=== PATIENT | female | born 1960 | race Caucasian/White ===

== ENCOUNTER 2017-05-04 17:57 | Inpatient (IN) ==
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
[2017-05-04] MEDS ORDERED: Acetaminophen 325 MG TABLET PO ONE (19:57)
[2017-05-04] MEDS ORDERED: Ketorolac 30 MG/ML VIAL IM ONE (20:01)
[2017-05-04] MEDS ORDERED: 0.9 % Sodium Chloride 1,000 ML IVC ONE (20:56)
[2017-05-04] MEDS ORDERED: Ondansetron 4 MG/2 ML VIAL IVP ONE (20:58)
[2017-05-04] MEDS ORDERED: *HR* Morphine 2 MG/ML SYRINGE IVP ONE (20:58)
[2017-05-04 21:31] LABS: Hematocrit 35.3 % (35.3-44.9); Hemoglobin 12.3 g/dL (11.5-15.4); Mean Corpuscular HGB Conc 34.8 g/dL (31.6-35.5); Mean Corpuscular Hemoglobin 30.1 pg (28.0-33.3); Mean Corpuscular Volume 86.3 fL (83.0-100.0); Mean Platelet Volume 10.4 fL (9.4-12.4); Platelet Count 238 K/mcL (140-400); Red Blood Count 4.09 M/mcL (3.82-4.97); Red Cell Distribution Width 13.6 % (11.5-14.5)
[2017-05-04 21:43] LABS: BUN/Creatinine Ratio 21 (6-26); Blood Urea Nitrogen 15 mg/dL (7-20); Calcium 9.6 mg/dL (8.6-10.8); Carbon Dioxide 22 mEq/L (19-29); Chloride 97 mEq/L (98-109); Glucose 122 mg/dL (70-99); Osmolality,Calculated 266 (280-300); Potassium 3.7 mEq/L (3.5-4.5); Sodium 127 mEq/L (136-145); eGFR For African Americans > 60 (> 60); eGFR For Non-African Americans > 60 (> 60)
[2017-05-04 22:05] LABS: Lymphocytes # 1.7 K/mcL (0.6-4.6); Monocytes # 0.6 K/mcL (0.0-1.3); Neutrophils # 25.5 K/mcL (1.6-8.9)
[2017-05-04 22:07] LABS: Platelet Estimate Normal (Normal)
[2017-05-04 22:13] LABS: C-Reactive Protein 365 mg/L (Less than 5)
[2017-05-04] MEDS ORDERED: Vancomycin 750 MG in D5% in Water 250 ML IVPB ONE (23:19)
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
[2017-05-05] MEDS ORDERED: Piperacillin/Tazobactam 4.5 GM in D5% in Water (Mini-Bag+) 100 ML IVPB ONE (02:27)
[2017-05-05] MEDS ORDERED: Ondansetron 4 MG/2 ML VIAL IVP ONE (02:53)
[2017-05-05] MEDS ORDERED: Cefepime HCl 2,000 MG in Water for inj. (sterile) 20 ML IVP ONE (03:00)
--- NOTE | 2017-05-05 03:02 | Internal Med History&Physical ---
<Rigoberto Martinez - Last Filed: 05/05/17 04:29> Date of Encounter: 05/05/17 Time of Encounter: 02:58 Assessment and Plan (1) Neoplastic disease Current visit: Yes Status: Acute Femur XR: - Mottle appearance of the proximal right femur with destructive lesions CT Femur: - Aggressive multifocal lytic lesions of the proximal right femur involving the femoral neck, intertrochanteric femur, and proximal diaphysis compatible with neoplastic disease such as metastasis or myeloma. Suspected acute nondisplaced pathologic fracture of the intertrochanteric femur. Soft tissue component extending deep to and possibly partially within the proximal vastus intermedius muscle. Additionally, there are small lucent lesions seen in the medial and lateral right distal femoral condyles and medial tibial plateau may also represent neoplastic disease. CTA: - Ruled out PE or other acute processes. No lesions seen in the chest. Considering primary lymphoma vs myeloma vs metastatic disease. Ca normal 9.6. Kidney function normal Cr 0.70. - Ordered protein electrophoresis and immunoelectrophoresis. LFTs in the am. Will await imaging/biopsy recommendations with Hem/Onc consult pending. (2) Abscess, gluteal, left Current visit: Yes Status: Acute Surgery managing. No fluctuance noted on exam. NPO IVF @ 125 NS Zosyn (3) Pathologic fracture of femur Current visit: Yes Status: Acute NPO Bed Rest Pain control Ortho and Hem/Onc consult pending Qualifiers: Pathology associated with fracture: neoplastic disease Encounter type: initial encounter Laterality: right Qualified Code(s): M84.551A - Pathological fracture in neoplastic disease, right femur, initial encounter for fracture (4) Leukocytosis Current visit: Yes Status: Acute WBC 28.3 on arrival. Will continue to trend. Blood cultures drawn Zosyn and Vancomycin Qualifiers: Leukocytosis type: unspecified Qualified Code(s): D72.829 - Elevated white blood cell count, unspecified (5) Tobacco abuse Current visit: Yes Status: Chronic Smokes 1PPD for 30 years. Nicotine patch. Internal Medicine - H&P: HPI Chief complaint: right leg pain Admitted From: Home Plans for Post Hospital Care: Home History of present illness: Ms. Zacarias is a very pleasant 56 year old female with a benign past medical history who presents to the [facility] Emergency Department with a chief complaint of right leg pain. 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 Patient landed on her side but the employee fell onto her leg. She felt some achy pain located about her right hip initially but continued to walk on her leg. The non-radiating pain progressively increased over the next two days and her OTC Aleve was not providing relief. Today her pain was 8/10 and she decided to come into the ER for treatment. No history of this complaint previously. On arrival, patient was tachycardic 141 but otherwise stable. EKG showing sinus tachycardia. WBC 28.3, Hgb 12.3, na 127, Cr 0.7 and CRP 365. Blood cultures drawn. Femur XR demonstrated mottle appearance of the proximal right femur with destructive lesions that prompted a CT showing aggressive multifocal lytic lesions of the proximal right femur involving the femoral neck, intertrochanteric femur, and proximal diaphysis compatible with neoplastic disease such as metastasis or myeloma. Suspected acute nondisplaced pathologic fracture of the intertrochanteric femur. Soft tissue component extending deep to and possibly partially within the proximal vastus intermedius muscle. Additionally, there are small lucent lesions seen in the medial and lateral right distal femoral condyles and medial tibial plateau may also represent neoplastic disease. CTA of chest ruled out PE or other acute processes. No lesions seen in the chest. Abd/Pelvis CT revealing fat stranding with multiple bubbles of soft tissue gas in the left perirectal region, left perineum and medial left buttocks. There is no drainable fluid collection/abscess. She was subsequently given Vancomycin , Zosyn and Cefepime. On evaluation, she states that she smokes 1 PPD for 30 years. No EtOH use. Grandfather of colon cancer with no immediate family medical history. She does not follow a PCP at the moment. Gen Surg, Hem/Onc and Ortho consulted. Ms. Zacarias will be admitted to [facility] for further workup and management. Past Med Surg Social Fam HX - Past Medical History Medical history: other Psychiatric history: anxiety - Social History Smoking Status: Current every day smoker Packs per day: 1 Smokeless Tobacco Status: No Alcohol use: none Drug use: marijuana Internal Medicine - H&P: Meds No Known Home Drugs 05/05/17 [History] 3 Allergy/AdvReac Type Severity Reaction Status Date / Time No Known Allergies Allergy Verified 05/04/17 18:30 All Systems PM: A 10-system review of systems was performed and is negative for pertinent findings except as documented above in the HPI. - Constitutional Constitutional: no fatigue, no weight loss - EENT Eyes: no change in vision - Cardiovascular Cardiovascular ROS IM: no chest pain, no diaphoresis, no lightheadedness - Respiratory Respiratory: no cough - Gastrointestinal Gastrointestinal: nausea, no constipation, no diarrhea, no hematemesis, no hematochezia - Genitourinary Genitourinary: no dysuria, no flank pain - Musculoskeletal Musculoskeletal ROS IM: as per HPI - Neurological Neurological ROS: no frequent falls, no headache(s) - Psychiatric Psychiatric: no anxiety, no depression - Constitutional Vitals: Temp Pulse Resp BP Pulse Ox 98.5 F 86 17 93/59 96 05/05/17 01:20 05/05/17 01:20 05/05/17 01:20 05/05/17 01:20 05/05/17 01:20 General appearance: Present: A&O X 3, no acute distress - Head Head exam: Present: atraumatic, normocephalic - Eye Eye exam: Present: EOMI, conjuntiva pink, sclera anicteric - Neck Neck exam general surgery: Present: supple, trachea midline - Respiratory Respiratory exam: Present: CTAB. Absent: accessory muscle use - Cardiovascular Cardiovascular exam: Present: RRR, +S1, +S2 - GI/Abdominal GI/Abdominal exam: Present: normal bowel sounds, soft. Absent: distended, guarding, tenderness - Rectal Rectal exam: Present: deferred - Extremities Exam Extremities exam: Present: normal capillary refill. Absent: calf tenderness, cyanotic - Neurological Exam Neurological exam: Present: oriented X3, no focal deficits - Psychiatric Psychiatric exam: Present: normal affect, normal mood - Skin Skin exam: Present: normal color. Absent: cyanosis, diaphoretic, erythema Internal Med - H&P Results - Labs CBC & Chem 7: 05/04/17 21:13 05/04/17 21:13 <Raphael Kenyon T - Last Filed: 05/05/17 05:10> Date of Encounter: 05/05/17 Assessment and Plan (1) Sepsis Current visit: Yes Status: Acute Qualifiers: Sepsis type: sepsis due to unspecified organism Qualified Code(s): A41.9 - Sepsis, unspecified organism Internal Medicine - H&P: HPI History of present illness: Ms. Zacarias is a 56 year old female All Systems PM: A 10-system review of systems was performed and is negative for pertinent findings except as documented above in the HPI. - Constitutional Vitals: Temp Pulse Resp BP Pulse Ox 99.1 F 94 17 105/65 95 05/05/17 04:33 05/05/17 04:33 05/05/17 04:33 05/05/17 04:33 05/05/17 04:33 Internal Med - H&P Results - Labs CBC & Chem 7: 05/04/17 21:13 05/04/17 21:13 - Attending Attestation I have independently seen and examined this patient on 05/05/17 , and discussed plan of care with the resident whose documentation reflects our plan of care with the exceptions set forth below #Patient has sepsis with tachycardia, elevated WBC and a Right gluteal abscess suspicious for gas producing organcism, of note her R gluteal region is not erythematous. -Continue vanc and Zosyn till cultures are resulted, follow blood cultures, HR and blood pressure improving,continue IVF hydration #Patient also has lytic bony lesions suspicious for lymphoma, less likely multiple myeloma-Send UPEP/SPES. heme/Onc eval. MM in 2013 was normal, has never had a colonoscopy, does not see a PCP #pathologic fracture-Patient had a fall 4 days prior to presentation and continues to ambulate on that limb. Bed rest till ortho eval #Nicotine abuse: She is counselled about cessation, requests NRT Rest of details as in resident physician's documentation
[2017-05-05] MEDS: Piperacillin/Tazobactam 3.375 GM in D5% in Water 50 ML IVPB SCH ×3 (03:32→18:26)
[2017-05-05] MEDS ORDERED: Naloxone 0.4 MG/ML INJ IVP PRN ×2 (04:03→22:44)
[2017-05-05] MEDS ORDERED: Ondansetron 4 MG/2 ML VIAL IVP PRN ×2 (04:03→22:44)
[2017-05-05] MEDS ORDERED: *HR* Morphine 2 MG/ML SYRINGE IVP PRN (04:06)
[2017-05-05] MEDS ORDERED: Ketorolac 30 MG/ML VIAL IVP PRN (04:06)
[2017-05-05] MEDS ORDERED: Vancomycin 750 MG in D5% in Water 250 ML IVPB SCH ×2 (05:00→12:00)
[2017-05-05] MEDS: 0.9 % Sodium Chloride 1,000 ML IVC SCH ×2 (05:21→12:12)
--- NOTE | 2017-05-05 06:46 | Orthopedic Consult Note ---
Date of Encounter: 05/05/17 Time of Encounter: 06:44 History of Present Illness HPI: Ms. Zacarias is a 56 year old female With history of right hip buttock pain for a few months. Patient presented to the ER with increased pain. Patient being evaluated by general surgery for rectal abscess with possible multiple etiologies. Physical exam alert and oriented 3 No acute distress Loose right hip without pain Neurovascular intact X-rays show fracture of the proximal femur was mottled appearance of the proximal femur etiology unknown Presently would keep the patient nonweightbearing right lower extremity follow treatment for abscess hold any definitive surgery for the right femur until better understanding of etiology is known infection has resolved. Risk of seeding the hip is of concern for postoperative infection. We will work closely with the general surgery team and the oncology team to get a better understanding. Past Med Surg Social Fam HX - Past Medical History Medical history: other Psychiatric history: anxiety - Social History Smoking Status: Current every day smoker Packs per day: 1 Smokeless Tobacco Status: No Alcohol use: none Drug use: marijuana Medications and Allergies No Known Home Drugs 05/05/17 [History] 3 Allergy/AdvReac Type Severity Reaction Status Date / Time No Known Allergies Allergy Verified 05/04/17 18:30 All Systems Reviewed: A 10-system review of systems was performed and is negative for pertinent findings except as documented above in the HPI. Physical Exam - Constitutional Vitals: Temp Pulse Resp BP Pulse Ox 99.1 F 94 17 105/65 95 05/05/17 04:33 05/05/17 04:33 05/05/17 04:33 05/05/17 04:33 05/05/17 04:33 Results - Labs Result Diagrams: 05/04/17 21:13 05/04/17 21:13 Labs: Abnormal lab results WBC 28.3 K/mcL (4.3-11.1) H 05/04/17 21:13 Band Neutrophils % 14.0 % (0-4) H 05/04/17 21:13 Metamyelocytes % 2.0 % (0) H 05/04/17 21:13 Neutrophils # 25.5 K/mcL (1.6-8.9) H 05/04/17 21:13 ESR 118 mm/hr (0-15) H 05/04/17 21:13 Sodium 127 mEq/L (136-145) L 05/04/17 21:13 Chloride 97 mEq/L (98-109) L 05/04/17 21:13 Glucose 122 mg/dL (70-99) H 05/04/17 21:13 Calculated Osmolality 266 (280-300) L 05/04/17 21:13 C-Reactive Protein 365 mg/L (Less than 5) H 05/04/17 21:13 All other labs normal. Consult Discharge Plan - Plan Referrals: NONE,PCP [Primary Care Provider] -
[2017-05-05] MEDS ORDERED: Aminoglycoside Consult 1 EACH MC ONE (07:02)
[2017-05-05] MEDS ORDERED: Nicotine 21 MG PATCH.TD24 TD SCH (09:00)
[2017-05-05 09:17] LABS: Basophils % 0.2 %; Lymphocytes % 1.6 %; Red Cell Distribution Width 13.8 % (11.5-14.5)
[2017-05-05 09:19] LABS: Basophils # 0.1 K/mcL (0.0-0.2); Hematocrit 32.4 % (35.3-44.9); Hemoglobin 10.9 g/dL (11.5-15.4); Immature Granulocytes % 1.9 % (0-4); Lymphocytes # 0.4 K/mcL (0.6-4.6); Mean Corpuscular HGB Conc 33.6 g/dL (31.6-35.5); Mean Corpuscular Hemoglobin 29.5 pg (28.0-33.3); Mean Corpuscular Volume 87.8 fL (83.0-100.0); Mean Platelet Volume 10.8 fL (9.4-12.4); Monocytes # 1.2 K/mcL (0.0-1.3); Monocytes % 4.5 %; Neutrophils # 24.5 K/mcL (1.6-8.9); Platelet Count 218 K/mcL (140-400); Red Blood Count 3.69 M/mcL (3.82-4.97); Segmented Neutrophils % 91.8 %
[2017-05-05 09:54] LABS: Burr Cells 1+ (Not Present); Platelet Estimate Normal (Normal)
[2017-05-05] MEDS ORDERED: *HR* Promethazine 25 MG/ML VIAL IVP PRN ×2 (14:14→20:50)
--- NOTE | 2017-05-05 14:22 | Electrocardiograph Report ---
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
--- NOTE | 2017-05-05 17:38 | Internal Med Progress Note ---
Date of Encounter: 05/05/17 Time of Encounter: 17:36 - Assessment and plan (1) Fracture of femur Current Visit: Yes Status: Acute Qualifiers: Encounter type: initial encounter Femur location: intertrochanteric Fracture type: closed Fracture alignment: nondisplaced Laterality: right Qualified Code(s): S72.144A - Nondisplaced intertrochanteric fracture of right femur, initial encounter for closed fracture (2) Abscess, gluteal, left Current Visit: Yes Status: Acute - Subjective Interval history: Admitted for right hip pathological fracture perhaps related to metastatic process and orthopedic and oncology has seen the patient. Also has left gluteal abscess and Gen. surgery has seen the patient. She is on antibiotics. Her workup is in process. - Constitutional Vitals: Temp Pulse Resp BP Pulse Ox 98.2 F 80 15 114/70 95 05/05/17 12:23 05/05/17 12:23 05/05/17 12:23 05/05/17 12:23 05/05/17 12:23 General appearance: Present: A&O X 3, no acute distress - Head Head exam: Present: atraumatic, normocephalic - Eye Eye exam: Present: PERRL, conjuntiva pink, sclera anicteric Pupils: Present: PERRL - Neck Neck exam general surgery: Present: supple, trachea midline. Absent: lymphadenopathy - Respiratory Respiratory exam: Present: CTAB. Absent: accessory muscle use, rales, rhonchi, wheezes - Cardiovascular Cardiovascular exam: Present: RRR, +S1, +S2. Absent: diastolic murmur, gallop, rubs, systolic murmur - GI/Abdominal GI/Abdominal exam: Present: normal bowel sounds, soft, no peritoneal signs. Absent: distended, tenderness - Extremities Exam Extremities exam: Present: warm, radial pulses palpable and symmetrical. Absent : calf tenderness, cyanotic, pedal edema Additional comments: Bilateral hip pain and tenderness neurovascular status is stable - Neurological Exam Neurological exam: Present: CN II-XII intact, oriented X3, no focal deficits. Absent: pronater drift, facial droop, speech deficit - Skin Skin exam: Present: dry, intact Internal Medicine: Result - Labs CBC & Chem 7: 05/05/17 08:57 05/04/17 21:13 Labs: Short CBC 11/21/17 Range/Units 08:57 WBC 26.7 H (4.3-11.1) K/mcL Hgb 10.9 L (11.5-15.4) g/dL Hct 32.4 L (35.3-44.9) % Plt Count 218 (140-400) K/mcL Neutrophils # 24.5 H (1.6-8.9) K/mcL Consult Discharge Plan - Plan Referrals: NONE,PCP [Primary Care Provider] -
--- NOTE | 2017-05-05 18:46 | Oncology Inp Consult Note ---
<Edilma Terry L - Last Filed: 05/05/17 18:34> Date of Encounter: 05/05/17 Time of Encounter: 16:30 Assessment and Plan (1) Fracture of femur Status: Acute Assessment and plan: At this time continued workup is needed to rule out infectious process versus malignancy. Lytic bony lesions may be suspicious for multiple myeloma. Leukocytosis most likely secondary to abscess or infectious process within right femur. Currently there is no other evidence or sign of malignancy within scans obtained thus far. Serum protein electrophoresis and immunoelectrophoresis have already been collected. We will follow with order for serum free light chains and 24-hour urine for Bence Momin protein. Pending these results, if negative, may consider further consult with orthopedics for role for surgical repair along with biopsy of lesion and NM bone scan/MRI if needed at that juncture. Patient would also benefit from annual mammogram screening as it has been 4 years since last mammogram. Recommendation was also given to establish with PCP. No other signs of advanced multiple myeloma with serum calcium within normal limits, no signs of advanced anemia (hgb 10.8), renal function within normal limits. Currently we will focus on pending workup for multiple myeloma, rule out infectious process with blood cultures pending, along with surgical consult for left gluteal abscess. Per patient she is being prepped for surgery this evening with Dr. Wang. The patient's workup for multiple myeloma was explained in detail by myself and Dr. Garza, attending oncologist, who also explained to the patient the need to rule out further infectious process. Oncology will continue to follow this patient's case along with oncologic laboratory results. Please refer to Dr. Garza's attestation for further details regarding patient's plan of care. Qualifiers: Encounter type: initial encounter Femur location: intertrochanteric Fracture type: closed Fracture alignment: nondisplaced Laterality: right Qualified Code(s): S72.144A - Nondisplaced intertrochanteric fracture of right femur, initial encounter for closed fracture - Data of Consult Patient: new to practice Requesting Physician: Heriberto Amezquita MD Primary Care Provider: PCP NONE Family Provider: PCP NONE - Consult Narrative History of present illness: Ms. Zacarias is a 56 year old female who presented to [facility] ER department with a chief complaint of right lower extremity pain. Femur x-ray demonstrated a mottled appearance of the proximal right femur with destructive lesions are prompted a CT. CT shows progressive multifocal lytic lesions of the proximal right femur involving the femoral neck intertrochanteric femur and proximal diaphysis compatible with neoplastic disease such as metastasis from melanoma. Suspected acute nondisplaced pathologic fracture of the intertrochanteric femur. Additionally there are small lucent lesion lesions seen in the medial and lateral right distal femoral condyles and medial tibial plateau which may represent neoplastic disease. CTA of the chest negative. Incidentally abdominal pelvis CT revealed a fat stranding area with multiple bubbles of soft tissue gas in the left perirectal region, left perineum and medial left buttocks. She denies prior GI symptoms such as rectal or abdominal pain, diarrhea, constipation or hematochezia. A left lower extremity pain has been progressive since December. She has been seeing a chiropractor and treating this as sciatica. Following a fall 4 days prior to her presentation to the ER the pain became unbearable. She has been walking with a cane for some time and reports a decrease in muscle mass to her right lower extremity due to the fact she has not been bearing weight on this right side. She presented to [facility] about one month ago and reportedly states doppler was negative for DVT. She reports she has been relatively healthy. She does not have a primary care physician. Medical history significant for anxiety/panic attacks, she took Xanax for some time and has been off this medication for about 4 years. Mammogram was last completed about 4 years ago along with DEXA scan. These results were reportedly negative per patient. She smoked one pack per day for 30 years, smoking cessation encouraged, she is not interested in quitting at this time. Family history significant for malignancy includes maternal grandmother with a history of leukemia or lymphoma patient could not remember exactly at this time , and a sister who has non-Hodgkin's lymphoma. Past Med Surg Social Fam HX - Past Medical History Medical history: other Psychiatric history: anxiety - Social History Smoking Status: Current every day smoker Packs per day: 1 Smokeless Tobacco Status: No Alcohol use: none Drug use: marijuana Medications and Allergies No Known Home Drugs 05/05/17 [History] 3 Allergy/AdvReac Type Severity Reaction Status Date / Time No Known Allergies Allergy Verified 05/04/17 18:30 Constitutional: Present: anorexia, chills, daytime sleepiness, headache(s), malaise Additional comments: Progressive worsening fatigue over past month Eyes: Absent: change in vision Breasts: Absent: mass, pain, nipple discharge, skin changes Cardiovascular: Absent: chest pain, edema, irregular heart rhythm Respiratory: Absent: cough, dyspnea Gastrointestinal: Present: bloating, nausea. Absent: abdominal pain, change in bowel habits, hematochezia, vomiting Genitourinary: Absent: abnormal vaginal bleeding Musculoskeletal: Present: abnormal gait, limited range of motion, radiating pain into limb Additional comments: RLE pain Additional comments: left gluteal abscess Neurological: Absent: focal weakness Psychiatric: Present: anxiety Endocrine: Absent: palpitations Hematologic/Lymphatic: Absent: easy bleeding, lymphadenopathy Oncology - Exam - Constitutional Vitals: Temp Pulse Resp BP Pulse Ox 98.2 F 80 15 114/70 95 05/05/17 12:23 05/05/17 12:23 05/05/17 12:23 05/05/17 12:23 05/05/17 12:23 General appearance: cooperative, no acute distress - Head Head exam: Present: normal inspection - Eye Eye exam: Present: EOMI - ENT ENT exam: Present: mucous membranes moist - Neck Neck exam: Present: full ROM. Absent: lymphadenopathy - Respiratory Respiratory exam: Present: CTAB - Cardiovascular Cardiovascular exam: Present: RRR. Absent: diastolic murmur, systolic murmur - GI/Abdominal GI/Abdominal exam: Present: normal bowel sounds, soft, tenderness. Absent: guarding, rebound - Rectal Additional comments: Left gluteal abscess with erythema tracking from rectum to left buttock - Extremities Exam Extremities exam: Absent: calf tenderness, pedal edema Additional comments: Pain and decrease range of motion to right lower extremity. Pedal pulses present bilaterally +2 - Neurological Exam Neurological exam: Present: alert, oriented X3 - Psychiatric Psychiatric exam: Present: normal affect Oncology - Results Labs: Short CBC 05/05/17 Range/Units 08:57 WBC 26.7 H (4.3-11.1) K/mcL Hgb 10.9 L (11.5-15.4) g/dL Hct 32.4 L (35.3-44.9) % Plt Count 218 (140-400) K/mcL Neutrophils # 24.5 H (1.6-8.9) K/mcL Consult Discharge Plan - Plan Referrals: NONE,PCP [Primary Care Provider] - <Moe Garza Last Filed: 05/06/17 08:37> Date of Encounter: 05/06/17 Time of Encounter: 18:30 - Data of Consult Requesting Physician: Heriberto Amezquita MD Primary Care Provider: PCP NONE Family Provider: PCP NONE - Consult Narrative History of present illness: Ms. Zacarias is a 56 year old female Oncology - Exam - Constitutional Vitals: Temp Pulse Resp BP Pulse Ox 97.9 F 76 24 95/73 97 05/06/17 07:36 05/06/17 06:00 05/06/17 06:00 05/06/17 06:00 05/06/17 06:00 Oncology - Results Labs: Short CBC 05/05/17 05/05/17 05/06/17 Range/Units 08:57 23:11 05:57 WBC 26.7 H 26.5 H 22.2 H (4.3-11.1) K/mcL Hgb 10.9 L 10.6 L 9.4 L (11.5-15.4) g/dL Hct 32.4 L 31.6 L 28.0 L (35.3-44.9) % Plt Count 218 226 219 (140-400) K/mcL Neutrophils # 24.5 H 24.8 H 20.6 H (1.6-8.9) K/mcL BMP 05/05/17 05/06/17 23:11 05:57 Sodium 132 L 134 L Potassium 3.9 4.2 Chloride 103 105 Carbon Dioxide 22 23 BUN 16 14 Creatinine 0.69 0.65 Glucose 119 H 203 H Calcium 8.6 8.4 L Liver Function 05/05/17 05/06/17 Range/Units 23:11 05:57 Total Bilirubin 0.4 0.4 (0.2-1.2) mg/dL AST 15 9 (5-34) Units/L ALT 28 21 (0-55) Units/L Alkaline Phosphatase 145 H 121 (38-126) Units/L Albumin 2.0 L 1.8 L (3.5-5.0) g/dL - Attending Attestation I examined this patient and my medical decision-making was reviewed with the Advanced Practice Nurse. I agree with the documented findings, disposition and treatment plan as described except to the extent set forth below. Ms. Zacarias is a very pleasant 56-year-old woman with multiple acute issues. Regard to her leukocytosis with left shift, this is related to her underlying infection involving her perirectal tissues. This patient does not have an acute leukemia. Dr. Wang is planning for debridement of this lesion later this evening. I expect her white blood cell count to decrease accordingly following treatment with antibiotics and surgery. Regarding her right hip findings, I agree this is suspicious for an underlying malignancy. Multiple myeloma is high on this list. Certainly a metastatic process from a solid tumor is also a possibility, however her CT imaging is unremarkable for a primary site of cancer and breast exam today is also negative. We have sent a serum protein electropheresis, immunofixation and serum free light chain as well as 24 urine collection for Bence-Momin proteinuria to evaluate for underlying paraproteinemia. If this is negative, tissue confirmation will likely require a biopsy of the affected area by Dr. Morris at time of surgery. Other considerations included infection such as osteomyelitis as well as Paget's disease.
[2017-05-05] MEDS ORDERED: *HR* Propofol 200 MG/20 ML VIAL IVP ONE ×3 (19:39→21:58)
[2017-05-05] MEDS ORDERED: *HR* Succinylcholine 200 MG/10 ML VIAL IVP ONE (19:39)
[2017-05-05] MEDS ORDERED: *HR* FentaNYL (PF) 100 MCG/2 ML VIAL ONE ×2 (19:39→21:45)
[2017-05-05] MEDS ORDERED: *HR* Midazolam HCl 2 MG/2 ML VIAL ONE ×3 (19:39→21:57)
[2017-05-05] MEDS ORDERED: Lidocaine -MPF 2% 2 ML VIAL ONE (19:39)
--- NOTE | 2017-05-05 19:50 | Anesthesia Evaluation PreOp ---
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 History: Other (anxiety) Other Medical History: Other (pathological femur fracture, electrolyte abnormalities including hyponatremia (Na = 127), gluteal abscess) Anesthesia History: No Prior Anesthetic Complications (except slow to wake up), Past Anesthesia (tubal) Alcohol Use: none Drug use: marijuana Medications and Allergies No Known Home Drugs 05/05/17 [History] 3 Allergy/AdvReac Type Severity Reaction Status Date / Time No Known Allergies Allergy Verified 05/04/17 18:30 - Meds/Allergy Pre-op Review Medications Reviewed: Yes Allergies Reviewed: Yes Beta Blockers on Current Med List: No Anesthesia Results - Labs 05/05/17 08:57 05/04/17 21:13 - Imaging EKG: report reviewed, image reviewed (ST (HR 132)) Anesthesia Exam Last Vital Signs Temp 98.2 F 05/05/17 12:23 Pulse 80 05/05/17 12:23 Resp 15 05/05/17 12:23 BP 114/70 05/05/17 12:23 Pulse Ox 95 05/05/17 12:23 Weight: 58 kg NPO (# of Hours): > 8 hrs - HEENT Pupil (Motor): Pupils equal, EOMI Mallampati: II Teeth: Edentulous Oral Opening: Greater than 3 - DENTIST ATTENDANT LOC: Oriented - Cardiac Rhythm: Regular Murmur: None - Pulmonary Breath Sounds: bilateral Clear Respiratory Effort: Symmetrical Anesthesia Assess/Plan ASA Score: 3 Modified Viviane Scale for Level of Consciousness: Cooperative, oriented, and tranquil Anesthetic Plan: General Monitoring Plan: Standard Monitors Recovery Plan: PACU
[2017-05-05] MEDS ORDERED: *HR* HYDROmorphone 2 MG/ML SYRINGE ONE (20:36)
[2017-05-05] MEDS ORDERED: Ondansetron 4 MG/2 ML VIAL ONE (20:40)
[2017-05-05] MEDS ORDERED: Dexamethasone 4 MG/ML VIAL ONE (20:40)
[2017-05-05] MEDS ORDERED: *HR* Phenylephrine 10 MG/ML VIAL ONE (20:46)
[2017-05-05] MEDS ORDERED: *HR* HYDROmorphone (PF) 1 MG/ML SYRINGE IVP PRN (20:50)
--- NOTE | 2017-05-05 22:26 | Anesthesia Evaluation Post Op ---
Date of Encounter: 05/05/17 Time of Encounter: 22:24 - Vital Signs Vital Signs: Last Vital Signs Temp 98.2 F 05/05/17 12:23 Pulse 80 05/05/17 12:23 Resp 15 05/05/17 12:23 BP 114/70 05/05/17 12:23 Pulse Ox 95 05/05/17 12:23 - Lungs Lungs: Clear Ascult./Percussion - Airway Airway: Intubated (Patient with significant tongue, lip, and carmen-orbital edema. Decision made to keep patient intubated, in spite of cuff leak with ETT , in case swelling were to worsen or airway became obstruction after extubation. In addition, patient is returning to surgery tomorrow for a second look (with necrotic bowel tissue). Conservatively, patient remained intubated. All vital signs remained stable otherwise.) - Cardiovascular Regular Rate - Mental Status Mental Status: Sedated (Patient sedated with versed and fentanyl post op, as she remains intubated.) - Pain Pain Scale used: Unable to assess - Nausea Vomiting Nausea Vomiting: Unable to assess - Hydration Hydration: NPO - Discharge PostOp Status: Transfer Patient to floor (Patient was sent to ICU, as her facial edema procluded safe extubation. Possible etiologies of the swelling include fluid overload (with just 1L LR given during the case), allergic reaction to medication given, angio-edema, etc. Etiology is still unclear at this time.)
[2017-05-05] MEDS ORDERED: FentaNYL (PF) 1,000 MCG in 0.9 % Sodium Chloride 80 ML IVC SCH ×2 (22:30→22:44)
[2017-05-05] MEDS ORDERED: Lacri-Lube 3.5 GM TUBE BOTH EYES PRN (22:44)
--- NOTE | 2017-05-05 22:49 | Operative Note ---
Date of procedure: 05/05/17 Pre-op diagnosis: perirectal abscess Post-op diagnosis: other (necrotizing soft tissue infection) Procedure: incision and drainage of perirectal abscess, sharp excisional debridement of necrotic perirectal tissue Implants: kerlix guaze x 2 Complications: none Anesthesia: GURWINDERA Surgeon: Álvaro Wang Estimated blood loss (cc): 25 Specimen: perirectal abscess, necrotized perirectal tissue Condition: stable Disposition: PACU (going to ICU) Procedure in Detail: The patient was brought into the operating room suite. Mechanical DVT prophylaxis was placed. She underwent smooth induction of anesthesia. She was placed in the prone position. Prepped and draped in the usual fashion. Preoperative antibiotics were given. A time out was held identifying correct patient, pathology, procedure, and physician. I created a 5cm incision along the lines of langerhan along her left glute and electrocautery was used to dissect deeper into the subcutnaeous tissue. Immediately there was a malodorous drainage. Culture swabs were used to obtain a sample of the fluid. I then used the Edilma instrument to enter into the abscess cavity. Using my finger I was able to bluntly dissect toward the anal canal. I used a bulb syringe with saline to evaluate whether or not there was a connection to the rectum. No saline was seen escaping into the anal canal. At this point I felt confident that there was no fistula. I was able to dissect approximately 8cm deep. I extended the incision, but making a second incision perpendicular to the original. It was at this point that I was able to see necrotizing, non viable tissue. The tissue was easy to bluntly dissect. I used electrocautery to remove any non viable, malodorous tissue. I excised until i encountered bleeding tissue, a marker for healthy, viable tissue. I sent a sample of the tissue for pathology. I continued to look for more necrotic tissue. I was able to find a path that led to the R glute. It arched over the anal canal in a semicircle or horseshoe pattern. It was at this time that I elected to stop because I was concerned about excising to much and 1.) invading into her sphinter muscles ( I am confident that I did not), and 2.) creating a larger defect/wound than was necessary at first operation. I packed the wound with soaking kerlix, covered with an ABD pad and paper tape with plans for a 2nd look procedure tomorrow. The patient tolerated the procedure, but there was concern that she would not extubate safely. I elected to keep the patient intubated.
[2017-05-05 23:18] LABS: Basophils % 0.2 %; Hematocrit 31.6 % (35.3-44.9); Hemoglobin 10.6 g/dL (11.5-15.4); Immature Granulocytes % 0.9 % (0-4); Lymphocytes # 0.4 K/mcL (0.6-4.6); Lymphocytes % 1.5 %; Mean Corpuscular HGB Conc 33.5 g/dL (31.6-35.5); Mean Corpuscular Hemoglobin 29.8 pg (28.0-33.3); Mean Corpuscular Volume 88.8 fL (83.0-100.0); Mean Platelet Volume 10.7 fL (9.4-12.4); Monocytes % 3.9 %; Neutrophils # 24.8 K/mcL (1.6-8.9); Platelet Count 226 K/mcL (140-400); Red Blood Count 3.56 M/mcL (3.82-4.97); Segmented Neutrophils % 93.5 %
[2017-05-05 23:19] LABS: Basophils # 0.1 K/mcL (0.0-0.2)
[2017-05-05] MEDS ORDERED: Cefepime HCl 2,000 MG in D5% in Water (Mini-Bag+) 100 ML IVPB ONE (23:22)
[2017-05-05] MEDS: Pantoprazole 40 MG VIAL IVP SCH (23:27)
[2017-05-05] MEDS: Lacri-Lube 3.5 GM TUBE BOTH EYES SCH (23:31)
[2017-05-05 23:32] LABS: Alanine Aminotransferase 28 Units/L (0-55); Albumin/Globulin Ratio 0.6 (1.1-2.2); Alkaline Phosphatase 145 Units/L (38-126); Aspartate Amino Transferase 15 Units/L (5-34); BUN/Creatinine Ratio 23 (6-26); Bilirubin,Total 0.4 mg/dL (0.2-1.2); Blood Urea Nitrogen 16 mg/dL (7-20); Calcium 8.6 mg/dL (8.6-10.8); Carbon Dioxide 22 mEq/L (19-29); Chloride 103 mEq/L (98-109); Globulin 3.4 g/dL (2.4-3.5); Glucose 119 mg/dL (70-99); Magnesium 1.6 mg/dL (1.6-2.6); Osmolality,Calculated 276 (280-300); Phosphorous 2.8 mg/dL (2.3-4.7); Potassium 3.9 mEq/L (3.5-4.5); Sodium 132 mEq/L (136-145); Total Protein 5.4 g/dL (6.0-8.3); eGFR For African Americans > 60 (> 60); eGFR For Non-African Americans > 60 (> 60)
[2017-05-05 23:35] LABS: Toxic Granulation Present (Not Present)
[2017-05-05] MEDS: D5% in Lactated Ringers 1,000 ML IVC SCH (23:58)
[2017-05-06] MEDS: Piperacillin/Tazobactam 3.375 GM in D5% in Water 50 ML IVPB SCH ×3 (02:15→18:36)
[2017-05-06] MEDS: Lacri-Lube 3.5 GM TUBE BOTH EYES SCH ×4 (04:07→20:35)
[2017-05-06 05:09] LABS: ABG Base Excess -1 mEq/L (-2 to 3); ABG HCO3 24 mEq/L (21-27); ABG Oxygen Saturation 96 % (95-98); ABG PCO2 38 mmHg (35-45); ABG PH 7.41 pH Units (7.32-7.45); ABG PO2 82 mmHg (85-104); ABG TCO2 25 mEq/L (20-26); Blood Gas Modality VC; Blood Gas PEEP 5 cm H2O; Blood Gas Respiration Rate 12; Blood Gas VT 500 cc
[2017-05-06] MEDS: Pantoprazole 40 MG VIAL IVP SCH (05:39)
[2017-05-06] MEDS ORDERED: *HR* Enoxaparin 40 MG/0.4 ML SYRINGE SQ SCH (06:00)
[2017-05-06 06:05] LABS: Basophils % 0.1 %; Hemoglobin 9.4 g/dL (11.5-15.4); Immature Granulocytes % 0.7 % (0-4); Lymphocytes # 0.6 K/mcL (0.6-4.6); Lymphocytes % 2.6 %; Mean Corpuscular HGB Conc 33.6 g/dL (31.6-35.5); Mean Corpuscular Hemoglobin 29.5 pg (28.0-33.3); Mean Corpuscular Volume 87.8 fL (83.0-100.0); Mean Platelet Volume 10.8 fL (9.4-12.4); Monocytes # 0.8 K/mcL (0.0-1.3); Monocytes % 3.8 %; Neutrophils # 20.6 K/mcL (1.6-8.9); Platelet Count 219 K/mcL (140-400); Red Blood Count 3.19 M/mcL (3.82-4.97); Red Cell Distribution Width 14.1 % (11.5-14.5); Segmented Neutrophils % 92.8 %
[2017-05-06] MEDS ORDERED: FentaNYL (PF) 3,000 MCG in 0.9 % Sodium Chloride 240 ML IVC SCH (06:15)
[2017-05-06 06:26] LABS: Alanine Aminotransferase 21 Units/L (0-55); Albumin/Globulin Ratio 0.6 (1.1-2.2); Alkaline Phosphatase 121 Units/L (38-126); Aspartate Amino Transferase 9 Units/L (5-34); BUN/Creatinine Ratio 22 (6-26); Bilirubin,Total 0.4 mg/dL (0.2-1.2); Blood Urea Nitrogen 14 mg/dL (7-20); Calcium 8.4 mg/dL (8.6-10.8); Carbon Dioxide 23 mEq/L (19-29); Chloride 105 mEq/L (98-109); Globulin 3.1 g/dL (2.4-3.5); Glucose 203 mg/dL (70-99); Magnesium 1.8 mg/dL (1.6-2.6); Osmolality,Calculated 284 (280-300); Potassium 4.2 mEq/L (3.5-4.5); Sodium 134 mEq/L (136-145); Total Protein 4.9 g/dL (6.0-8.3); eGFR For African Americans > 60 (> 60); eGFR For Non-African Americans > 60 (> 60)
[2017-05-06 06:28] LABS: Albumin 1.8 g/dL (3.5-5.0)
[2017-05-06] MEDS: D5% in Lactated Ringers 1,000 ML IVC SCH ×3 (07:56→20:31)
[2017-05-06] MEDS ORDERED: Dexmedetomidine HCl 400 MCG/100 ML MLS IVC SCH (08:15)
--- NOTE | 2017-05-06 08:52 | Anesthesia Progress Note ---
Date of Encounter: 05/06/17 Time of Encounter: 08:50 Anesthesia Note - Note Note: 05/06/17 08:50 Patient returning to the OR today. Had surgery <24 hours ago. Remains intubated and ventilated. No change in medical condition. Will proceed to surgery.
--- NOTE | 2017-05-06 08:55 | Pulmonology Consult Note ---
<Chloe Gill - Last Filed: 05/06/17 09:20> Date of Encounter: 05/06/17 Time of Encounter: 08:43 Assessment and Plan (1) Endotracheally intubated Current Visit: Yes Status: Acute (2) Fracture of femur Current Visit: Yes Status: Acute CT of the femur shows suspected acute nondisplaced pathologic fracture of the intertrochanteric femur. -Management per primary team, orthopedics, surgery, and heme/onc. Qualifiers: Encounter type: initial encounter Femur location: intertrochanteric Fracture type: closed Fracture alignment: nondisplaced Laterality: right Qualified Code(s): S72.144A - Nondisplaced intertrochanteric fracture of right femur, initial encounter for closed fracture (3) Leukocytosis Current Visit: Yes Status: Acute Qualifiers: Leukocytosis type: unspecified Qualified Code(s): D72.829 - Elevated white blood cell count, unspecified (4) Neoplastic disease Current Visit: Yes Status: Acute (5) Abscess, gluteal, left Current Visit: Yes Status: Acute (6) Tobacco abuse Current Visit: Yes Status: Chronic (7) Mechanical deep vein thrombosis (DVT) prophylaxis in place Current Visit: Yes Status: Acute EPCDs History of Present Illness Consult date: 05/06/17 Requesting physician: Rosas Mei Reason for consult: other (Vent management) Chief complaint: Right LE pain, left gluteal pain History of present illness: Ms. Zacarias is a 56-year-old woman with a benign past medical history who presented to [facility] emergency department with the chief complaint of right leg pain. 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 She stated she subsequently developed some right-sided hip pain which progressively worsened over the next 2 days. She stated Aleve did not provide sufficient pain relief. On arrival to the ER, patient was tachycardic, but otherwise hemodynamically stable. EKG showed sinus tachycardia. She had marked leukocytosis with a white blood cell count of 28.3. She also had elevated CRP of 365. Blood cultures were drawn. Subsequent imaging including a femur x-ray CT of the right femur, pelvic CT, and CTA of the chest revealed progressive multifocal lytic lesions of the proximal right femur involving the femoral neck , intertrochanteric femur, and proximal diaphysis compatible with neoplastic diseases. There was also a suspected acute nondisplaced pathological fracture of the intertrochanteric femur. 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 Patient was started on broad-spectrum vancomycin, Zosyn, and cefepime. Surgery , heme/onc, and orthopedics were consulted. Patient was taken to the OR for surgical debridement and exploration of her left gluteal infection. Intraoperatively, it was decided that the patient would need a second surgery, and the decision was made to avoid extubation. We were consulted to manage the ventilator while patient awaits her second surgery. The patient is currently being worked up for multiple myeloma, other metastatic conditions, or infectious processes. Patient's remaining workup so far does not seem to indicate malignancy, other than highly concerning imaging. Past Med Surg Social Fam HX - Past Medical History Source: unable to obtain (Patient sedated on the ventilator) Medical history: other Psychiatric history: anxiety - Social History Smoking Status: Current every day smoker Packs per day: 1 Smokeless Tobacco Status: No Alcohol use: none Drug use: marijuana Medications and Allergies No Known Home Drugs 05/05/17 [History] 3 Allergy/AdvReac Type Severity Reaction Status Date / Time No Known Allergies Allergy Verified 05/04/17 18:30 ROS unobtainable: due to endotracheal tube All Systems: A 10-system review of systems was performed and is negative for pertinent findings except as documented above in the HPI. - Constitutional Constitutional: as per HPI, no fever(s), no weight loss - Cardiovascular Cardiovascular: no chest pain, no lightheadedness, no orthopnea - Musculoskeletal Musculoskeletal: muscle weakness (Right thigh muscular weakness and wasting.), radiating pain into limb (Right-sided), no limited range of motion - Neurological Neurological: abnormal gait (Right-sided limp), radicular pain (Sciatica) - Psychiatric Psychiatric: anxiety Physical Examination Vital Signs: Vital Signs, Last 4 Hours Temp Pulse Resp BP Pulse Ox 05/06/17 07:36 97.9 F 05/06/17 06:00 76 24 95/73 97 05/06/17 05:23 14 82/53 96 05/06/17 05:00 66 14 82/53 95 General appearance: other (Sedated on Versed on the ventilator) Eyes: nonicteric ENT: oropharynx moist Effort: other (Sedated on the ventilator) Auscultation: bilateral: clear Cardiovascular: regular rate and rhythm Gastrointestinal: normoactive bowel sounds, non-distended Integumentary: normal, other (Patient with a large open wound on her left gluteus with Curlex in place. No surrounding induration, crepitance, or fluctuance.) Extremities: no cyanosis, no edema, no clubbing, pink and warm, pulses normal Musculoskeletal: no deformities unable to assess due to mental status Ventilator Settings Ventilator Settings: Ventilator Settings, Last 8 Hours Ventilator Mode VC+ Ventilator Mode VC+ Ventilator Mode VC+ Ventilator Mode VC+ Ventilator Mode VC+ Ventilator Mode VC+ Ventilator Mode VC+ Ventilator Mode VC+ Ventilator Mode VC+ Ventilator Mode VC+ Ventilator Tidal Volume 500 Setting Ventilator Tidal Volume 500 Setting Ventilator Tidal Volume 500 Setting Ventilator Tidal Volume 500 Setting Ventilator Tidal Volume 500 Setting Ventilator Tidal Volume 500 Setting Ventilator Tidal Volume 500 Setting Ventilator Tidal Volume 500 Setting Ventilator Tidal Volume 500 Setting Ventilator Tidal Volume 500 Setting Ventilator Respiratory Rate 12 Setting Ventilator Respiratory Rate 12 Setting Ventilator Respiratory Rate 12 Setting Ventilator Respiratory Rate 12 Setting Ventilator Respiratory Rate 12 Setting Ventilator Respiratory Rate 12 Setting Ventilator Respiratory Rate 12 Setting Ventilator Respiratory Rate 12 Setting Ventilator Respiratory Rate 12 Setting Ventilator Respiratory Rate 12 Setting Actual Respiratory Rate 24 Actual Respiratory Rate 14 Actual Respiratory Rate 14 Actual Respiratory Rate 15 Actual Respiratory Rate 13 Actual Respiratory Rate 13 Actual Respiratory Rate 14 Actual Respiratory Rate 12 Actual Respiratory Rate 14 Positive End Expiratory 5 Pressure Positive End Expiratory 5 Pressure Positive End Expiratory 5 Pressure Positive End Expiratory 5 Pressure Positive End Expiratory 5 Pressure Positive End Expiratory 5 Pressure Positive End Expiratory 5 Pressure Positive End Expiratory 5 Pressure Positive End Expiratory 5 Pressure Positive End Expiratory 5 Pressure Peak Inspiratory Airway 15 Pressure Peak Inspiratory Airway 20 Pressure Peak Inspiratory Airway 19 Pressure Peak Inspiratory Airway 18 Pressure Peak Inspiratory Airway 18 Pressure Peak Inspiratory Airway 21 Pressure Peak Inspiratory Airway 14 Pressure Peak Inspiratory Airway 13 Pressure Peak Inspiratory Airway 16 Pressure Results - Laboratory Findings CBC and BMP: 05/06/17 05:57 05/06/17 05:57 ABG ABG pH 7.41 pH Units (7.32-7.45) 05/06/17 05:05 ABG pCO2 38 mmHg (35-45) 05/06/17 05:05 ABG pO2 82 mmHg (85-104) L 05/06/17 05:05 ABG O2 Saturation 96 % (95-98) 05/06/17 05:05 Abnormal lab findings: Abnormal lab results WBC 22.2 K/mcL (4.3-11.1) H 05/06/17 05:57 RBC 3.19 M/mcL (3.82-4.97) L 05/06/17 05:57 Hgb 9.4 g/dL (11.5-15.4) L 05/06/17 05:57 Hct 28.0 % (35.3-44.9) L 05/06/17 05:57 Band Neutrophils % 14.0 % (0-4) H 05/04/17 21:13 Metamyelocytes % 2.0 % (0) H 05/04/17 21:13 Neutrophils # 20.6 K/mcL (1.6-8.9) H 05/06/17 05:57 Toxic Granulation Present (Not Present) A 05/05/17 23:11 Beasley Cells 1+ (Not Present) A 05/05/17 08:57 ESR 118 mm/hr (0-15) H 05/04/17 21:13 ABG pO2 82 mmHg (85-104) L 05/06/17 05:05 Sodium 134 mEq/L (136-145) L 05/06/17 05:57 Glucose 203 mg/dL (70-99) H 05/06/17 05:57 POC Glucose 129 (58-89) H 05/05/17 22:12 Calcium 8.4 mg/dL (8.6-10.8) L 05/06/17 05:57 C-Reactive Protein 365 mg/L (Less than 5) H 05/04/17 21:13 Serum Total Protein 4.9 g/dL (6.0-8.3) L 05/06/17 05:57 Albumin 1.8 g/dL (3.5-5.0) L 05/06/17 05:57 Albumin/Globulin Ratio 0.6 (1.1-2.2) L 05/06/17 05:57 - Microbiology Findings Microbiology Findings: Microbiology, Last 48 Hours 05/05/17 22:58 Surgical Biopsy Culture - Preliminary Buttock - Clinical Findings Intake & Output: Intake & Output 05/05/17 05/06/17 05/06/17 23:59 07:59 15:59 Intake Total 50 / 50 1450 / 1450 Output Total 525 / 525 Balance 925 / 925 Consult Discharge Plan - Plan Referrals: NONE,PCP [Primary Care Provider] - <Maryann Willis M - Last Filed: 05/06/17 11:21> Date of Encounter: 05/06/17 All Systems: A 10-system review of systems was performed and is negative for pertinent findings except as documented above in the HPI. Physical Examination Vital Signs: Vital Signs, Last 4 Hours Temp Pulse Resp BP Pulse Ox 05/06/17 10:00 64 18 78/51 97 05/06/17 09:25 21 95 05/06/17 09:00 63 20 79/52 93 05/06/17 08:30 64 14 78/51 97 05/06/17 07:36 97.9 F 05/06/17 07:30 63 14 80/51 97 05/06/17 07:21 14 97 Ventilator Settings Ventilator Settings: Ventilator Settings, Last 8 Hours Ventilator Mode VC+ Ventilator Mode VC+ Ventilator Mode VC+ Ventilator Mode VC+ Ventilator Mode VC+ Ventilator Mode VC+ Ventilator Mode VC+ Ventilator Mode VC+ Ventilator Mode VC+ Ventilator Mode VC+ Ventilator Mode VC+ Ventilator Mode VC+ Ventilator Tidal Volume 500 Setting Ventilator Tidal Volume 500 Setting Ventilator Tidal Volume 500 Setting Ventilator Tidal Volume 500 Setting Ventilator Tidal Volume 500 Setting Ventilator Tidal Volume 500 Setting Ventilator Tidal Volume 500 Setting Ventilator Tidal Volume 500 Setting Ventilator Tidal Volume 500 Setting Ventilator Tidal Volume 500 Setting Ventilator Tidal Volume 500 Setting Ventilator Tidal Volume 500 Setting Ventilator Respiratory Rate 12 Setting Ventilator Respiratory Rate 12 Setting Ventilator Respiratory Rate 12 Setting Ventilator Respiratory Rate 12 Setting Ventilator Respiratory Rate 12 Setting Ventilator Respiratory Rate 12 Setting Ventilator Respiratory Rate 12 Setting Ventilator Respiratory Rate 12 Setting Ventilator Respiratory Rate 12 Setting Ventilator Respiratory Rate 12 Setting Ventilator Respiratory Rate 12 Setting Ventilator Respiratory Rate 12 Setting Actual Respiratory Rate 18 Actual Respiratory Rate 21 Actual Respiratory Rate 20 Actual Respiratory Rate 14 Actual Respiratory Rate 14 Actual Respiratory Rate 14 Actual Respiratory Rate 24 Actual Respiratory Rate 14 Actual Respiratory Rate 14 Actual Respiratory Rate 15 Actual Respiratory Rate 13 Positive End Expiratory 5 Pressure Positive End Expiratory 5 Pressure Positive End Expiratory 5 Pressure Positive End Expiratory 5 Pressure Positive End Expiratory 5 Pressure Positive End Expiratory 5 Pressure Positive End Expiratory 5 Pressure Positive End Expiratory 5 Pressure Positive End Expiratory 5 Pressure Positive End Expiratory 5 Pressure Positive End Expiratory 5 Pressure Positive End Expiratory 5 Pressure Peak Inspiratory Airway 25 Pressure Peak Inspiratory Airway 25 Pressure Peak Inspiratory Airway 24 Pressure Peak Inspiratory Airway 18 Pressure Peak Inspiratory Airway 18 Pressure Peak Inspiratory Airway 18 Pressure Peak Inspiratory Airway 15 Pressure Peak Inspiratory Airway 20 Pressure Peak Inspiratory Airway 19 Pressure Peak Inspiratory Airway 18 Pressure Peak Inspiratory Airway 18 Pressure Results - Laboratory Findings CBC and BMP: 05/06/17 05:57 05/06/17 05:57 ABG ABG pH 7.41 pH Units (7.32-7.45) 05/06/17 05:05 ABG pCO2 38 mmHg (35-45) 05/06/17 05:05 ABG pO2 82 mmHg (85-104) L 05/06/17 05:05 ABG O2 Saturation 96 % (95-98) 05/06/17 05:05 Abnormal lab findings: Abnormal lab results WBC 22.2 K/mcL (4.3-11.1) H 05/06/17 05:57 RBC 3.19 M/mcL (3.82-4.97) L 05/06/17 05:57 Hgb 9.4 g/dL (11.5-15.4) L 05/06/17 05:57 Hct 28.0 % (35.3-44.9) L 05/06/17 05:57 Band Neutrophils % 14.0 % (0-4) H 05/04/17 21:13 Metamyelocytes % 2.0 % (0) H 05/04/17 21:13 Neutrophils # 20.6 K/mcL (1.6-8.9) H 05/06/17 05:57 Toxic Granulation Present (Not Present) A 05/05/17 23:11 Beasley Cells 1+ (Not Present) A 05/05/17 08:57 ESR 118 mm/hr (0-15) H 05/04/17 21:13 ABG pO2 82 mmHg (85-104) L 05/06/17 05:05 Sodium 134 mEq/L (136-145) L 05/06/17 05:57 Glucose 203 mg/dL (70-99) H 05/06/17 05:57 POC Glucose 129 (58-89) H 05/05/17 22:12 Calcium 8.4 mg/dL (8.6-10.8) L 05/06/17 05:57 C-Reactive Protein 365 mg/L (Less than 5) H 05/04/17 21:13 Serum Total Protein 4.9 g/dL (6.0-8.3) L 05/06/17 05:57 Albumin 1.8 g/dL (3.5-5.0) L 05/06/17 05:57 Albumin/Globulin Ratio 0.6 (1.1-2.2) L 05/06/17 05:57 - Microbiology Findings Microbiology Findings: Microbiology, Last 48 Hours 05/05/17 22:58 Surgical Biopsy Culture - Preliminary Buttock - Clinical Findings Intake & Output: Intake & Output 05/05/17 05/06/17 05/06/17 23:59 07:59 15:59 Intake Total 50 / 50 1450 / 1450 100 / 100 Output Total 525 / 525 Balance 925 / 925 100 / 100 - Attending Attestation I examined this patient and my medical decision-making was reviewed with the Resident Physician. I agree with the documented findings, disposition and treatment plan as described except to the extent set forth below. Patient seen and examined. Labs, radiology, chart personally reviewed. Agree with resident's history and physical, assessment, plan with following comments: LIFE COACH: Patient responded to stimulus and patient is on sedation I would like to change versed to Precedex, Pulmonary: Acceptable oxygenation and ventilation. Patient is going back to surgery and will continue mechanical invasive ventilation. I suspect it will be easy to get her off the ventilator unless she is hemodynamically unstable. Cardiovascular: hypotension and will give fluid. If she does not respond to fluid then will need to start vasopressors. GI: Nutrition per dietary and GI prophylaxis per routine Heme: DVT prophylaxis per routine. Oncology is following ID: Continue antibiotics and plan to de-escalation. Infection is in the differential diagnosis and broad-spectrum antibiotics. Sepsis is the possibility. Renal; urine out put and renal funtion reviewed. Patient with hypotension and this could be multifactorial. Endorcine: blood glucose is monitored Lines: all lines checked and no evidence of infections Skin: skin care to prevent pressure ulcers per nursing routine care Patient will need to come to ICU after surgery because prognosis could be poor and she might need vasopressors. I spent 35 min of Critical Care time with this patient. It involved decision making of high complexity to assess, manipulate, and support vital organ system failure and/or to prevent further life threatening deterioration of the patient' s condition. The time involved in the performance of separately reportable procedures was not counted toward critical care time.
[2017-05-06] MEDS ORDERED: Nicotine 21 MG PATCH.TD24 TD SCH (09:00)
[2017-05-06] MEDS ORDERED: Chlorhexidine Rinse 15 ML MOUTHWASH MM SCH (09:00)
[2017-05-06] MEDS ORDERED: 0.9 % Sodium Chloride 1,000 ML IVC ONE (10:12)
[2017-05-06] MEDS ORDERED: Vancomycin 1,000 MG VIAL ONE (10:38)
--- NOTE | 2017-05-06 10:44 | General Surgery Progress Note ---
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 POD #1 s/p excisional debridement - cont IV abx with zosyn and zyvox - IVF - OR today for 2nd look and further excisional debridement (2) Sepsis Current Visit: Yes Status: Acute 2/2 mari's gangrene; currenlty hypotensive, but UOP ~ 80cc/hr, MAPs ~ high 50s to low 60s - cont abx regimen - follow up cultures - CVC, a line - bolus PRN - MAPs 60 or greater -cont mcgowan catheter to monitor UOP in light of septic state - pressors if unresponsive to fluids; per ICU protocol - cont fent/versed; sedation per ICU - cont dvt prophylaxis Qualifiers: Sepsis type: sepsis due to unspecified organism Qualified Code(s): A41.9 - Sepsis, unspecified organism Subjective Patient reports: other (intubated; good UOP overnight; hypotensive overnight; no fluid boluses) Objective Vital Signs - Last 8 Hours Temp Pulse Resp BP Pulse Ox 05/06/17 10:00 64 18 78/51 97 05/06/17 09:25 21 95 05/06/17 09:00 63 20 79/52 93 05/06/17 08:30 64 14 78/51 97 05/06/17 07:36 97.9 F 05/06/17 07:30 63 14 80/51 97 05/06/17 07:21 14 97 05/06/17 06:00 76 24 95/73 97 05/06/17 05:23 14 82/53 96 05/06/17 05:00 66 14 82/53 95 05/06/17 04:36 98.4 F 05/06/17 04:00 63 15 86/54 95 05/06/17 03:49 14 80/52 95 05/06/17 03:00 63 13 80/50 95 Intake and Output 05/05/17 05/06/17 05/06/17 23:59 07:59 15:59 Intake Total 1450 / 1450 100 / 100 Output Total 525 / 525 Balance 925 / 925 100 / 100 Intake: IV Fluids 50 / 50 1450 / 1450 100 / 100 D5% & Lact. Ringers 1000 Ml Bag 1000 / 1000 1,000 ML @ 125 mls/hr IVC .Q8H [facility] Rx#:[id number] FentaNYL (PF) 1,000 MCG In 0.9 100 / 100 % Sodium Chloride 80 ML @ 25 MCG/HR 2.5 mls/hr IVC CONT [facility] Rx#:[id number] Versed 50 MG In 0.9 % Sodium 100 / 100 Chloride 90 ML @ 2 MG/HR 4 mls/ hr IVC CONT [facility] Rx#:[id number] Zyvox Premix 600mg/300mL 600 mg 300 / 300 In 300 ml @ 150 mls/hr IVPB Q12HR [facility] Rx#:[id number] Zosyn 3.375 GM In Dextrose 5% ( 50 / 50 50 / 50 ADD-[place]) 50 ML @ 12.5 mls/ hr IVPB Q8H [facility] Rx#:[id number] Oral 0 / 0 0 / 0 Output: Estimated Blood Loss 25 / 25 Catheter 525 / 525 Other: Blood Glucose* 129 - General physical appearance well developed, well nourished - Respiratory normal expansion, other - Cardiovascular Cardiovascular exam: Present: RRR, bradycardia (HR @ 59 on exam) - Abdomen Abdomen: Present: soft - Labs 05/06/17 05:57 05/06/17 05:57 Diabetes panel 05/05/17 05/06/17 Range/Units 23:11 05:57 Sodium 132 L 134 L (136-145) mEq/L Potassium 3.9 4.2 (3.5-4.5) mEq/L Chloride 103 105 (98-109) mEq/L Carbon Dioxide 22 23 (19-29) mEq/L BUN 16 14 (7-20) mg/dL Creatinine 0.69 0.65 (0.57-1.11) mg/dL Glucose 119 H 203 H (70-99) mg/dL Calcium 8.6 8.4 L (8.6-10.8) mg/dL AST 15 9 (5-34) Units/L ALT 28 21 (0-55) Units/L Alkaline Phosphatase 145 H 121 (38-126) Units/L Albumin 2.0 L 1.8 L (3.5-5.0) g/dL Calcium panel 05/05/17 05/06/17 Range/Units 23:11 05:57 Calcium 8.6 8.4 L (8.6-10.8) mg/dL Phosphorus 2.8 3.0 (2.3-4.7) mg/dL Albumin 2.0 L 1.8 L (3.5-5.0) g/dL Pituitary panel 05/05/17 05/06/17 Range/Units 23:11 05:57 Sodium 132 L 134 L (136-145) mEq/L Potassium 3.9 4.2 (3.5-4.5) mEq/L Chloride 103 105 (98-109) mEq/L Carbon Dioxide 22 23 (19-29) mEq/L BUN 16 14 (7-20) mg/dL Creatinine 0.69 0.65 (0.57-1.11) mg/dL Glucose 119 H 203 H (70-99) mg/dL Calcium 8.6 8.4 L (8.6-10.8) mg/dL Adrenal panel 05/05/17 05/06/17 Range/Units 23:11 05:57 Sodium 132 L 134 L (136-145) mEq/L Potassium 3.9 4.2 (3.5-4.5) mEq/L Chloride 103 105 (98-109) mEq/L Carbon Dioxide 22 23 (19-29) mEq/L BUN 16 14 (7-20) mg/dL Creatinine 0.69 0.65 (0.57-1.11) mg/dL Glucose 119 H 203 H (70-99) mg/dL Calcium 8.6 8.4 L (8.6-10.8) mg/dL Total Bilirubin 0.4 0.4 (0.2-1.2) mg/dL AST 15 9 (5-34) Units/L ALT 28 21 (0-55) Units/L Alkaline Phosphatase 145 H 121 (38-126) Units/L Albumin 2.0 L 1.8 L (3.5-5.0) g/dL - VTE Documentation of Mechanical Device: Intermittent pneumatic compression device Consult Discharge Plan - Plan Referrals: NONE,PCP [Primary Care Provider] -
[2017-05-06] MEDS ORDERED: *HR* Phenylephrine 10 MG/ML VIAL ONE (11:27)
[2017-05-06] MEDS ORDERED: *HR* Rocuronium Bromide 50 MG/5 ML VIAL ONE (11:27)
[2017-05-06] MEDS ORDERED: *HR* FentaNYL (PF) 100 MCG/2 ML VIAL ONE (11:27)
[2017-05-06] MEDS ORDERED: Heparin 1,000 UNITS/500 mL NS 500 ML ONE (11:27)
--- NOTE | 2017-05-06 11:30 | Anesthesia Procedures ---
Date of Encounter: 05/06/17 Time of Encounter: 10:40 Procedures: Anesthesia - Arterial Line Time out performed: Yes Sedation: Versed (mg): 2 Sedation: Fentanyl (mcg): 100 Size (Gauge): 20 Length (inches): 1 3/4 Technique Used: sterile prep, guide wire technique Post-Procedure: line taped into place Patient tolerated procedure: well, no complications Complications: none Site: Radial L Vitals: on ventilator, induction started
[2017-05-06] MEDS ORDERED: Lidocaine -MPF 2% 2 ML VIAL ONE (11:36)
[2017-05-06] MEDS ORDERED: *HR* HYDROmorphone 2 MG/ML SYRINGE ONE (11:37)
--- NOTE | 2017-05-06 11:47 | Anesthesia Procedures ---
Date of Encounter: 05/06/17 Time of Encounter: 12:00 Procedures: Anesthesia - Central Line Placement Right SC Consent obtained: verbal consent (Patient intubated and on vent with sedation. Dr. Schaffer has requested a central line placed) Time out performed: Yes Patient placed on monitor/pulse ox: Yes MD prep: mask, gown, gloves Central line prep: Chlorhexidine scrub Ultrasound used for placement: No Technique: Seldinger Lumen Inserted: triple Size / Length: 7 Fr / 16 cm Post procedure: sutured in place, good blood return, all ports aspirated, flushed, capped, sterile dressing applied Patient tolerated procedure: well, no complications Complications: none Comments: Dr Schaffer has requested central line. Right subclavian site chosen. Placed easily with one attempt. Aspiration of blood easy and guide wire placed easily. Catheter placed without difficulty and all ports aspirated easily and flushed. Will get CXR in the ICU.
[2017-05-06] MEDS ORDERED: *HR* Midazolam HCl 2 MG/2 ML VIAL ONE (11:52)
--- NOTE | 2017-05-06 12:23 | Operative Note ---
Date of procedure: 05/06/17 Pre-op diagnosis: mari's gangrene Post-op diagnosis: same Procedure: excisional debridement of mari's gangrene Implants: dakin's soaked guaze Complications: none Anesthesia: GURWINDERA Surgeon: Álvaro Wang Estimated blood loss (cc): 100 Condition: stable Disposition: ICU Procedure in Detail: The patient was brought into the operating room suite. Mechanical DVT prophylaxis was placed. She underwent smooth induction of anesthesia. She was placed in the prone position. Prepped and draped in the usual fashion. Preoperative antibiotics were given. A time out was held identifying correct patient, pathology, procedure, and physician. I removed the kerlix that was already packed. I removed the two rolls that were placed. Using the scissors, I excised the skin edges from my original incision until there was bleeding at the edges. I also removed any obvious necrotic tissue. I then used my finger I was able to bluntly dissect more of the soft tissue, more laterally this time. It tracked about 17cm. I extended the incision to ensure I had good visualization. Again, all tissue looked viable, pink and was bleeding. I then focused on the tract to the right glute. I made a counter incision and dissected down to the soft tissue and into the track that was there using electrocautery. All tissue looked viable and had good blood flow. I then took three kerlix rolls soaked in dakin's solution and packed the cavity. I then ended the procedure with plans for another look tomorrow. The patient tolerated the procedure and escorted to ICU in stable condition. The size of the cavity as the end of the case was 17cm x 6cm x 12cm; the track to the right side is ~ 12cm in length
[2017-05-06] MEDS ORDERED: Lacri-Lube 3.5 GM TUBE BOTH EYES PRN (12:37)
[2017-05-06] MEDS ORDERED: Naloxone 0.4 MG/ML INJ IVP PRN (12:37)
[2017-05-06] MEDS ORDERED: Ondansetron 4 MG/2 ML VIAL IVP PRN (12:37)
[2017-05-06] MEDS ORDERED: Vancomycin 750 MG in D5% in Water 250 ML IVPB SCH (14:00)
[2017-05-06] MEDS: Clindamycin 600 MG/50 ML 600 MG/50 ML IV.SOLN IVPB SCH ×2 (15:41→20:30)
[2017-05-06] MEDS ORDERED: D5% in Water 1,000 ML IVC PRN (15:58)
[2017-05-06] MEDS ORDERED: Dextrose Gel 15 GM PO PRN ×2 (15:58)
[2017-05-06] MEDS ORDERED: *HR* Dextrose 50 % in Water (Syg) 50 ML SYRINGE IVP PRN (15:58)
[2017-05-06] MEDS: Vancomycin 750 MG in D5% in Water 250 ML IVPB SCH (16:05)
--- NOTE | 2017-05-06 17:50 | Oncology Inp Progress Note ---
Date of Encounter: 05/06/17 Time of Encounter: 17:40 (1) Fracture of femur Current Visit: Yes Status: Acute Assessment and plan: Imaging, I see no evidence for primary malignancy. Paraproteinemia workup is pending. If this is negative, we will likely have to pursue biopsy in the care of Dr. Morris at time of hip stabilization. Qualifiers: Encounter type: initial encounter Femur location: intertrochanteric Fracture type: closed Fracture alignment: nondisplaced Laterality: right Qualified Code(s): S72.144A - Nondisplaced intertrochanteric fracture of right femur, initial encounter for closed fracture (2) Abscess, gluteal, left Current Visit: Yes Status: Acute Assessment and plan: She is clinically responding to surgical debridement and antibiotics. Her white cell count is decreasing. I understand she will go under further debridement tomorrow in the care of Dr. Wang. Oncology: Subj Interval history: Ms. Zacarias is currently intubated and sedated after undergoing her second surgical debridement today. Per nursing, she targeted procedure well. Review of the record reveals her cultures remained sterile. Her white cell count continues to decrease. - Constitutional Vitals: Vital Signs Temp Pulse Resp BP Pulse Ox 05/06/17 17:06 97.8 F 05/06/17 17:00 60 12 106/56 99 05/06/17 16:18 58 12 105/54 100 05/06/17 16:01 12 94 05/06/17 15:00 60 12 106/56 100 05/06/17 14:00 61 12 113/57 99 05/06/17 13:51 19 98 05/06/17 13:30 63 12 118/60 97 05/06/17 13:00 62 05/06/17 12:30 97.5 F L 67 14 120/60 98 05/06/17 10:00 64 18 78/51 97 05/06/17 09:25 21 95 05/06/17 09:00 63 20 79/52 93 05/06/17 08:30 64 14 78/51 97 05/06/17 07:36 97.9 F 05/06/17 07:30 63 14 80/51 97 05/06/17 07:21 14 97 05/06/17 06:00 76 24 95/73 97 05/06/17 05:23 14 82/53 96 05/06/17 05:00 66 14 82/53 95 05/06/17 04:36 98.4 F 05/06/17 04:00 63 15 86/54 95 05/06/17 03:49 14 80/52 95 05/06/17 03:00 63 13 80/50 95 05/06/17 02:00 74 14 91/64 95 05/06/17 01:10 12 95 05/06/17 01:00 68 14 82/54 95 05/06/17 00:00 65 12 87/53 96 05/05/17 23:41 12 91/61 95 05/05/17 23:30 72 12 91/61 94 05/05/17 23:00 80 17 102/70 99 05/05/17 22:50 75 05/05/17 22:45 75 16 97/69 98 05/05/17 22:39 15 100 05/05/17 22:38 78 12 100/71 100 05/05/17 22:15 97.9 F 79 12 84/55 99 Intake and Output 05/06/17 05/06/17 05/07/17 08:59 16:59 00:59 Intake Total 1450 / 1450 2311 / 2311 250 / 250 Output Total 525 / 525 100 / 100 Balance 925 / 925 2211 / 2211 250 / 250 Intake: IV Fluids 1450 / 1450 2311 / 2311 250 / 250 0.9 % Sodium Chloride 1,000 ML 1000 / 1000 @ 3750 mls/hr IVC .Q16M [facility] Rx# :[id number] D5% & Lact. Ringers 1000 Ml Bag 1000 / 1000 1,000 ML @ 125 mls/hr IVC .Q8H [facility] Rx#:[id number] FentaNYL (PF) 1,000 MCG In 0.9 100 / 100 % Sodium Chloride 80 ML @ 25 MCG/HR 2.5 mls/hr IVC CONT [facility] Rx#:[id number] Versed 50 MG In 0.9 % Sodium 100 / 100 83 / 83 Chloride 90 ML @ 2 MG/HR 4 mls/ hr IVC CONT [facility] Rx#:[id number] Diprivan 1,000 mg In 100 ml @ 5 43 / 43 MCG/KG/MIN 1.734 mls/hr IVC . Q24H [facility] Rx#:[id number] Cleocin Premix 600 MG/50 ML 600 35 / 35 mg In 50 ml @ 50 mls/hr IVPB Q8H [facility] Rx#:[id number] Zyvox Premix 600mg/300mL 600 mg 300 / 300 In 300 ml @ 150 mls/hr IVPB Q12HR [facility] Rx#:[id number] Zosyn 3.375 GM In Dextrose 5% ( 50 / 50 50 / 50 ADD-[place]) 50 ML @ 12.5 mls/ hr IVPB Q8H [facility] Rx#:[id number] Vancocin 750 MG In Dextrose 5% 250 / 250 250 ML @ 250 mls/hr IVPB Q12H [facility] Rx#:[id number] Oral 0 / 0 Output: Estimated Blood Loss 100 / 100 Catheter 525 / 525 Other: Blood Glucose* 120 General appearance: no acute distress - Head Head exam: Present: atraumatic, normal inspection, normocephalic - Eye Eye exam: Present: conjuntiva pink, sclera anicteric - ENT ENT exam: Present: mucous membranes moist, normal exam - Neck Neck exam: Present: full ROM, normal inspection - Respiratory Respiratory exam: Present: rhonchi - Cardiovascular Cardiovascular exam: Present: RRR - GI/Abdominal GI/Abdominal exam: Present: hypoactive bowel sounds, soft - Extremities Exam Extremities exam: Present: normal inspection Oncology: Obj Data - Labs CBC & Chem 7: 05/06/17 05:57 05/06/17 05:57 Labs: Laboratory Results - last 24 hr 05/05/17 05/05/17 05/05/17 22:12 23:11 23:11 WBC 26.5 H RBC 3.56 L Hgb 10.6 L Hct 31.6 L MCV 88.8 MCH 29.8 MCHC 33.5 RDW 14.0 Plt Count 226 MPV 10.7 Immature Gran % 0.9 Seg Neutrophils % 93.5 Lymphocytes % 1.5 Monocytes % 3.9 Eosinophils % 0.0 Basophils % 0.2 Neutrophils # 24.8 H Lymphocytes # 0.4 L Monocytes # 1.0 Eosinophils # 0.0 Basophils # 0.1 Toxic Granulation Present A ABG pH ABG pCO2 ABG pO2 ABG HCO3 ABG Total CO2 ABG O2 Saturation ABG Base Excess Thomas Test Respiration Rate O2 Delivery Device Blood Gas Modality Inspired O2 Tidal Volume PEEP Sodium 132 L Potassium 3.9 Chloride 103 Carbon Dioxide 22 BUN 16 Creatinine 0.69 Est GFR ( Amer) > 60 Est GFR (Non-Af Amer) > 60 BUN/Creatinine Ratio 23 Glucose 119 H POC Glucose 129 H Calculated Osmolality 276 L Lactic Acid Calcium 8.6 Phosphorus 2.8 Magnesium 1.6 Total Bilirubin 0.4 AST 15 ALT 28 Alkaline Phosphatase 145 H Serum Total Protein 5.4 L Albumin 2.0 L Globulin 3.4 Albumin/Globulin Ratio 0.6 L 05/05/17 05/06/17 05/06/17 23:11 05:05 05:57 WBC 22.2 H RBC 3.19 L Hgb 9.4 L Hct 28.0 L MCV 87.8 MCH 29.5 MCHC 33.6 RDW 14.1 Plt Count 219 MPV 10.8 Immature Gran % 0.7 Seg Neutrophils % 92.8 Lymphocytes % 2.6 Monocytes % 3.8 Eosinophils % 0.0 Basophils % 0.1 Neutrophils # 20.6 H Lymphocytes # 0.6 Monocytes # 0.8 Eosinophils # 0.0 Basophils # 0.0 Toxic Granulation ABG pH 7.41 ABG pCO2 38 ABG pO2 82 L ABG HCO3 24 ABG Total CO2 25 ABG O2 Saturation 96 ABG Base Excess -1 Thomas Test N/A Respiration Rate 12 O2 Delivery Device Adult Vent Blood Gas Modality VC Inspired O2 30.0 Tidal Volume 500 PEEP 5 Sodium Potassium Chloride Carbon Dioxide BUN Creatinine Est GFR ( Amer) Est GFR (Non-Af Amer) BUN/Creatinine Ratio Glucose POC Glucose Calculated Osmolality Lactic Acid 0.9 Calcium Phosphorus Magnesium Total Bilirubin AST ALT Alkaline Phosphatase Serum Total Protein Albumin Globulin Albumin/Globulin Ratio 05/06/17 05/06/17 05:57 05:57 WBC RBC Hgb Hct MCV MCH MCHC RDW Plt Count MPV Immature Gran % Seg Neutrophils % Lymphocytes % Monocytes % Eosinophils % Basophils % Neutrophils # Lymphocytes # Monocytes # Eosinophils # Basophils # Toxic Granulation ABG pH ABG pCO2 ABG pO2 ABG HCO3 ABG Total CO2 ABG O2 Saturation ABG Base Excess Thomas Test Respiration Rate O2 Delivery Device Blood Gas Modality Inspired O2 Tidal Volume PEEP Sodium 134 L Potassium 4.2 Chloride 105 Carbon Dioxide 23 BUN 14 Creatinine 0.65 Est GFR ( Amer) > 60 Est GFR (Non-Af Amer) > 60 BUN/Creatinine Ratio 22 Glucose 203 H POC Glucose Calculated Osmolality 284 Lactic Acid 1.0 Calcium 8.4 L Phosphorus 3.0 Magnesium 1.8 Total Bilirubin 0.4 AST 9 ALT 21 Alkaline Phosphatase 121 Serum Total Protein 4.9 L Albumin 1.8 L Globulin 3.1 Albumin/Globulin Ratio 0.6 L - Impressions Impressions Chest X-Ray 05/05/17 22:44 IMPRESSION: The endotracheal and nasogastric tubes are in good position. The lungs are clear. D/ / Nader De La Paz MD / Nader De La Paz MD Interpreting Provider: Nader De La Paz MD X-Ray 05/05/17 22:44 IMPRESSION: 1. The orogastric tube tip is located near the gastric antrum. 2. Hepatomegaly. D/ / Tarik Muñoz MD / Tarik Muñoz MD Interpreting Provider: Tarik Muñoz MD Chest X-Ray 05/06/17 12:45 IMPRESSION: 1. Interval placement of a right subclavian central venous catheter. The tip terminates at the cavoatrial junction. 2. Endotracheal tube and nasogastric tube stable. 3. Mild perihilar vascular congestion without overt failure. D/ / 05/06/2017 13:39:18 Sid[facility] Green MD [facility] Inter[facility]ting Provider: Sidra Green MD - ABG Interpretation ABG results: ABG ABG pH 7.41 pH Units (7.32-7.45) 05/06/17 05:05 ABG pCO2 38 mmHg (35-45) 05/06/17 05:05 ABG pO2 82 mmHg (85-104) L 05/06/17 05:05 ABG O2 Saturation 96 % (95-98) 05/06/17 05:05 Consult Discharge Plan - Plan Referrals: NONE,PCP [Primary Care Provider] -
[2017-05-06] MEDS: Insulin LISPRO 300 UNITS/3 ML VIAL SQ SCH (18:33)
[2017-05-06] MEDS: Dexmedetomidine HCl 400 MCG/100 ML MLS IVC SCH (19:12)
[2017-05-06] MEDS: Chlorhexidine Rinse 15 ML MOUTHWASH MM SCH (20:31)
[2017-05-07] MEDS: Insulin LISPRO 300 UNITS/3 ML VIAL SQ SCH ×4 (00:44→17:50)
[2017-05-07] MEDS: Lacri-Lube 3.5 GM TUBE BOTH EYES SCH ×4 (00:45→13:13)
[2017-05-07] MEDS: Vancomycin 750 MG in D5% in Water 250 ML IVPB SCH (02:52)
[2017-05-07] MEDS: Piperacillin/Tazobactam 3.375 GM in D5% in Water 50 ML IVPB SCH ×2 (02:54→11:54)
[2017-05-07] MEDS ORDERED: 0.9 % Sodium Chloride 1,000 ML IVC ONE (02:58)
[2017-05-07 04:06] LABS: ABG Base Excess 1 mEq/L (-2 to 3); ABG HCO3 25 mEq/L (21-27); ABG Oxygen Saturation 98 % (95-98); ABG PCO2 41 mmHg (35-45); ABG PO2 104 mmHg (85-104); ABG TCO2 27 mEq/L (20-26); Blood Gas Modality PRVC; Blood Gas PEEP 5 cm H2O; Blood Gas Respiration Rate 12; Blood Gas VT 500 cc
[2017-05-07 04:17] LABS: Basophils % 0.1 %; Eosinophils % 0.1 %; Immature Granulocytes % 0.9 % (0-4); Lymphocytes # 1.6 K/mcL (0.6-4.6); Lymphocytes % 9.7 %; Mean Corpuscular HGB Conc 33.3 g/dL (31.6-35.5); Mean Corpuscular Hemoglobin 29.6 pg (28.0-33.3); Mean Corpuscular Volume 88.9 fL (83.0-100.0); Monocytes # 0.9 K/mcL (0.0-1.3); Monocytes % 5.2 %; Neutrophils # 13.9 K/mcL (1.6-8.9); Platelet Count 214 K/mcL (140-400); Red Cell Distribution Width 14.6 % (11.5-14.5)
[2017-05-07 04:23] LABS: INR 1.1; Prothrombin Time 12.3 Seconds (9.4-12.1)
[2017-05-07] MEDS: D5% in Lactated Ringers 1,000 ML IVC SCH ×2 (04:38→13:13)
[2017-05-07 04:40] LABS: BUN/Creatinine Ratio 18 (6-26); Blood Urea Nitrogen 10 mg/dL (7-20); Calcium 8.1 mg/dL (8.6-10.8); Carbon Dioxide 25 mEq/L (19-29); Chloride 108 mEq/L (98-109); Glucose 165 mg/dL (70-99); Magnesium 1.8 mg/dL (1.6-2.6); Osmolality,Calculated 287 (280-300); Potassium 3.5 mEq/L (3.5-4.5); Sodium 137 mEq/L (136-145); eGFR For African Americans > 60 (> 60); eGFR For Non-African Americans > 60 (> 60)
[2017-05-07] MEDS ORDERED: *HR* Enoxaparin 40 MG/0.4 ML SYRINGE SQ SCH (06:00)
[2017-05-07] MEDS: Clindamycin 600 MG/50 ML 600 MG/50 ML IV.SOLN IVPB SCH ×3 (06:13→20:45)
[2017-05-07] MEDS ORDERED: Pantoprazole 40 MG VIAL IVP SCH (06:30)
[2017-05-07] MEDS ORDERED: Potassium Phosphate 44 MEQ in 0.9 % Sodium Chloride 250 ML IVPB PRN ×2 (06:35→13:29)
[2017-05-07] MEDS ORDERED: *HR* Propofol 200 MG/20 ML VIAL IVP ONE (07:16)
[2017-05-07] MEDS ORDERED: *HR* Phenylephrine 10 MG/ML VIAL ONE (07:16)
--- NOTE | 2017-05-07 07:21 | Pulmonology Progress Note ---
<Maryann Willis M - Last Filed: 05/07/17 10:47> Date of Encounter: 05/07/17 Objective PUL Vital signs: Last Vital Signs Temp 97.7 F 05/07/17 09:10 Pulse 73 05/07/17 10:00 Resp 16 05/07/17 10:00 BP 119/57 05/07/17 10:00 Pulse Ox 97 05/07/17 10:00 Ventilator Settings Ventilator Settings: Ventilator Settings, Last 8 Hours Ventilator Mode VC+ Ventilator Mode VC+ Ventilator Mode VC+ Ventilator Mode VC+ Ventilator Mode VC+ Ventilator Mode VC+ Ventilator Mode VC+ Ventilator Mode VC+ Ventilator Mode VC+ Ventilator Mode VC+ Ventilator Tidal Volume 500 Setting Ventilator Tidal Volume 500 Setting Ventilator Tidal Volume 500 Setting Ventilator Tidal Volume 500 Setting Ventilator Tidal Volume 500 Setting Ventilator Tidal Volume 500 Setting Ventilator Tidal Volume 500 Setting Ventilator Tidal Volume 500 Setting Ventilator Tidal Volume 500 Setting Ventilator Tidal Volume 500 Setting Ventilator Respiratory Rate 12 Setting Ventilator Respiratory Rate 12 Setting Ventilator Respiratory Rate 12 Setting Ventilator Respiratory Rate 12 Setting Ventilator Respiratory Rate 12 Setting Ventilator Respiratory Rate 12 Setting Ventilator Respiratory Rate 12 Setting Ventilator Respiratory Rate 12 Setting Ventilator Respiratory Rate 12 Setting Ventilator Respiratory Rate 12 Setting Actual Respiratory Rate 20 Actual Respiratory Rate 14 Actual Respiratory Rate 14 Actual Respiratory Rate 15 Actual Respiratory Rate 13 Actual Respiratory Rate 13 Actual Respiratory Rate 15 Actual Respiratory Rate 16 Positive End Expiratory 5 Pressure Positive End Expiratory 5 Pressure Positive End Expiratory 5 Pressure Positive End Expiratory 5 Pressure Positive End Expiratory 5 Pressure Positive End Expiratory 5 Pressure Positive End Expiratory 5 Pressure Positive End Expiratory 5 Pressure Positive End Expiratory 5 Pressure Positive End Expiratory 5 Pressure Peak Inspiratory Airway 20 Pressure Peak Inspiratory Airway 19 Pressure Peak Inspiratory Airway 20 Pressure Peak Inspiratory Airway 22 Pressure Peak Inspiratory Airway 22 Pressure Peak Inspiratory Airway 22 Pressure Peak Inspiratory Airway 21 Pressure Results - Laboratory Findings CBC and BMP: 05/07/17 04:00 05/07/17 04:00 ABG ABG pH 7.40 pH Units (7.32-7.45) 05/07/17 04:02 ABG pCO2 41 mmHg (35-45) 05/07/17 04:02 ABG pO2 104 mmHg (85-104) 05/07/17 04:02 ABG O2 Saturation 98 % (95-98) 05/07/17 04:02 PT/INR, D-dimer PT 12.3 Seconds (9.4-12.1) H 05/07/17 04:00 Abnormal lab findings: Abnormal lab results WBC 16.5 K/mcL (4.3-11.1) H 05/07/17 04:00 RBC 2.70 M/mcL (3.82-4.97) L 05/07/17 04:00 Hgb 8.0 g/dL (11.5-15.4) L 05/07/17 04:00 Hct 24.0 % (35.3-44.9) L 05/07/17 04:00 RDW 14.6 % (11.5-14.5) H 05/07/17 04:00 Band Neutrophils % 14.0 % (0-4) H 05/04/17 21:13 Metamyelocytes % 2.0 % (0) H 05/04/17 21:13 Neutrophils # 13.9 K/mcL (1.6-8.9) H 05/07/17 04:00 Toxic Granulation Present (Not Present) A 05/05/17 23:11 Emilee Cells 1+ (Not Present) A 05/05/17 08:57 ESR 118 mm/hr (0-15) H 05/04/17 21:13 PT 12.3 Seconds (9.4-12.1) H 05/07/17 04:00 ABG Total CO2 27 mEq/L (20-26) H 05/07/17 04:02 Glucose 165 mg/dL (70-99) H 05/07/17 04:00 POC Glucose 142 (58-89) H 05/06/17 23:46 Calcium 8.1 mg/dL (8.6-10.8) L 05/07/17 04:00 Phosphorus 2.0 mg/dL (2.3-4.7) L 05/07/17 04:00 C-Reactive Protein 365 mg/L (Less than 5) H 05/04/17 21:13 Serum Total Protein 4.9 g/dL (6.0-8.3) L 05/06/17 05:57 Albumin 1.8 g/dL (3.5-5.0) L 05/06/17 05:57 Albumin/Globulin Ratio 0.6 (1.1-2.2) L 05/06/17 05:57 - Microbiology Findings Microbiology Findings: Microbiology, Last 48 Hours 05/05/17 22:58 Wound Culture - Preliminary Buttock No growth. 05/05/17 22:58 Surgical Biopsy Culture - Preliminary Buttock - Clinical Findings Intake & Output: Intake & Output 05/06/17 05/07/17 05/07/17 23:59 07:59 15:59 Intake Total 647 / 647 2460 / 2460 Output Total 550 / 550 1050 / 1050 104 / 104 Balance 97 / 97 1410 / 1410 -104 / -104 Weight 64.1 kg Consult Discharge Plan - Plan Referrals: NONE,PCP [Primary Care Provider] - - Attending Attestation I examined this patient and my medical decision-making was reviewed with the Resident Physician. I agree with the documented findings, disposition and treatment plan as described except to the extent set forth below. Patient seen and examined. Labs, radiology, chart personally reviewed. 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 Patient was successfully extubated. Cardiovascular: stable GI: Nutrition per dietary and GI prophylaxis per routine Heme: DVT prophylaxis per routine. Follow-up on oncology and pathology results. ID: Continue antibiotics and plan to de-escalation. Follow-up on cultures Renal; urine out put and renal funtion reviewed Endorcine: blood glucose is monitored Lines: all lines checked and no evidence of infections Skin: skin care to prevent pressure ulcers per nursing routine care Continue monitoring can ICU. 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 - cont IV abx with zosyn and zyvox - IVF -cont mcgowan catheter to monitor UOP and also will faciliate keeping gluteal cleft area dry (2) Endotracheally intubated Current Visit: Yes Status: Resolved Status: Resolved. Pt sucessfully extubated this AM s/p excisional debridement for Mari's Gangrene. Anasthesia attending at bedside, reviewed vent settings prior to extubation. Pt currently SpO2 99%. Incentive spirometry while pt awake. (3) Fracture of femur Current Visit: Yes Status: Acute 04/2017 CT of femur impression: agressive multifocal lytic lesions of the proximal right femur involving the femoral neck, intertrochanteric femur, and proximal diaphysis compatible with neoplastic disease such as metastasis or myeloma. Heme/Onc and Ortho on consult, with Paraproteinemia workup is pending. Per Heme/Onc, if workup is negative, pt may require biopsy. Ortho recommends plan to hold any definitive surgery for the right femur. Appreciate recs. Qualifiers: Encounter type: initial encounter Femur location: intertrochanteric Fracture type: closed Fracture alignment: nondisplaced Laterality: right Qualified Code(s): S72.144A - Nondisplaced intertrochanteric fracture of right femur, initial encounter for closed fracture (4) Abscess, gluteal, left Current Visit: Yes Status: Acute 05/04/17 CT demonstrated partially visualized soft tissue gas and fat stranding in the inferomedial left gluteal region and ischiorectal fossa. Surgery on consult. (5) Tobacco abuse Current Visit: Yes Status: Chronic Continue nicotine patch (6) Mechanical deep vein thrombosis (DVT) prophylaxis in place Current Visit: Yes Status: Acute Continue lovenox Subjective Principal diagnosis: Mari's gangrene Interval history: Resident seen and examined this pt in AM, prior to and following debridement. Pt was extubated, and talkative and making jokes within 1-2 minutes following extubation. Objective PUL Vital signs: Last Vital Signs Temp 97.6 F 05/07/17 04:32 Pulse 70 05/07/17 06:00 Resp 15 05/07/17 06:00 BP 115/54 05/07/17 06:00 Pulse Ox 100 05/07/17 06:00 General appearance: no acute distress Eyes: nonicteric Effort: other Auscultation: bilateral: clear Cardiovascular: regular rate and rhythm Gastrointestinal: normoactive bowel sounds, soft, non-tender Extremities: no cyanosis pupils equal and round Ventilator Settings Ventilator Settings: Ventilator Settings, Last 8 Hours Ventilator Mode VC+ Ventilator Mode VC+ Ventilator Mode VC+ Ventilator Mode VC+ Ventilator Mode VC+ Ventilator Mode VC+ Ventilator Mode VC+ Ventilator Mode VC+ Ventilator Mode VC+ Ventilator Mode VC+ Ventilator Mode VC+ Ventilator Tidal Volume 500 Setting Ventilator Tidal Volume 500 Setting Ventilator Tidal Volume 500 Setting Ventilator Tidal Volume 500 Setting Ventilator Tidal Volume 500 Setting Ventilator Tidal Volume 500 Setting Ventilator Tidal Volume 500 Setting Ventilator Tidal Volume 500 Setting Ventilator Tidal Volume 500 Setting Ventilator Tidal Volume 500 Setting Ventilator Tidal Volume 500 Setting Ventilator Respiratory Rate 12 Setting Ventilator Respiratory Rate 12 Setting Ventilator Respiratory Rate 12 Setting Ventilator Respiratory Rate 12 Setting Ventilator Respiratory Rate 12 Setting Ventilator Respiratory Rate 12 Setting Ventilator Respiratory Rate 12 Setting Ventilator Respiratory Rate 12 Setting Ventilator Respiratory Rate 12 Setting Ventilator Respiratory Rate 12 Setting Ventilator Respiratory Rate 12 Setting Actual Respiratory Rate 15 Actual Respiratory Rate 13 Actual Respiratory Rate 13 Actual Respiratory Rate 15 Actual Respiratory Rate 16 Actual Respiratory Rate 15 Actual Respiratory Rate 12 Actual Respiratory Rate 12 Actual Respiratory Rate 12 Positive End Expiratory 5 Pressure Positive End Expiratory 5 Pressure Positive End Expiratory 5 Pressure Positive End Expiratory 5 Pressure Positive End Expiratory 5 Pressure Positive End Expiratory 5 Pressure Positive End Expiratory 5 Pressure Positive End Expiratory 5 Pressure Positive End Expiratory 5 Pressure Positive End Expiratory 5 Pressure Positive End Expiratory 5 Pressure Peak Inspiratory Airway 20 Pressure Peak Inspiratory Airway 22 Pressure Peak Inspiratory Airway 22 Pressure Peak Inspiratory Airway 22 Pressure Peak Inspiratory Airway 21 Pressure Peak Inspiratory Airway 22 Pressure Peak Inspiratory Airway 24 Pressure Peak Inspiratory Airway 24 Pressure Peak Inspiratory Airway 27 Pressure Results - Laboratory Findings CBC and BMP: 05/07/17 04:00 05/07/17 04:00 ABG ABG pH 7.40 pH Units (7.32-7.45) 05/07/17 04:02 ABG pCO2 41 mmHg (35-45) 05/07/17 04:02 ABG pO2 104 mmHg (85-104) 05/07/17 04:02 ABG O2 Saturation 98 % (95-98) 05/07/17 04:02 PT/INR, D-dimer PT 12.3 Seconds (9.4-12.1) H 05/07/17 04:00 Abnormal lab findings: Abnormal lab results WBC 16.5 K/mcL (4.3-11.1) H 05/07/17 04:00 RBC 2.70 M/mcL (3.82-4.97) L 05/07/17 04:00 Hgb 8.0 g/dL (11.5-15.4) L 05/07/17 04:00 Hct 24.0 % (35.3-44.9) L 05/07/17 04:00 RDW 14.6 % (11.5-14.5) H 05/07/17 04:00 Band Neutrophils % 14.0 % (0-4) H 05/04/17 21:13 Metamyelocytes % 2.0 % (0) H 05/04/17 21:13 Neutrophils # 13.9 K/mcL (1.6-8.9) H 05/07/17 04:00 Toxic Granulation Present (Not Present) A 05/05/17 23:11 Emilee Cells 1+ (Not Present) A 05/05/17 08:57 ESR 118 mm/hr (0-15) H 05/04/17 21:13 PT 12.3 Seconds (9.4-12.1) H 05/07/17 04:00 ABG Total CO2 27 mEq/L (20-26) H 05/07/17 04:02 Glucose 165 mg/dL (70-99) H 05/07/17 04:00 POC Glucose 142 (58-89) H 05/06/17 23:46 Calcium 8.1 mg/dL (8.6-10.8) L 05/07/17 04:00 Phosphorus 2.0 mg/dL (2.3-4.7) L 05/07/17 04:00 C-Reactive Protein 365 mg/L (Less than 5) H 05/04/17 21:13 Serum Total Protein 4.9 g/dL (6.0-8.3) L 05/06/17 05:57 Albumin 1.8 g/dL (3.5-5.0) L 05/06/17 05:57 Albumin/Globulin Ratio 0.6 (1.1-2.2) L 05/06/17 05:57 - Microbiology Findings Microbiology Findings: Microbiology, Last 48 Hours 05/05/17 22:58 Wound Culture - Preliminary Buttock No growth. 05/05/17 22:58 Surgical Biopsy Culture - Preliminary Buttock - Clinical Findings Intake & Output: Intake & Output 05/06/17 05/06/17 05/07/17 15:59 23:59 07:59 Intake Total 2233 / 2233 647 / 647 2360 / 2360 Output Total 100 / 100 550 / 550 800 / 800 Balance 2133 / 2133 97 / 97 1560 / 1560 Weight 64.1 kg - VTE Documentation of Mechanical Device: Intermittent pneumatic compression device
--- NOTE | 2017-05-07 07:28 | Anesthesia Evaluation PreOp ---
Date of Encounter: 05/07/17 Time of Encounter: 07:26 - Past History Planned Operation: I & D Gluteal Abscess Cardiac History: Arrhythmia (sinus tachycardia) Pulmonary History: Smoker [employer]ST[employer]ER History: Other (anxiety) Other Medical History: Other (pathologic femur fracture) Anesthesia History: No Prior Anesthetic Complications, Past Anesthesia Alcohol Use: none Drug use: marijuana Medications and Allergies No Known Home Drugs 05/05/17 [History] 3 Allergy/AdvReac Type Severity Reaction Status Date / Time No Known Allergies Allergy Verified 05/04/17 18:30 - Meds/Allergy Pre-op Review Medications Reviewed: Yes Allergies Reviewed: Yes Beta Blockers on Current Med List: No Anesthesia Results - Labs 05/07/17 04:00 05/07/17 04:00 - Imaging EKG: report reviewed (05/04/2017 SINUS TACHYCARDIA) Anesthesia Exam Vital Signs/O2 Sat/Glucose, Most Recent Temp Pulse Resp BP Pulse Ox 97.6 F 70 15 115/54 100 05/07/17 04:32 05/07/17 06:00 05/07/17 06:00 05/07/17 06:00 05/07/17 06:00 Blood Glucose* 142 Height: 5'3''/1.6 m Weight: 141 lbs/64.1 kg NPO (# of Hours): 8 - HEENT Mallampati: Intubated - [employer] LOC: Oriented - Cardiac Rhythm: Regular Murmur: None - Pulmonary Breath Sounds: bilateral Clear Respiratory Effort: Symmetrical Anesthesia Assess/Plan ASA Score: 3 Modified Viviane Scale for Level of Consciousness: Cooperative, oriented, and tranquil Anesthetic Plan: General Monitoring Plan: Standard Monitors, A-Line (in situ) Recovery Plan: ICU
[2017-05-07] MEDS ORDERED: *HR* Morphine 10 MG/ML VIAL ONE (08:45)
[2017-05-07 08:51] LABS: Hemoglobin A1C 5.2 %
--- NOTE | 2017-05-07 08:54 | Operative Note ---
Date of procedure: 05/07/17 Pre-op diagnosis: mari's gangrene Post-op diagnosis: same Procedure: excisional debridement, washout Implants: kerlix guaze soaked in dakin's Complications: none Anesthesia: GURWINDERA Surgeon: Álvaro Wang Director Of Collections And Archives: Sandy Hernandez Estimated blood loss (cc): 2 Condition: stable Disposition: ICU Procedure in Detail: The patient was brought into the operating room suite. Mechanical DVT prophylaxis was placed. She underwent smooth induction of anesthesia. She was placed in the prone position. Prepped and draped in the usual fashion. Preoperative antibiotics were given. A time out was held identifying correct patient, pathology, procedure, and physician. I removed the kerlix that was already packed. I removed the three rolls that were placed. Using the scissors, necrotic tissue from within the cavity. There was bleeding noted after excision. I used my finger followed by the debakey to get an idea of the size of the cavity. It still tracked about 17cm. I then focused on the tract to the right glute. It measures about 7.5cm. The counter incision was clean, dry, intact. I then irrigated with 3L of saline infused with 1g of vancomycin. I then took three kerlix rolls soaked in dakin's solution and packed the cavity. I used skin yuri to reapproximate the skin. I then ended the procedure with plans for another look in two days. The patient tolerated the procedure and escorted to ICU in stable condition. The size of the cavity as the end of the case was 17cm x 6cm x 12cm; the track to the right side is ~ 7.5cm in length
--- NOTE | 2017-05-07 08:56 | General Surgery Progress Note ---
Date of Encounter: 05/07/17 Time of Encounter: 08:54 - Assessment and Plan (1) Mrai's gangrene in female Current Visit: Yes Status: Acute 56F with mari's gangrene POD #2 s/p excisional debridement, POD #1 s/p takeback with additional exicisional debridement. - cont IV abx with zosyn and zyvox - IVF - OR today for 2nd look and further excisional debridement - plan for extubation today with return to OR on 05/09 (2) Sepsis Current Visit: Yes Status: Acute 2/2 mari's gangrene; improved UOP, BP; no pressors; sepsis is resolving - cont abx regimen - follow up cultures - bolus PRN - MAPs 60 or greater -cont mcgowan catheter to monitor UOP in light of septic state - pressors if unresponsive to fluids; per ICU protocol - cont fent/versed; sedation per ICU - cont dvt prophylaxis Qualifiers: Sepsis type: sepsis due to unspecified organism Qualified Code(s): A41.9 - Sepsis, unspecified organism Subjective Patient reports: no new complaints Objective Vital Signs - Last 8 Hours Temp Pulse Resp BP Pulse Ox 05/07/17 07:42 18 100 05/07/17 07:33 97.9 F 05/07/17 07:30 65 14 101/58 99 05/07/17 06:00 70 15 115/54 100 05/07/17 05:35 13 117/58 100 05/07/17 05:00 68 15 117/58 100 05/07/17 04:32 97.6 F 05/07/17 04:00 68 17 111/54 100 05/07/17 03:20 15 110/59 100 05/07/17 03:00 59 15 107/58 100 05/07/17 02:00 52 15 89/49 100 05/07/17 01:23 12 98/48 100 05/07/17 01:00 54 14 84/48 100 Intake and Output 05/06/17 05/07/17 05/07/17 23:59 07:59 15:59 Intake Total 647 / 647 2460 / 2460 Output Total 550 / 550 1050 / 1050 Balance 97 / 97 1410 / 1410 Intake: IV Fluids 647 / 647 2460 / 2460 0.9 % Sodium Chloride 1,000 ML 1000 / 1000 @ 3750 mls/hr IVC .Q16M [facility] Rx# :[id number] D5% & Lact. Ringers 1000 Ml Bag 1000 / 1000 1,000 ML @ 125 mls/hr IVC .Q8H [facility] Rx#:[id number] FentaNYL (PF) 3,000 MCG In 0.9 125 / 125 % Sodium Chloride 240 ML @ 25 MCG/HR 2.5 mls/hr IVC CONT [facility] Rx#:[id number] Diprivan 1,000 mg In 100 ml @ 5 137 / 137 70 / 70 MCG/KG/MIN 1.734 mls/hr IVC . Q24H [facility] Rx#:[id number] Cleocin Premix 600 MG/50 ML 600 85 / 85 50 / 50 mg In 50 ml @ 50 mls/hr IVPB Q8H [facility] Rx#:[id number] Zosyn 3.375 GM In Dextrose 5% ( 50 / 50 50 / 50 ADD-[place]) 50 ML @ 12.5 mls/ hr IVPB Q8H [facility] Rx#:[id number] Vancocin 750 MG In Dextrose 5% 250 / 250 250 / 250 250 ML @ 250 mls/hr IVPB Q12H [facility] Rx#:[id number] Output: Estimated Blood Loss 100 / 100 Catheter 450 / 450 1050 / 1050 Other: Weight 64.1 kg Blood Glucose* 142 Patient Weight 05/07/17 23:59 Weight 64.1 kg - General physical appearance well developed - Eyes pinpoint pupil - ENT normocephalic - Respiratory normal expansion, normal respiratory effort - Cardiovascular Cardiovascular exam: Present: RRR - Incision Incision: Present: clean and dry, intact, open (packed; will evalute in OR) - Labs 05/07/17 04:00 05/07/17 04:00 Diabetes panel 05/07/17 05/07/17 Range/Units 04:00 04:00 Sodium 137 (136-145) mEq/L Potassium 3.5 (3.5-4.5) mEq/L Chloride 108 (98-109) mEq/L Carbon Dioxide 25 (19-29) mEq/L BUN 10 (7-20) mg/dL Creatinine 0.57 (0.57-1.11) mg/dL Glucose 165 H (70-99) mg/dL Hemoglobin A1c 5.2 ( - 5.6) % Calcium 8.1 L (8.6-10.8) mg/dL Calcium panel 05/07/17 Range/Units 04:00 Calcium 8.1 L (8.6-10.8) mg/dL Phosphorus 2.0 L (2.3-4.7) mg/dL Pituitary panel 05/07/17 Range/Units 04:00 Sodium 137 (136-145) mEq/L Potassium 3.5 (3.5-4.5) mEq/L Chloride 108 (98-109) mEq/L Carbon Dioxide 25 (19-29) mEq/L BUN 10 (7-20) mg/dL Creatinine 0.57 (0.57-1.11) mg/dL Glucose 165 H (70-99) mg/dL Calcium 8.1 L (8.6-10.8) mg/dL Adrenal panel 05/07/17 Range/Units 04:00 Sodium 137 (136-145) mEq/L Potassium 3.5 (3.5-4.5) mEq/L Chloride 108 (98-109) mEq/L Carbon Dioxide 25 (19-29) mEq/L BUN 10 (7-20) mg/dL Creatinine 0.57 (0.57-1.11) mg/dL Glucose 165 H (70-99) mg/dL Calcium 8.1 L (8.6-10.8) mg/dL - VTE Documentation of Mechanical Device: Intermittent pneumatic compression device Consult Discharge Plan - Plan Referrals: NONE,PCP [Primary Care Provider] -
[2017-05-07] MEDS ORDERED: Nicotine 21 MG PATCH.TD24 TD SCH (09:00)
[2017-05-07] MEDS: Chlorhexidine Rinse 15 ML MOUTHWASH MM SCH (10:44)
[2017-05-07] MEDS: Potassium Chloride 40 MEQ/200 ML BAG IVPB PRN ×2 (11:18→12:17)
[2017-05-07] MEDS: FentaNYL (PF) 3,000 MCG in 0.9 % Sodium Chloride 240 ML IVC SCH ×2 (11:29→13:13)
[2017-05-07] MEDS: Dexmedetomidine HCl 400 MCG/100 ML MLS IVC SCH (13:12)
[2017-05-07] MEDS ORDERED: Naloxone 0.4 MG/ML INJ IVP PRN (13:29)
[2017-05-07] MEDS ORDERED: D5% in Water 1,000 ML IVC PRN (13:29)
[2017-05-07] MEDS ORDERED: Dextrose Gel 15 GM PO PRN ×2 (13:29)
[2017-05-07] MEDS ORDERED: *HR* Dextrose 50 % in Water (Syg) 50 ML SYRINGE IVP PRN (13:29)
[2017-05-07] MEDS ORDERED: Ondansetron 4 MG/2 ML VIAL IVP PRN (13:29)
[2017-05-07] MEDS ORDERED: D5% in 0.45% NACL w KCl 20 MEQ/1,000 ML MLS IVC SCH (13:29)
[2017-05-07] MEDS ORDERED: Potassium Chloride 40 MEQ/200 ML BAG IVPB PRN (13:29)
[2017-05-07] MEDS ORDERED: traMADol 50 MG TABLET PO PRN (13:29)
[2017-05-07] MEDS ORDERED: Vancomycin 750 MG in D5% in Water 250 ML IVPB SCH (14:00)
[2017-05-07] MEDS: *HR* HYDROcodone/Acet 7.5/325 mg TABLET PO PRN ×2 (14:09→22:22)
[2017-05-07 16:15] LABS: Alpha 2 Globulin (PEP) 1.23 g/dL (0.48-1.05); Alpha 2 Globulin (PEP) 1.25 g/dL (0.48-1.05); Beta Globulin (PEP) 0.53 g/dL (0.48-1.10); Beta Globulin (PEP) 0.55 g/dL (0.48-1.10)
[2017-05-07] MEDS: Gabapentin 100 MG CAPSULE PO SCH ×2 (17:49→20:44)
[2017-05-07] MEDS: Piperacillin/Tazobactam 3.375 GM in 0.9 % Sodium Chloride Mini Bag 100 ML IVPB SCH (18:41)
[2017-05-07] MEDS ORDERED: Gabapentin 400 MG CAPSULE PO SCH (21:00)
[2017-05-08] MEDS: Insulin LISPRO 300 UNITS/3 ML VIAL SQ SCH ×2 (00:19→06:15)
[2017-05-08] MEDS ORDERED: Vancomycin 1,000 MG in D5% in Water 250 ML IVPB SCH (03:00)
[2017-05-08] MEDS: Clindamycin 600 MG/50 ML 600 MG/50 ML IV.SOLN IVPB SCH ×2 (05:48→23:31)
[2017-05-08] MEDS ORDERED: *HR* Enoxaparin 40 MG/0.4 ML SYRINGE SQ SCH (06:00)
[2017-05-08] MEDS: Piperacillin/Tazobactam 3.375 GM in D5% in Water 50 ML IVPB SCH (06:04)
[2017-05-08] MEDS: Piperacillin/Tazobactam 3.375 GM in 0.9 % Sodium Chloride Mini Bag 100 ML IVPB SCH ×2 (06:05→20:31)
[2017-05-08] MEDS ORDERED: Pantoprazole 40 MG VIAL IVP SCH (06:30)
[2017-05-08 07:50] LABS: IFE Reflexed IFE Done; Immunoglobulin A 46 mg/dL (68-408); Immunoglobulin G 570 mg/dL (768-1632); Immunoglobulin M 24 mg/dL (35-263)
[2017-05-08 07:51] LABS: IFE Reflexed IFE Done; Immunoglobulin A 48 mg/dL (68-408); Immunoglobulin G 590 mg/dL (768-1632); Immunoglobulin M 25 mg/dL (35-263)
[2017-05-08] MEDS: Gabapentin 100 MG CAPSULE PO SCH ×2 (08:50→20:49)
[2017-05-08] MEDS ORDERED: Nicotine 21 MG PATCH.TD24 TD SCH (09:00)
--- NOTE | 2017-05-08 09:59 | Oncology Inp Progress Note ---
Date of Encounter: 05/08/17 Time of Encounter: 12:00 (1) Pathologic fracture of femur Current Visit: Yes Status: Acute Assessment and plan: Hx rt hip pain, mari's gangrene s/p excisional debridement, pathologic fracture and destructive infiltrative rt femur lesion, soft tissue component. Protein electrophoresis serum is without a monoclonal spike. WIll add serum light chains if not sent already, UPEP. CTA chest, abd wo other bone or metastatic lesions. SPEP/QIG pattern, very high CRP could be indicative of benign destructive process, will need bone biopsy to r/o malignancy after sepsis /infection treated. Cx gm negative rods, on antibiotics. I have reviewed lab results today with patient and discussed above plan ofcare. Qualifiers: Pathology associated with fracture: other disease Encounter type: initial encounter Laterality: right Qualified Code(s): M84.651A - Pathological fracture in other disease, right femur, initial encounter for fracture Oncology: Subj Interval history: Right hip pain, unable t move. s/p debridement-twice - Constitutional Vitals: Vital Signs Temp Pulse Resp BP Pulse Ox 05/08/17 08:05 98.3 F 81 16 98/57 91 05/08/17 03:11 98.2 F 79 18 112/63 94 05/07/17 23:18 98.6 F 70 18 96/52 93 05/07/17 19:45 99/62 05/07/17 18:53 98.1 F 80 18 93/59 94 05/07/17 14:00 82 18 96/59 95 05/07/17 13:30 77 16 92/58 96 05/07/17 12:00 97.8 F 85 14 94/60 95 05/07/17 11:00 90 18 117/54 98 05/07/17 10:00 73 16 119/57 97 Intake and Output 05/07/17 05/08/17 05/08/17 23:59 07:59 15:59 Intake Total 150 / 150 Output Total 300 / 300 900 / 900 Balance -300 / -300 -750 / -750 Intake: IV Fluids 150 / 150 Cleocin Premix 600 MG/50 ML 600 50 / 50 mg In 50 ml @ 50 mls/hr IVPB Q8H [facility] Rx#:[id number] Zosyn 3.375 GM In 0.9 % Sodium 100 / 100 Chloride (Mini-Bag +) 100 ML @ 25 mls/hr IVPB Q8H [facility] Rx#: [id number] Output: Catheter 300 / 300 900 / 900 Other: Weight 65.7 kg Patient Weight 05/08/17 23:59 Weight 65.7 kg General appearance: no acute distress - Head Head exam: Present: atraumatic, normal inspection - Eye Eye exam: Present: normal appearance, sclera anicteric - ENT ENT exam: Present: mucous membranes moist - Respiratory Respiratory exam: Present: CTAB - Cardiovascular Cardiovascular exam: Present: +S1, +S2 - Extremities Exam Extremities exam: Present: pedal edema Oncology: Obj Data - Labs CBC & Chem 7: 05/07/17 04:00 05/07/17 04:00 Labs: Laboratory Results - last 24 hr 05/05/17 05/05/17 05/07/17 04:43 04:43 11:48 POC Glucose 77 Prot Electrophor EER SEE NOTE SEE NOTE Total Protein (PEP) 5.40 L 5.30 L Albumin (PEP) 2.58 L 2.46 L Ukiio-7-Golnpthua 0.55 H 0.55 H Bcrvu-2-Lhhnotgzq 1.25 H 1.23 H Beta Globulins 0.53 0.55 Gamma Globulins 0.49 L 0.51 L PEP Interpretation SEE NOTE SEE NOTE Serum Immunofix Reflex MIRELLA Done MIRELLA Done Vancomycin Trough IgG 570 L 590 L IgA 46 L 48 L IgM 24 L 25 L 05/08/17 02:01 POC Glucose Prot Electrophor EER Total Protein (PEP) Albumin (PEP) Edins-5-Iqfapbdcm Yjrsv-0-Mbftntcdr Beta Globulins Gamma Globulins PEP Interpretation Serum Immunofix Reflex Vancomycin Trough 9.7 L IgG IgA IgM - ABG Interpretation ABG results: ABG ABG pH 7.40 pH Units (7.32-7.45) 05/07/17 04:02 ABG pCO2 41 mmHg (35-45) 05/07/17 04:02 ABG pO2 104 mmHg (85-104) 05/07/17 04:02 ABG O2 Saturation 98 % (95-98) 05/07/17 04:02 PT/INR, D-dimer PT 12.3 Seconds (9.4-12.1) H 05/07/17 04:00 Consult Discharge Plan - Plan Referrals: NONE,PCP [Primary Care Provider] -
--- NOTE | 2017-05-08 11:27 | Internal Med Progress Note ---
Date of Encounter: 05/08/17 Time of Encounter: 11:25 - Assessment and plan (1) Abscess, gluteal, left Current Visit: Yes Status: Acute Assessment and plan: Patient is a left gluteal abscess. Patient underwent surgery for the same. Patient is scheduled for surgery again today. Surgery will be around 1 PM. Plan: We will follow the recommendations from surgery. (2) Pathologic fracture of femur Current Visit: Yes Status: Acute Assessment and plan: The etiology for pathologic fracture of the femur is multifactorial at this time. 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 Chart reviewed. Noted that patient is scheduled for surgery today. Patient is not a very cheerful mood today. She denies any chest pain, shortness of breath, nausea, vomiting, abdominal pain , diarrhea or dizziness - Constitutional Vitals: Temp Pulse Resp BP Pulse Ox 98.3 F 81 16 98/57 91 05/08/17 08:05 05/08/17 08:05 05/08/17 08:05 05/08/17 08:05 05/08/17 08:05 General appearance: Present: A&O X 3, no acute distress - Head Head exam: Present: atraumatic, normocephalic - Eye Eye exam: Present: PERRL, conjuntiva pink, sclera anicteric Pupils: Present: PERRL - Neck Neck exam general surgery: Present: supple, trachea midline. Absent: lymphadenopathy - Respiratory Respiratory exam: Present: CTAB. Absent: accessory muscle use, rales, rhonchi, wheezes - Cardiovascular Cardiovascular exam: Present: RRR, +S1, +S2. Absent: diastolic murmur, gallop, rubs, systolic murmur - GI/Abdominal GI/Abdominal exam: Present: normal bowel sounds, soft, no peritoneal signs. Absent: distended, tenderness - Extremities Exam Extremities exam: Present: warm, radial pulses palpable and symmetrical. Absent : calf tenderness, cyanotic, pedal edema - Neurological Exam Neurological exam: Present: CN II-XII intact, oriented X3, no focal deficits. Absent: pronater drift, facial droop, speech deficit - Skin Skin exam: Present: dry, intact Internal Medicine: Result - Labs CBC & Chem 7: 05/07/17 04:00 05/07/17 04:00 - ABG Interpretation ABG results: ABG ABG pH 7.40 pH Units (7.32-7.45) 05/07/17 04:02 ABG pCO2 41 mmHg (35-45) 05/07/17 04:02 ABG pO2 104 mmHg (85-104) 05/07/17 04:02 ABG O2 Saturation 98 % (95-98) 05/07/17 04:02 PT/INR, D-dimer PT 12.3 Seconds (9.4-12.1) H 05/07/17 04:00 - VTE Documentation of Mechanical Device: Intermittent pneumatic compression device Consult Discharge Plan - Plan Referrals: NONE,PCP [Primary Care Provider] -
[2017-05-08 12:05] LABS: Hematocrit 28.2 % (35.3-44.9); Hemoglobin 9.3 g/dL (11.5-15.4); Mean Corpuscular Hemoglobin 29.1 pg (28.0-33.3); Mean Corpuscular Volume 88.1 fL (83.0-100.0); Mean Platelet Volume 9.8 fL (9.4-12.4); Platelet Count 339 K/mcL (140-400); Red Cell Distribution Width 14.5 % (11.5-14.5)
--- NOTE | 2017-05-08 12:31 | Anesthesia Evaluation PreOp ---
Date of Encounter: 05/08/17 Time of Encounter: 12:29 - Past History Planned Operation: Gluteal wound washout and debridment Cardiac History: Denies any Significant Hx Pulmonary History: Smoker SHEET HANGER History: Other (sepsis, mari's gangrene) Other Medical History: Denies Any Significant HX Anesthesia History: No Prior Anesthetic Complications, Past Anesthesia (I and D gluteal wound x2) Alcohol Use: none Drug use: marijuana Medications and Allergies No Known Home Drugs 05/05/17 [History] 3 Allergy/AdvReac Type Severity Reaction Status Date / Time No Known Allergies Allergy Verified 05/04/17 18:30 - Meds/Allergy Pre-op Review Medications Reviewed: Yes Allergies Reviewed: Yes Beta Blockers on Current Med List: No Anesthesia Results - Labs 05/07/17 04:00 05/07/17 04:00 - Imaging EKG: report reviewed (sinus tachycardia) Anesthesia Exam Vital Signs/O2 Sat, Most Current Temp Pulse Resp BP Pulse Ox 98.1 F 87 14 117/70 91 05/08/17 12:00 05/08/17 12:00 05/08/17 12:00 05/08/17 12:00 05/08/17 12:00 Height: 1.6m Weight: 65kg NPO (# of Hours): >8 - HEENT Pupil (Motor): Pupils equal, EOMI Mallampati: II Denture Type: Upper: Complete, Lower: Complete Oral Opening: Greater than 3 - SHEET HANGER LOC: Oriented SHEET HANGER Motor: Normal RUE, Normal LUE, Normal Face SHEET HANGER Sensory: Normal: RUE, LUE, RLE, LLE, Face - Cardiac Rhythm: Regular - Pulmonary Breath Sounds: bilateral Clear Respiratory Effort: Symmetrical Anesthesia Assess/Plan ASA Score: 3 (sepsis, forunier's gangrene, smoker) Modified Viviane Scale for Level of Consciousness: Cooperative, oriented, and tranquil Anesthetic Plan: General (r/b/a discussed, questions answered, consent obtained) Monitoring Plan: Standard Monitors Recovery Plan: PACU
[2017-05-08 12:32] LABS: BUN/Creatinine Ratio 8 (6-26); Carbon Dioxide 29 mEq/L (19-29); Chloride 108 mEq/L (98-109); Glucose 101 mg/dL (70-99); Osmolality,Calculated 287 (280-300); Phosphorous 3.6 mg/dL (2.3-4.7); Potassium 4.1 mEq/L (3.5-4.5); Sodium 140 mEq/L (136-145); eGFR For African Americans > 60 (> 60); eGFR For Non-African Americans > 60 (> 60)
[2017-05-08 12:33] LABS: Blood Urea Nitrogen 5 mg/dL (7-20)
[2017-05-08 12:40] LABS: Lymphocytes # 3.3 K/mcL (0.6-4.6); Monocytes # 0.8 K/mcL (0.0-1.3); Neutrophils # 7.7 K/mcL (1.6-8.9); Platelet Estimate Normal (Normal); Reactive Lymphocytes Present (Not Present)
[2017-05-08] MEDS ORDERED: *HR* Succinylcholine 200 MG/10 ML VIAL IVP ONE (13:24)
[2017-05-08] MEDS ORDERED: Ondansetron 4 MG/2 ML VIAL ONE (13:24)
[2017-05-08] MEDS ORDERED: Lidocaine -MPF 4% 5 ML AMPUL ONE (13:24)
[2017-05-08] MEDS ORDERED: Dexamethasone 4 MG/ML VIAL ONE (13:24)
[2017-05-08] MEDS ORDERED: Lidocaine -MPF 2% 2 ML VIAL ONE (13:24)
[2017-05-08] MEDS ORDERED: *HR* FentaNYL (PF) 100 MCG/2 ML VIAL ONE (13:25)
[2017-05-08] MEDS ORDERED: *HR* Propofol 200 MG/20 ML VIAL IVP ONE (13:25)
[2017-05-08] MEDS ORDERED: Vancomycin 1,000 MG VIAL ONE (13:30)
--- NOTE | 2017-05-08 13:47 | General Surgery Progress Note ---
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 Current Visit: Yes Status: Acute 56F with mari's gangrene POD #3 s/p excisional debridement, POD #2 s/p takeback with additional exicisional debridement, POD #1 s/p takeback with aditional excisional debridement and washout - cont IV abx with zosyn and zyvox - IVF - OR today for 3nd look and further excisional debridement and wound vac placement (2) Sepsis Current Visit: Yes Status: Acute 2/2 mari's gangrene; improved UOP, BP; no pressors; sepsis is resolving - cont abx regimen - follow up cultures - bolus PRN - MAPs 60 or greater -cont mcgowan catheter to monitor UOP in light of septic state - cont dvt prophylaxis Qualifiers: Sepsis type: sepsis due to unspecified organism Qualified Code(s): A41.9 - Sepsis, unspecified organism Subjective Patient reports: no new complaints, feels better Objective Vital Signs - Last 8 Hours Temp Pulse Resp BP Pulse Ox 05/08/17 12:00 98.1 F 87 14 117/70 91 05/08/17 08:05 98.3 F 81 16 98/57 91 Intake and Output 05/07/17 05/08/17 05/08/17 23:59 07:59 15:59 Intake Total 150 / 150 Output Total 300 / 300 900 / 900 1250 / 1250 Balance -300 / -300 -750 / -750 -1250 / -1250 Intake: IV Fluids 150 / 150 Cleocin Premix 600 MG/50 ML 600 50 / 50 mg In 50 ml @ 50 mls/hr IVPB Q8H [facility] Rx#:[id number] Zosyn 3.375 GM In 0.9 % Sodium 100 / 100 Chloride (Mini-Bag +) 100 ML @ 25 mls/hr IVPB Q8H [facility] Rx#: [id number] Output: Catheter 300 / 300 900 / 900 1250 / 1250 Other: Weight 65.7 kg Patient Weight 05/08/17 23:59 Weight 65.7 kg - General physical appearance well developed, well nourished - Respiratory normal expansion, normal respiratory effort - Cardiovascular Cardiovascular exam: Present: RRR - Incision Incision: Present: open (to be viewed in OR) - Labs 05/08/17 11:50 05/08/17 11:50 Diabetes panel 05/08/17 Range/Units 11:50 Sodium 140 (136-145) mEq/L Potassium 4.1 (3.5-4.5) mEq/L Chloride 108 (98-109) mEq/L Carbon Dioxide 29 (19-29) mEq/L BUN 5 L (7-20) mg/dL Creatinine 0.59 (0.57-1.11) mg/dL Glucose 101 H (70-99) mg/dL Calcium 8.0 L (8.6-10.8) mg/dL Calcium panel 05/08/17 Range/Units 11:50 Calcium 8.0 L (8.6-10.8) mg/dL Phosphorus 3.6 D (2.3-4.7) mg/dL Pituitary panel 05/08/17 Range/Units 11:50 Sodium 140 (136-145) mEq/L Potassium 4.1 (3.5-4.5) mEq/L Chloride 108 (98-109) mEq/L Carbon Dioxide 29 (19-29) mEq/L BUN 5 L (7-20) mg/dL Creatinine 0.59 (0.57-1.11) mg/dL Glucose 101 H (70-99) mg/dL Calcium 8.0 L (8.6-10.8) mg/dL Adrenal panel 05/08/17 Range/Units 11:50 Sodium 140 (136-145) mEq/L Potassium 4.1 (3.5-4.5) mEq/L Chloride 108 (98-109) mEq/L Carbon Dioxide 29 (19-29) mEq/L BUN 5 L (7-20) mg/dL Creatinine 0.59 (0.57-1.11) mg/dL Glucose 101 H (70-99) mg/dL Calcium 8.0 L (8.6-10.8) mg/dL - VTE Documentation of Mechanical Device: Intermittent pneumatic compression device Consult Discharge Plan - Plan Referrals: NONE,PCP [Primary Care Provider] -
[2017-05-08] MEDS ORDERED: *HR* Midazolam HCl 2 MG/2 ML VIAL ONE (13:58)
[2017-05-08] MEDS ORDERED: *HR* Promethazine 25 MG/ML VIAL IVP PRN (14:03)
[2017-05-08] MEDS ORDERED: Ondansetron 4 MG/2 ML VIAL IVP ONE (14:03)
--- NOTE | 2017-05-08 14:27 | Operative Note ---
Date of procedure: 05/08/17 Pre-op diagnosis: mari's gangrene Post-op diagnosis: same Procedure: wound washout, wound vac placement Implants: wound vac Complications: none Anesthesia: GURWINDERA Surgeon: Álvaro Wang Handling Tech: Sandy Hernandez Estimated blood loss (cc): 1 Condition: stable Disposition: PACU Procedure in Detail: he patient was brought into the operating room suite. Mechanical DVT prophylaxis was placed. She underwent smooth induction of anesthesia. She was placed in the prone position. Prepped and draped in the usual fashion. Preoperative antibiotics were given. A time out was held identifying correct patient, pathology, procedure, and physician. I removed the kerlix that was already packed. I removed the three rolls that were placed. There was no necrotic tissue to excise. I used my finger followed by the debakey to get an idea of the size of the cavity. It still tracked about 17cm. I then focused on the tract to the right glute. It still measures about 7.5cm. The counter incision was clean, dry, intact. I then irrigated with 3L of saline infused with 1g of vancomycin. I then placed the wound vac sponges. Three total: one in the deeper cavity, one that tracks to the right side, which was sutured to the piece in the deeper cavity. and one placed superficially. The wound vac was able to suction down appropriately. At this point I concluded the procedure. The patient tolerated the procedure and escorted to the PACU in stable condition. The size of the cavity as the end of the case was 17cm x 6cm x 12cm; the track to the right side is ~ 7.5cm in length
[2017-05-08] MEDS: *HR* HYDROmorphone (PF) 1 MG/ML SYRINGE IVP PRN ×2 (14:50→14:57)
--- NOTE | 2017-05-08 15:15 | Anesthesia Evaluation Post Op ---
Date of Encounter: 05/08/17 Time of Encounter: 15:14 - Vital Signs Vital Signs: Vital Signs/O2 Sat/Glucose, Most Current Temp Pulse Resp BP Pulse Ox 05/08/17 15:06 98.2 F 83 16 113/70 94 05/08/17 14:56 81 16 115/78 94 05/08/17 14:46 86 16 126/78 97 05/08/17 14:36 98.2 F 86 16 117/76 99 05/08/17 12:00 98.1 F 87 14 117/70 91 - Lungs Lungs: Clear Ascult./Percussion - Airway Airway: Non-obstructed - Cardiovascular Regular Rate, Baseline Rhythm - Mental Status Mental Status: Alert & Oriented, Answers Appropriately - Pain Pain Scale: 0 Pain Scale used: Numeric (1 - 10) - Nausea Vomiting Nausea Vomiting: Not Present - Hydration Hydration: NPO, Tolerates oral liquids, Has not voided - Discharge PostOp Status: Transfer Patient to floor
[2017-05-08] MEDS ORDERED: *HR* HYDROcodone/Acet 7.5/325 mg TABLET PO PRN (15:42)
[2017-05-08] MEDS ORDERED: D5% in Water 1,000 ML IVC PRN (15:42)
[2017-05-08] MEDS ORDERED: D5% in 0.45% NACL w KCl 20 MEQ/1,000 ML MLS IVC SCH ×2 (15:42)
[2017-05-08] MEDS ORDERED: Potassium Phosphate 44 MEQ in 0.9 % Sodium Chloride 250 ML IVPB PRN (15:42)
[2017-05-08] MEDS ORDERED: Potassium Chloride 40 MEQ/200 ML BAG IVPB PRN (15:42)
[2017-05-08] MEDS ORDERED: *HR* Dextrose 50 % in Water (Syg) 50 ML SYRINGE IVP PRN (15:42)
[2017-05-08] MEDS ORDERED: Dextrose Gel 15 GM PO PRN ×2 (15:42)
[2017-05-08] MEDS ORDERED: Ondansetron 4 MG/2 ML VIAL IVP PRN (15:42)
[2017-05-08] MEDS ORDERED: Naloxone 0.4 MG/ML INJ IVP PRN (15:42)
[2017-05-08] MEDS: traMADol 50 MG TABLET PO PRN (17:16)
[2017-05-08] MEDS ORDERED: Gabapentin 400 MG CAPSULE PO SCH (21:00)
[2017-05-09] MEDS: Piperacillin/Tazobactam 3.375 GM in 0.9 % Sodium Chloride Mini Bag 100 ML IVPB SCH ×2 (04:42→11:47)
[2017-05-09] MEDS ORDERED: *HR* Enoxaparin 40 MG/0.4 ML SYRINGE SQ SCH (06:00)
[2017-05-09] MEDS ORDERED: Pantoprazole 40 MG VIAL IVP SCH (06:30)
[2017-05-09] MEDS: Clindamycin 600 MG/50 ML 600 MG/50 ML IV.SOLN IVPB SCH ×2 (06:59→14:20)
[2017-05-09] MEDS: Insulin LISPRO 300 UNITS/3 ML VIAL SQ SCH ×4 (07:19→12:30)
[2017-05-09] MEDS: Gabapentin 100 MG CAPSULE PO SCH ×2 (08:39→17:29)
[2017-05-09] MEDS ORDERED: Nicotine 21 MG PATCH.TD24 TD SCH (09:00)
--- NOTE | 2017-05-09 11:52 | General Surgery Progress Note ---
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 Current Visit: Yes Status: Acute 56F with mari's gangrene POD #4 s/p excisional debridement, POD #3 s/p takeback with additional exicisional debridement, POD #2 s/p takeback with aditional excisional debridement and washout, POD #1 s/p wound vac placement - cont IV abx with zosyn and zyvox - IVF - OR 05/10 wound vac placement and wound evaluation; possibly combination with ortho d/c mcgowan today; ambulate/activity with NWB to RLE (2) Sepsis Current Visit: Yes Status: Acute 2/2 mari's gangrene; improved UOP, BP; no pressors; sepsis is resolving cont abx regimen follow up WBC Qualifiers: Sepsis type: sepsis due to unspecified organism Qualified Code(s): A41.9 - Sepsis, unspecified organism Subjective Patient reports: no new complaints, feels better, tolerating a regular diet, no flatus, no bowel movement Objective Vital Signs - Last 8 Hours Temp Pulse Resp BP Pulse Ox 05/09/17 07:40 98.8 F 69 16 112/68 94 Intake and Output 05/08/17 05/09/17 05/09/17 23:59 07:59 15:59 Intake Total 400 / 400 150 / 150 Output Total 1350 / 1350 Balance -950 / -950 150 / 150 Intake: IV Fluids 150 / 150 Cleocin Premix 600 MG/50 ML 600 50 / 50 mg In 50 ml @ 50 mls/hr IVPB Q8H [facility] Rx#:[id number] Zosyn 3.375 GM In 0.9 % Sodium 100 / 100 Chloride (Mini-Bag +) 100 ML @ 25 mls/hr IVPB Q8H [facility] Rx#: [id number] Oral 400 / 400 Output: Urine 750 / 750 Catheter 600 / 600 Other: Meal Dinner Percent of Meal Consumed 5% - General physical appearance well developed, well nourished, no distress - Respiratory normal expansion, normal respiratory effort - Cardiovascular Cardiovascular exam: Present: RRR - Neurologic CN 2-12 grossly intact - Psychiatric oriented to time, oriented to person, oriented to place - Labs 05/08/17 11:50 05/08/17 11:50 Diabetes panel 05/08/17 Range/Units 11:50 Sodium 140 (136-145) mEq/L Potassium 4.1 (3.5-4.5) mEq/L Chloride 108 (98-109) mEq/L Carbon Dioxide 29 (19-29) mEq/L BUN 5 L (7-20) mg/dL Creatinine 0.59 (0.57-1.11) mg/dL Glucose 101 H (70-99) mg/dL Calcium 8.0 L (8.6-10.8) mg/dL Calcium panel 05/08/17 Range/Units 11:50 Calcium 8.0 L (8.6-10.8) mg/dL Phosphorus 3.6 D (2.3-4.7) mg/dL Pituitary panel 05/08/17 Range/Units 11:50 Sodium 140 (136-145) mEq/L Potassium 4.1 (3.5-4.5) mEq/L Chloride 108 (98-109) mEq/L Carbon Dioxide 29 (19-29) mEq/L BUN 5 L (7-20) mg/dL Creatinine 0.59 (0.57-1.11) mg/dL Glucose 101 H (70-99) mg/dL Calcium 8.0 L (8.6-10.8) mg/dL Adrenal panel 05/08/17 Range/Units 11:50 Sodium 140 (136-145) mEq/L Potassium 4.1 (3.5-4.5) mEq/L Chloride 108 (98-109) mEq/L Carbon Dioxide 29 (19-29) mEq/L BUN 5 L (7-20) mg/dL Creatinine 0.59 (0.57-1.11) mg/dL Glucose 101 H (70-99) mg/dL Calcium 8.0 L (8.6-10.8) mg/dL - VTE Documentation of Mechanical Device: Intermittent pneumatic compression device Consult Discharge Plan - Plan Referrals: NONE,PCP [Primary Care Provider] -
[2017-05-09 11:59] LABS: Basophils % 0.2 %; Eosinophils # 0.2 K/mcL (0.0-0.6); Eosinophils % 1.1 %; Hematocrit 28.9 % (35.3-44.9); Hemoglobin 9.7 g/dL (11.5-15.4); Immature Granulocytes % 3.9 % (0-4); Lymphocytes # 2.5 K/mcL (0.6-4.6); Lymphocytes % 17.3 %; Mean Corpuscular HGB Conc 33.6 g/dL (31.6-35.5); Mean Corpuscular Hemoglobin 29.3 pg (28.0-33.3); Mean Corpuscular Volume 87.3 fL (83.0-100.0); Mean Platelet Volume 9.7 fL (9.4-12.4); Monocytes # 0.8 K/mcL (0.0-1.3); Monocytes % 5.7 %; Nucleated Red Blood Cells 0.3 /100 WBC (0); Platelet Count 424 K/mcL (140-400); Red Blood Count 3.31 M/mcL (3.82-4.97); Red Cell Distribution Width 14.4 % (11.5-14.5); Segmented Neutrophils % 71.8 %
[2017-05-09 12:02] LABS: Neutrophils # 10.3 K/mcL (1.6-8.9)
[2017-05-09 12:04] VITALS: BP 103/68
--- NOTE | 2017-05-09 13:22 | Internal Med Progress Note ---
Date of Encounter: 05/09/17 Time of Encounter: 13:17 - Assessment and plan (1) Abscess, gluteal, left Current Visit: Yes Status: Acute Assessment and plan: Patient is a left gluteal abscess.s/p multiple surgeries, current on wound vac cont IV abx with zosyn and clindamycin and vancomycin Surgeon is ok to transfer, patient is stable (2) Pathologic fracture of femur Current Visit: Yes Status: Acute Assessment and plan: The etiology for pathologic fracture of the femur is unclear, ortho recommended to transfer to [facility] for biopsy Hematologic oncology on the board Qualifiers: Pathology associated with fracture: other disease Encounter type: initial encounter Laterality: right Qualified Code(s): M84.651A - Pathological fracture in other disease, right femur, initial encounter for fracture (3) Fracture of femur Current Visit: Yes Status: Acute Assessment and plan: Orthopedic surgery was consult takes, they recommended nonweightbearing right lower extremity follow treatment for abscess hold any definitive surgery for the right femur until better understanding of etiology is known infection has resolved. Risk of seeding the hip is of concern for postoperative infection. 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 Current Visit: Yes Status: Acute Assessment and plan: mari's gangrene POD #4 s/p excisional debridement, POD #3 s/p takeback with additional exicisional debridement, POD #2 s/p takeback with aditional excisional debridement and washout, POD #1 s/p wound vac placement - cont IV abx with zosyn and clindamycin, vanco surgeon is ok to transfer - Subjective Interval history: Patient was admitted for right hip fracture, and she was found having 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 She is doing well, WBC trending done, afebrile. discussed with patient about transfering to [facility] , patient agrees. - Constitutional Vitals: Temp Pulse Resp BP Pulse Ox 98.6 F 88 16 103/68 93 05/09/17 11:31 05/09/17 11:31 05/09/17 11:31 05/09/17 11:31 05/09/17 11:31 CONSTITUTIONAL: patient appears as an age appropriate female in no acute distress. EYES Clear sclerae, bilateral pupils are equal, reactive to light. EMOI. RESPIRATORY: No accessory muscle use, bilateral clear to auscultation, no wheezing, no crackles/rales. CARDIOVASCULAR: Regular heart rate, normal S1 and S2, no murmurs GASTROINTESTINAL: bowel sounds present, soft, no tenderness. MUSCULOSKELETAL: Joints in normal range of motion, no clubbing, no edema, no cyanosis. Bilateral peripheral pulses 2+. NEUROLOGIC: CN II to XII are grossly intact, no focal neurological deficit. General appearance: Present: A&O X 3, no acute distress Internal Medicine: Result - Labs CBC & Chem 7: 05/09/17 11:35 05/08/17 11:50 Labs: Short CBC 05/09/17 Range/Units 11:35 WBC 14.4 H (4.3-11.1) K/mcL Hgb 9.7 L (11.5-15.4) g/dL Hct 28.9 L (35.3-44.9) % Plt Count 424 H (140-400) K/mcL Neutrophils # 10.3 H (1.6-8.9) K/mcL - ABG Interpretation ABG results: ABG ABG pH 7.40 pH Units (7.32-7.45) 05/07/17 04:02 ABG pCO2 41 mmHg (35-45) 05/07/17 04:02 ABG pO2 104 mmHg (85-104) 05/07/17 04:02 ABG O2 Saturation 98 % (95-98) 05/07/17 04:02 PT/INR, D-dimer PT 12.3 Seconds (9.4-12.1) H 05/07/17 04:00 - VTE Documentation of Mechanical Device: Intermittent pneumatic compression device Consult Discharge Plan - Plan Referrals: NONE,PCP [Primary Care Provider] -
[2017-05-09] MEDS ORDERED: Vancomycin 1,000 MG in D5% in Water 250 ML IVPB SCH ×2 (14:00→17:00)
--- NOTE | 2017-05-09 15:38 | Orthopedic Consult Note ---
Date of Encounter: 05/09/17 Time of Encounter: 12:00 Assessment and Plan (1) Pathologic fracture of femur Current Visit: Yes Status: Acute The diagnosis and treatment were discussed with Elena. She has a lesion of her proximal femur concerning for malignancy although infection is a possibility. She does not have a known primary cancer and has not had a previous bone lesion. So far workup has not revealed primary cancer. Recommend transfer to [facility] for evaluation by orthopedic oncology for possible biopsy with resection vs stabilization depending on results. Discussed this at length with the family and they are in agreement with plan. NWB on right leg. Qualifiers: Pathology associated with fracture: other disease Encounter type: initial encounter Laterality: right Qualified Code(s): M84.651A - Pathological fracture in other disease, right femur, initial encounter for fracture History of Present Illness Chief complaint: Right hip pain HPI: Ms. Zacarias is a 56 year old female with a 4 month history of right hip pain. No trauma. Pain has been gradually worsening. Also with a left gluteal and mari 's gangrene s/p multiple debridements. Denies any recent unexplained weight loss. Denies f/c/ns. Past Med Surg Social Fam HX - Past Medical History Medical history: other Psychiatric history: anxiety - Social History Smoking Status: Current every day smoker Packs per day: 1 Smokeless Tobacco Status: No Alcohol use: none Drug use: marijuana Medications and Allergies No Known Home Drugs 05/05/17 [History] 3 Allergy/AdvReac Type Severity Reaction Status Date / Time No Known Allergies Allergy Verified 05/04/17 18:30 All Systems Reviewed: A 10-system review of systems was performed and is negative for pertinent findings except as documented above in the HPI. Physical Exam - Constitutional Vitals: Temp Pulse Resp BP Pulse Ox 98.6 F 88 16 103/68 93 05/09/17 11:31 05/09/17 11:31 05/09/17 11:31 05/09/17 11:31 05/09/17 11:31 Exam: Consult Exam: Constitutional -Vitals reviewed -The patient is well developed and well nourished. -Mood is pleasant. -The patient is well groomed. Psychiatric -The patient is fully alert and oriented x 3. Respiratory: -Respiratory effort normal Abdomen: -Soft abdomen -Non tender -Non distended: Left upper extremity: -No deformities. The overlying skin is intact. No obvious signs of acute trauma. -No tenderness to palpation throughout. -No significant pain with passive motion of the shoulder, elbow, wrist, and fingers within the limits of the bed. -Able to make an "OK" sign, cross the index and long fingers, and extend the thumb. -Sensation grossly intact to light touch throughout the median, radial, and ulnar distributions. -Radial pulse is present; Fingers have good capillary refill. Right upper extremity: -No deformities. The overlying skin is intact. No obvious signs of acute trauma. -No tenderness to palpation throughout. -No significant pain with passive motion of the shoulder, elbow, wrist, and fingers within the limits of the bed. -Able to make an "OK" sign, cross the index and long fingers, and extend the thumb. -Sensation grossly intact to light touch throughout the median, radial, and ulnar distributions. -Radial pulse is present; Fingers have good capillary refill. Left lower extremity: -No deformities. Gluteal abscess with wound vac in place. -No tenderness to palpation throughout. -No pain with passive motion of the hip, knee, ankle, and toes within the limits of the bed. -No pain with axial loading of the thigh. -Able to dorsiflex and plantarflex the ankle and toes. -Sensation is grossly intact to light touch throughout the sural, saphenous, superficial peroneal, and deep peroneal distributions. -Toes have good capillary refill. Right lower extremity: -No deformities. The overlying skin is intact. No obvious signs of acute trauma. -There is tenderness in the groin region as well as the proximal lateral thigh. Swelling of the lower extremity, worse along the lateral thigh -I did not range the hip due to the known fracture. -No tenderness along the distal thigh, leg, ankle, foot, or toes. -Able to dorsiflex and plantarflex the ankle and toes. -Sensation is grossly intact to light touch throughout the sural, saphenous, superficial peroneal, and deep peroneal distributions. -Toes have good capillary refill. Results - Labs Result Diagrams: 05/09/17 11:35 05/08/17 11:50 Labs: Abnormal lab results WBC 14.4 K/mcL (4.3-11.1) H 05/09/17 11:35 RBC 3.31 M/mcL (3.82-4.97) L 05/09/17 11:35 Hgb 9.7 g/dL (11.5-15.4) L 05/09/17 11:35 Hct 28.9 % (35.3-44.9) L 05/09/17 11:35 Plt Count 424 K/mcL (140-400) H 05/09/17 11:35 Metamyelocytes % 2.0 % (0) H 05/04/17 21:13 Neutrophils # 10.3 K/mcL (1.6-8.9) H 05/09/17 11:35 Nucleated RBCs/100 WBC 0.3 /100 WBC (0) H 05/09/17 11:35 Reactive Lymphocytes Present (Not Present) A 05/08/17 11:50 Toxic Granulation Present (Not Present) A 05/05/17 23:11 [place] Cells 1+ (Not Present) A 05/05/17 08:57 ESR 118 mm/hr (0-15) H 05/04/17 21:13 PT 12.3 Seconds (9.4-12.1) H 05/07/17 04:00 ABG Total CO2 27 mEq/L (20-26) H 05/07/17 04:02 BUN 5 mg/dL (7-20) L 05/08/17 11:50 Glucose 101 mg/dL (70-99) H 05/08/17 11:50 POC Glucose 114 (58-89) H 05/07/17 17:50 Calcium 8.0 mg/dL (8.6-10.8) L 05/08/17 11:50 C-Reactive Protein 365 mg/L (Less than 5) H 05/04/17 21:13 Serum Total Protein 4.9 g/dL (6.0-8.3) L 05/06/17 05:57 Total Protein (PEP) 5.30 g/dL (6.00-8.30) L 05/05/17 04:43 Albumin 1.8 g/dL (3.5-5.0) L 05/06/17 05:57 Albumin (PEP) 2.46 g/dL (3.75-5.01) L 05/05/17 04:43 Albumin/Globulin Ratio 0.6 (1.1-2.2) L 05/06/17 05:57 Zhdlz-9-Tstouoync 0.55 g/dL (0.19-0.46) H 05/05/17 04:43 Qbdzn-3-Wjprxbwof 1.23 g/dL (0.48-1.05) H 05/05/17 04:43 Gamma Globulins 0.51 g/dL (0.62-1.51) L 05/05/17 04:43 Vancomycin Trough 9.7 mcg/mL (10-20) L 05/08/17 02:01 IgG 590 mg/dL (768-1632) L 05/05/17 04:43 IgA 48 mg/dL (68-408) L 05/05/17 04:43 IgM 25 mg/dL (35-263) L 05/05/17 04:43 H & H 05/09/17 Range/Units 11:35 Hgb 9.7 L (11.5-15.4) g/dL Hct 28.9 L (35.3-44.9) % All other labs normal. - Diagnostic results Hip x-ray: report reviewed, image reviewed Hip CT: report reviewed, image reviewed (Moth eaten pathologic lesion of the proximal femur with possible non-displaced intertrochanteric fracture) Consult Discharge Plan - Plan Referrals: NONE,PCP [Primary Care Provider] -
[2017-05-09] MEDS: traMADol 50 MG TABLET PO PRN (17:29)
[2017-05-09] MEDS ORDERED: Aminoglycoside Consult 1 EACH MC ONE (18:06)
--- NOTE | 2017-05-09 19:25 | Discharge Summary ---
Date of Encounter: 05/09/17 Time of Encounter: 19:22 - Discharge Diagnosis (1) Abscess, gluteal, left Priority: Primary (improved) Status: Acute Comments: had multiple surgeries done, now on wound VAc, and continue ATB with vancomycin , clindamycin and zosyn (2) Pathologic fracture of femur Priority: Secondary (transfer to [facility]) Status: Acute Comments: concerning of femur malignacy, transfer to [facility] pia for bone biopsy Qualifiers: Pathology associated with fracture: other disease Encounter type: initial encounter Laterality: right Qualified Code(s): M84.651A - Pathological fracture in other disease, right femur, initial encounter for fracture (3) Fracture of femur Priority: Secondary (transfer to [facility]) Status: Acute Comments: ortho recommended transfering to [facility] due lto concern of bone malignancy Qualifiers: Encounter type: initial encounter Femur location: intertrochanteric Fracture type: closed Fracture alignment: nondisplaced Laterality: right Qualified Code(s): S72.144A - Nondisplaced intertrochanteric fracture of right femur, initial encounter for closed fracture (4) Leukocytosis Priority: Secondary Status: Resolved Comments: from abscess and trending down Qualifiers: Leukocytosis type: unspecified Qualified Code(s): D72.829 - Elevated white blood cell count, unspecified (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 Comments: s/p multiple debridement - Discharge Medications Home Medications: No Known Home Drugs 05/05/17 [History] Allergies/Adverse Reactions: 3 Allergy/AdvReac Type Severity Reaction Status Date / Time No Known Allergies Allergy Verified 05/04/17 18:30 Date of admission: 05/05/17 03:29 Primary care physician: PCP NONE Consults: 05/08/17 15:42 Consult to Wound Care [CONS] Routine Reason for Consult: patient has wound vac, will likely need assistance Call Completed: No Discharging clinician: Yadira Wright Anticipated date of discharge: 05/09/17 - Patient Status Disposition: Transfer Other Condition: Good Functional capacity at discharge: bed bound (fracture) Overall status at discharge: patient is progressing back to baseline - Discharge Instructions Follow Up With: NONE,PCP [Primary Care Provider] - - Diet and Activity Activity: other Diet: advance to your usual diet, regular diet Interval History: patient was admitted for right hip pain, she was found sepsis from perirectal abscess, had multiple debridement, and on IV vanco, zosyn and clindamycin. lwound kVAC was placed. Hip fracture was seen by ortho, LCT showed possible bone malignancy, ortho recommended to transfer to [facility]. Patient is transfering to [facility] on stable condition Hospital course: Ms. Zacarias is a 56 year old female was admitted for right hip pain, she was found sepsis from perirectal abscess, had multiple debridement, and on IV vanco , zosyn and clindamycin. wound VAC was placed. Hip fracture was seen by ortho, LCT showed possible bone malignancy, ortho recommended to transfer to [facility]. Patient is transfering to [facility] on stable condition - Time Spent with Patient Total time spent providing and/or coordinating discharge services: Greater than 30 minutes - Constitutional Vitals: Temp Pulse Resp BP Pulse Ox 98.6 F 88 16 103/68 93 05/09/17 11:31 05/09/17 11:31 05/09/17 11:31 05/09/17 11:31 05/09/17 11:31 General appearance: Present: A&O X 3, no acute distress - Head Head exam: Present: atraumatic, normocephalic - Eye Eye exam: Present: PERRL, conjuntiva pink, sclera anicteric Pupils: Present: PERRL - ENT ENT exam: Present: normal exam, normal oropharynx - Neck Neck exam general surgery: Present: supple, trachea midline. Absent: lymphadenopathy - Respiratory Respiratory exam: Present: CTAB. Absent: accessory muscle use, rales, rhonchi, wheezes - Cardiovascular Cardiovascular exam: Present: RRR, +S1, +S2. Absent: diastolic murmur, gallop, rubs, systolic murmur - GI/Abdominal GI/Abdominal exam: Present: normal bowel sounds, soft, no peritoneal signs. Absent: distended, tenderness - Extremities Exam Extremities exam: Present: warm, radial pulses palpable and symmetrical. Absent : calf tenderness, cyanotic, pedal edema Additional comments: right hip pain and limitted ROM - Neurological Exam Neurological exam: Present: CN II-XII intact, oriented X3, no focal deficits. Absent: pronater drift, facial droop, speech deficit - Psychiatric Psychiatric exam: Present: normal affect, normal mood - Skin Skin exam: Present: dry, intact - VTE Documentation of Mechanical Device: Intermittent pneumatic compression device
[2017-05-10 14:37] LABS: Kappa Qnt Free Light Chains 1.63 mg/dL (0.33-1.94); Lambda Qnt Free Light Chains 2.66 mg/dL (0.57-2.63)
[2017-05-11 00:27] LABS: Alpha 2 Globulin (PEP) 0.88 g/dL (0.48-1.05); Beta Globulin (PEP) 0.52 g/dL (0.48-1.10)
[2017-05-11 07:40] LABS: IFE Reflexed IFE Done
== END 2017-05-09 18:07 | disposition other institution (70) | DRG 853 ==
LOC: 3NENU 17:57 → EMEROO 17:57 → 3NENU 05-05 00:44 → SUATTDRO 05-05 03:29 → ICNU 05-05 22:15 → 3NENU 05-07 15:13
PROVIDERS: ADMIT Internal Medicine; ATTEND Hospitalist

== ENCOUNTER 2017-08-27 12:20 | Inpatient (IN) ==
[2017-08-27] MEDS ORDERED: CeFAZolin Syr 2,000MG/20 ML 2,000 MG/20 ML SYRINGE IVPB ONE (12:40)
[2017-08-27] MEDS ORDERED: Ringers Solution, Lactated 1,000 ML IVC SCH (12:45)
[2017-08-27] MEDS ORDERED: diazePAM 5 MG TABLET PO ONE (13:05)
--- NOTE | 2017-08-27 13:07 | Anesthesia Evaluation PreOp ---
Date of Encounter: 08/27/17 Time of Encounter: 13:04 - Past History Planned Operation: Right groin biopsy, left groin debridement Cardiac History: Denies any Significant Hx Pulmonary History: Smoker SUBWAY GUARD History: Other (anxiety) Other Medical History: Other (pathologic right femur fracture (patient cannot move her right LE much at all); fornier's gangrene) Anesthesia History: No Prior Anesthetic Complications Alcohol Use: none Drug use: marijuana Medications and Allergies Acetaminophen [Acetaminophen ER] 650 mg PO Q6H PRN 07/28/17 [History] Alprazolam [Alprazolam Xr] 1 mg PO TID PRN 07/28/17 [History] Gabapentin [Neurontin] 100 mg PO QAM 07/28/17 [History] Gabapentin [Neurontin] 400 mg PO HS 07/28/17 [History] Morphine Sulfate [Arymo ER] 15 mg PO BID 07/28/17 [History] Pantoprazole Sodium [Protonix] 40 mg PO DAILY 07/28/17 [History] Sennosides [Laxative] 17.2 mg PO BID 07/28/17 [History] OxyCODONE/APAP 5/325 [Percocet 5/325 MG] 1 each PO Q8H PRN 30 Days #90 tablet [Rx] Zolpidem [Ambien] 10 mg PO HS 30 Days #30 tablet 08/20/17 [Rx] 3 Allergy/AdvReac Type Severity Reaction Status Date / Time No Known Allergies Allergy Verified 05/04/17 18:30 - Meds/Allergy Pre-op Review Medications Reviewed: Yes Allergies Reviewed: Yes Beta Blockers on Current Med List: No Anesthesia Results - Labs Laboratory Tests 08/20/17 08/20/17 13:27 13:27 WBC 10.3 Hgb 11.0 L Hct 35.0 L Plt Count 553 H Sodium 137 Potassium 3.8 Chloride 103 Carbon Dioxide 27 BUN 8 Creatinine 0.75 Est GFR ( Amer) > 60 Est GFR (Non-Af Amer) > 60 BUN/Creatinine Ratio 11 Glucose 105 - Imaging EKG: report reviewed, image reviewed (ST) Anesthesia Exam Last Vital Signs Temp 98.7 F 08/27/17 12:58 Pulse 91 08/27/17 12:58 Resp 18 08/27/17 12:58 BP 106/70 08/27/17 12:58 Pulse Ox 97 08/27/17 12:58 Weight: 52 kg NPO (# of Hours): > 8 hrs - HEENT Pupil (Motor): Pupils equal, EOMI Mallampati: II Teeth: Edentulous Denture Type: Upper: Complete, Lower: Complete Oral Opening: Greater than 3 - SUBWAY GUARD LOC: Oriented - Cardiac Rhythm: Regular Murmur: None - Pulmonary Breath Sounds: bilateral Clear Respiratory Effort: Symmetrical Anesthesia Assess/Plan ASA Score: 3 Modified Dallas Scale for Level of Consciousness: Cooperative, oriented, and tranquil Anesthetic Plan: General Monitoring Plan: Standard Monitors Recovery Plan: PACU
[2017-08-27] MEDS ORDERED: Albuterol 2.5 MG/3 ML NEBULIZER IH ONE (13:14)
[2017-08-27] MEDS ORDERED: Albuterol 2.5 MG/3 ML NEBULIZER ONE (13:18)
--- NOTE | 2017-08-27 13:36 | History & Physical Report ---
Date of Encounter: 08/27/17 Time of Encounter: 13:35 24 Hour HP Update - Instructions Instructions: If the History and Physical is less than 30 days old and was completed prior to A.M. admission and or procedure and has NOT been updated on calendar day of procedure please complete this update prior to performing procedure. - Update Patient reports changes in Medical Condition: No Changes in examination, assessment, or condition: No Changes in Medication: No Preop tests/diagnostics Reviewed: Yes Surgery Remains Indicated: Yes Consent for Planned Operative Procedure(s) Verified: Yes - Pre-Operative Checklist Preoperative Checklist Indicated: Yes Prophylactic Antibiotic Ordered: Yes Home Medications Include Beta Cristian: No Beta Cristian Taken Yesterday (Day Prior to Surgery): No Is VTE Prophylaxis Indicated?: Yes - Attending Attestation patient seen and examined; no changes in patient health since last evaluation; okay to proceed with surgery
[2017-08-27] MEDS ORDERED: Ondansetron 4 MG/2 ML VIAL ONE (14:31)
[2017-08-27] MEDS ORDERED: *HR* Propofol 200 MG/20 ML VIAL IVP ONE (14:31)
[2017-08-27] MEDS ORDERED: *HR* Succinylcholine 200 MG/10 ML VIAL IVP ONE (14:31)
[2017-08-27] MEDS ORDERED: *HR* FentaNYL (PF) 100 MCG/2 ML VIAL ONE ×3 (14:31→15:52)
[2017-08-27] MEDS ORDERED: Lidocaine -MPF 2% 2 ML VIAL ONE (14:31)
[2017-08-27] MEDS ORDERED: *HR* Promethazine 25 MG/ML VIAL IVP PRN (14:35)
[2017-08-27] MEDS ORDERED: *HR* OxyCODONE Immed Rel 5 MG TABLET PO PRN (14:35)
[2017-08-27] MEDS ORDERED: MORPHINE SUL Oral CONC 10 MG/0.5 ML ORAL.SYG SL PRN (14:35)
[2017-08-27] MEDS ORDERED: *HR* Labetalol 20 MG/4 ML SYRINGE IVP PRN (14:35)
[2017-08-27] MEDS ORDERED: Vancomycin 1,000 MG VIAL ONE (15:11)
[2017-08-27] MEDS ORDERED: MORPHINE SUL Oral CONC 10 MG/0.5 ML ORAL.SYG ONE (16:32)
--- NOTE | 2017-08-27 16:57 | Anesthesia Evaluation Post Op ---
Date of Encounter: 08/27/17 Time of Encounter: 16:56 - Vital Signs Vital Signs: vss - Lungs Lungs: Clear Ascult./Percussion - Airway Airway: Non-obstructed - Cardiovascular Baseline Rhythm - Mental Status Mental Status: Alert & Oriented, Answers Appropriately - Pain Pain Scale used: Bethany (Faces) - Nausea Vomiting Nausea Vomiting: Not Present - Hydration Hydration: Ice chips - Discharge PostOp Status: Transfer Patient to floor
[2017-08-27] MEDS ORDERED: Ringers Solution, Lactated 1,000 ML ONE (17:03)
[2017-08-27] MEDS ORDERED: Acetaminophen 325 MG TABLET PO PRN (17:19)
[2017-08-27] MEDS ORDERED: traMADol 50 MG TABLET PO PRN (17:19)
[2017-08-27] MEDS ORDERED: *HR* HYDROcodone/Acet 5/325 mg TABLET PO PRN (17:19)
[2017-08-27] MEDS ORDERED: ALPRAZolam 1 MG TABLET PO PRN (17:19)
[2017-08-27] MEDS ORDERED: Naloxone 0.4 MG/ML INJ IVP PRN ×2 (17:19→18:23)
[2017-08-27] MEDS ORDERED: *HR* Morphine 2 MG/ML SYRINGE IVP PRN (18:00)
--- NOTE | 2017-08-27 18:27 | Operative Note ---
Date of procedure: 08/27/17 Pre-op diagnosis: infected left gluteal wound Post-op diagnosis: same Procedure: excisional debridement, removal of foreign body, biopsy of left gluteal wound cavity Implants: dakin's soaked kerlix guaze Complications: none Anesthesia: GETA Local Anesthetics: 0.5% Sensorcaine HCL SubQ (cc) Surgeon: Álvaro Wang Was there an assistant coach present: No Estimated blood loss (cc): 50 Specimen: wound drainage, cavity skin, foreign body (wound vac sponges), cavity wall Condition: stable Disposition: PACU Procedure in Detail: Patient was brought into the operating room suite. Mechanical DVT prophylaxis was placed. She underwent smooth induction of anesthesia. Preoperative antibiotics were given. She was placed in the supine position. She was prepped and draped in the usual fashion. A time out was held identifying correct patient, pathology, procedure, and physician. I stated by sending a q-tip for culture of the wound drainage. I then created a circumferential incision around an ulcerated section of skin that served as the covering of the wound cavity. I sent that for pathology. I then began to investigate the wound and began to retrieve old pieces of wound vac sponges, the black ones. I continued to pull out large pieces. I sent this for culture. I then began to remove the residual pieces from the wound cavity that were significantly adhered to the cavity. I sent this for pathology. I then used pressure to control bleeding. Used Surgicell, then irrigated the wound with saline impregnated with vancomycin. I then packed the wound with dakin's solution soaked kerlix roll. Covered that with an ABD pad. I then concluded the procedure. The patient tolerated the procedure and was escorted to the PACU in stable condition.
[2017-08-27] MEDS: *HR* Morphine 30 MG/ 30 ML PCA IVC PRN (19:05)
[2017-08-27] MEDS: 0.9 % Sodium Chloride w KCl 20 MEQ/1,000 ML MLS IVC SCH (19:13)
[2017-08-27] MEDS ORDERED: Gabapentin 400 MG CAPSULE PO SCH (21:00)
[2017-08-28] MEDS: Piperacillin/Tazobactam 3.375 GM in 0.9 % Sodium Chloride Mini Bag 100 ML IVPB SCH ×3 (00:35→16:14)
[2017-08-28] MEDS ORDERED: *HR* Enoxaparin 40 MG/0.4 ML SYRINGE SQ SCH (06:00)
[2017-08-28] MEDS: *HR* Morphine 30 MG/ 30 ML PCA IVC PRN ×2 (06:21→17:06)
[2017-08-28] MEDS: 0.9 % Sodium Chloride w KCl 20 MEQ/1,000 ML MLS IVC SCH (08:50)
[2017-08-28] MEDS ORDERED: Gabapentin 100 MG CAPSULE PO SCH (09:00)
[2017-08-28] MEDS ORDERED: *HR* FentaNYL (PF) 100 MCG/2 ML VIAL ONE ×3 (17:36→19:16)
[2017-08-28] MEDS ORDERED: Lidocaine -MPF 4% 5 ML AMPUL ONE (17:36)
[2017-08-28] MEDS ORDERED: Neostigmine Methylsulfate 3 MG/3 ML SYRINGE ONE (17:36)
[2017-08-28] MEDS ORDERED: *HR* Succinylcholine 200 MG/10 ML VIAL IVP ONE (17:36)
[2017-08-28] MEDS ORDERED: Ketorolac 30 MG/ML VIAL ONE (17:36)
[2017-08-28] MEDS ORDERED: *HR* Midazolam HCl 2 MG/2 ML VIAL ONE (17:40)
[2017-08-28] MEDS ORDERED: Ondansetron 4 MG/2 ML VIAL ONE (17:40)
[2017-08-28] MEDS ORDERED: Lidocaine -MPF 2% 2 ML VIAL ONE (17:40)
[2017-08-28] MEDS ORDERED: Dexamethasone 4 MG/ML VIAL ONE (17:40)
[2017-08-28] MEDS ORDERED: *HR* Propofol 200 MG/20 ML VIAL IVP ONE (17:41)
--- NOTE | 2017-08-28 18:16 | Anesthesia Evaluation PreOp ---
Date of Encounter: 08/28/17 Time of Encounter: 18:14 - Past History Planned Operation: Wound Vac Left gluteal area Cardiac History: Denies any Significant Hx Pulmonary History: Smoker (1 cigar/week) [employer]ICE History: Denies Any Significant HX Other Medical History: GERD (Mild), Other (Right femoral pathological fracture, restricted mobility, primary source unknown) : No Alcohol Use: none Drug use: marijuana (Occasional) Medications and Allergies Acetaminophen [Acetaminophen ER] 650 mg PO Q6H PRN 07/28/17 [History] Gabapentin [Neurontin] 100 mg PO QAM 07/28/17 [History] Gabapentin [Neurontin] 400 mg PO HS 07/28/17 [History] Morphine Sulfate [Arymo ER] 15 mg PO BID 07/28/17 [History] Pantoprazole Sodium [Protonix] 40 mg PO DAILY 07/28/17 [History] Sennosides [Laxative] 17.2 mg PO BID 07/28/17 [History] OxyCODONE/APAP 5/325 [Percocet 5/325 MG] 1 each PO Q8H PRN 30 Days #90 tablet [Rx] Zolpidem [Ambien] 10 mg PO HS 30 Days #30 tablet 08/20/17 [Rx] ALPRAZolam [Xanax 1 MG Tablet] 1 mg PO TID PRN 08/27/17 [History] 3 Allergy/AdvReac Type Severity Reaction Status Date / Time acetaminophen [From [facility]] AdvReac Gastrointestinal Verified 08/27/17 17:46 Upset hydrocodone [From Rolette] AdvReac Gastrointestinal Verified 08/27/17 17:46 Upset Anesthesia Exam Vital Signs/O2 Sat/Glucose, Most Recent Temp Pulse Resp BP Pulse Ox 99.3 F 87 18 97/54 93 08/28/17 16:13 08/28/17 16:13 08/28/17 16:13 08/28/17 16:13 08/28/17 16:13 NPO (# of Hours): >8 hrs - HEENT Mallampati: II Denture Type: Upper: Complete, Lower: Complete - Cardiac Rhythm: Regular - Pulmonary Breath Sounds: bilateral Clear Anesthesia Assess/Plan ASA Score: 3 Modified Viviane Scale for Level of Consciousness: Cooperative, oriented, and tranquil Anesthetic Plan: General Monitoring Plan: Standard Monitors Recovery Plan: PACU
[2017-08-28] MEDS ORDERED: Vancomycin 1,000 MG VIAL ONE (18:31)
--- NOTE | 2017-08-28 18:31 | General Surgery Progress Note ---
Date of Encounter: 08/28/17 Time of Encounter: 18:28 - Assessment and Plan (1) Non-healing surgical wound Current Visit: Yes Status: Acute 56F h/o mari's gangrene s/p exicional debridement now with poorly healing wound; found to have retained wound vac sponges POD#1 s/p excisional debridement and removal of foreing body; doing well; will plan for O to clean and pack wound again; NPO IVF abx OR today Qualifiers: Encounter type: initial encounter Qualified Code(s): T81.89XA - Other complications of procedures, not elsewhere classified, initial encounter Subjective Patient reports: no new complaints, feels better, still having pain, pain is less Objective Vital Signs - Last 8 Hours Temp Pulse Resp BP Pulse Ox 08/28/17 16:13 99.3 F 87 18 97/54 93 08/28/17 12:20 99.2 F 87 16 106/66 95 Intake and Output 08/28/17 08/28/17 08/28/17 07:59 15:59 23:59 Intake Total 100 / 100 1100 / 1100 Output Total 200 / 200 0 / 0 Balance -100 / -100 1100 / 1100 Intake: IV Fluids 100 / 100 1100 / 1100 KCl 20 mEq in 0.9% Sodium 1000 / 1000 Chloride 20 meq In 1,000 ml @ 75 mls/hr IVC .[id number] [facility] Rx#: [id number] Zosyn 3.375 GM In 0.9 % Sodium 100 / 100 100 / 100 Chloride (Mini-Bag +) 100 ML @ 25 mls/hr IVPB Q8HR [facility] Rx#: [id number] Output: Urine 200 / 200 0 / 0 Other: Meal npo # Voids 1 1 - General physical appearance no distress - Respiratory normal expansion, normal respiratory effort - Cardiovascular Cardiovascular exam: Present: RRR - Incision Incision: Present: clean and dry, serosanguinous - Neurologic CN 2-12 grossly intact - Psychiatric oriented to time - VTE Documentation of Mechanical Device: Intermittent pneumatic compression device Consult Discharge Plan - Plan Referrals: Johanna Keating [Primary Care Provider] - NONE,PCP [Family Provider] -
[2017-08-28] MEDS ORDERED: *HR* HYDROmorphone (PF) 1 MG/ML SYRINGE IVP PRN (19:20)
[2017-08-28] MEDS ORDERED: *HR* Promethazine 25 MG/ML VIAL IVP PRN (19:20)
--- NOTE | 2017-08-28 20:12 | Operative Note ---
Date of procedure: 08/28/17 Pre-op diagnosis: left gluteal wound Post-op diagnosis: same Procedure: excisional biopsy of left gluteal wound cavity, wound washout, and placement of a wound vac Implants: 2 white wound vac sponges, one black wound vac sponge Anesthesia: GETA Local Anesthetics: 0.5% Sensorcaine HCL SubQ (cc) Surgeon: Álvaro Wang Was there an orthopedic assistant present: No Estimated blood loss (cc): 5 Specimen: left gluteal wound cavity Condition: stable Disposition: PACU Procedure in Detail: Patient was brought into the operating room suite. Mechanical DVT prophylaxis was placed. Patient underwent smooth induction of anesthesia. She was placed in the prone position. She was prepped and draped in the usual fashion. Preoperative antibiotics were given. A time out was held identifying correct patient, pathology, physician, and procedure. I started by taking biopsies of the wound cavity using an Margarita clamp and a 15 blade scalpel. I then washed out the wound with 3L of saline imed with vancomycin. I then placed the wound vac. I used two white sponges (one full size, one half size) and one black sponge. I applied the suction and it was maintained with a little suction. I then concluded the procedure. The patient was escorted to PACU in stable condition.
--- NOTE | 2017-08-28 20:19 | Anesthesia Evaluation Post Op ---
Date of Encounter: 08/28/17 Time of Encounter: 20:18 - Hydration Hydration: Ice chips - Discharge PostOp Status: Transfer Patient to floor (Patient's vital signs have been reviewed. Patient is stable postoperatively and has adequately recovered from anesthesia, unless otherwise noted. Patient is determined to have stable airway patency and respiratory function including respiratory rate and oxygen saturation. Patient has a stable heart rate, blood pressure and adequate hydration. Patients mental status is acceptable. Patients temperature is appropriate. Pain and nausea are adequately controlled.)
[2017-08-28] MEDS ORDERED: *HR* Morphine 2 MG/ML SYRINGE IVP ONE (20:54)
[2017-08-28] MEDS ORDERED: Acetaminophen 325 MG TABLET PO PRN (20:54)
[2017-08-28] MEDS ORDERED: Naloxone 0.4 MG/ML INJ IVP PRN (20:54)
[2017-08-28] MEDS: Gabapentin 400 MG CAPSULE PO SCH (21:28)
[2017-08-28] MEDS: Sennosides 8.6 MG TABLET PO SCH (21:29)
[2017-08-28] MEDS: ALPRAZolam 1 MG TABLET PO PRN (21:29)
[2017-08-28] MEDS: *HR* Morphine Sulfate SR (12 HR) 15 MG TABLET.ER PO SCH (23:10)
[2017-08-29] MEDS: Piperacillin/Tazobactam 3.375 GM in 0.9 % Sodium Chloride Mini Bag 100 ML IVPB SCH ×2 (00:07→08:57)
[2017-08-29] MEDS: *HR* Enoxaparin 40 MG/0.4 ML SYRINGE SQ SCH (08:57)
[2017-08-29] MEDS: Sennosides 8.6 MG TABLET PO SCH ×2 (08:57→20:24)
[2017-08-29] MEDS: Gabapentin 100 MG CAPSULE PO SCH (08:58)
[2017-08-29] MEDS: *HR* Morphine Sulfate SR (12 HR) 15 MG TABLET.ER PO SCH ×2 (08:58→20:25)
[2017-08-29] MEDS: *HR* OxyCODONE/APAP 5/325 TABLET PO PRN ×3 (09:03→22:44)
[2017-08-29] MEDS: ALPRAZolam 1 MG TABLET PO PRN ×2 (11:33→20:25)
[2017-08-29] MEDS: Nicotine 21 MG PATCH.TD24 TD SCH (11:33)
[2017-08-29] MEDS ORDERED: *HR* Morphine 2 MG/ML SYRINGE IVP ONE (13:00)
[2017-08-29 13:12] LABS: Basophils % 0.1 %; Hematocrit 26.6 % (35.3-44.9); Hemoglobin 8.2 g/dL (11.5-15.4); Immature Granulocytes % 0.5 % (0-4); Lymphocytes # 1.8 K/mcL (0.6-4.6); Lymphocytes % 15.2 %; Mean Corpuscular HGB Conc 30.8 g/dL (31.6-35.5); Mean Corpuscular Hemoglobin 23.8 pg (28.0-33.3); Mean Corpuscular Volume 77.3 fL (83.0-100.0); Mean Platelet Volume 8.7 fL (9.4-12.4); Monocytes # 0.6 K/mcL (0.0-1.3); Monocytes % 5.2 %; Neutrophils # 9.2 K/mcL (1.6-8.9); Platelet Count 437 K/mcL (140-400); Red Blood Count 3.44 M/mcL (3.82-4.97); Red Cell Distribution Width 15.7 % (11.5-14.5)
[2017-08-29 13:40] LABS: Alanine Aminotransferase 5 Units/L (7-52); Albumin 2.8 g/dL (3.5-5.7); Albumin/Globulin Ratio 1.1 (1.1-2.2); Alkaline Phosphatase 71 Units/L (34-104); Aspartate Amino Transferase 8 Units/L (13-39); BUN/Creatinine Ratio 12 (6-26); Bilirubin,Total 0.2 mg/dL (0.3-1.0); Blood Urea Nitrogen 9 mg/dL (6-20); Calcium 8.9 mg/dL (8.6-10.3); Carbon Dioxide 26 mEq/L (23-29); Chloride 106 mEq/L (98-107); Globulin 2.5 g/dL (2.4-3.5); Glucose 105 mg/dL (70-105); Osmolality,Calculated 281 (280-300); Potassium 4.3 mEq/L (3.5-5.1); Sodium 136 mEq/L (136-145); Total Protein 5.3 g/dL (6.4-8.9); eGFR For African Americans > 60 (> 60); eGFR For Non-African Americans > 60 (> 60)
--- NOTE | 2017-08-29 14:25 | General Surgery Progress Note ---
<Joe Seo - Last Filed: 08/29/17 14:22> Date of Encounter: 08/29/17 Time of Encounter: 09:45 - Assessment and Plan (1) Non-healing surgical wound Current Visit: Yes Status: Acute History of mari's gangrene s/p excisional debridement now with poorly healing wound; POD#2 s/p excisional biopsy of left gluteal wound cavity, wound washout, and placement of a wound vac. Wound VAC was plan to be changed today at bedside. However, the patient did not tolerate it well. It appears the vac is not functioning properly. Plan: Discontinue the wound vac and start calcium alginate with a secondary dressing of gauze and tape once a day. Plan for possible discharge tomorrow if home health can be arrange. If there are obstacles to her going home with a wound vac , then, if she has someone at home to assist with daily wet to dry dressing changes with 0.25% dakin's solution and kerlix, then she can go home with wet to dry dressing changes with plans for a wound vac placement in wound clinic. Qualifiers: Encounter type: initial encounter Qualified Code(s): T81.89XA - Other complications of procedures, not elsewhere classified, initial encounter Subjective Patient reports: still having pain, afebrile Narrative: The patient was seen and evaluated at bedside this morning. The patient states that she felt her buttock "was soaked and wet last night". The patient admits she still has pain. Patient denies any fever, headaches, vision changes, near syncope, chest pain, shortness of breath, difficult the breathing, blood in his stool, urinary symptoms, and any weaknesses. The patient admits having bowel movements. Objective Vital Signs - Last 8 Hours Temp Pulse Resp BP Pulse Ox 08/29/17 09:24 93 08/29/17 07:02 97.8 F 61 14 96/58 93 Intake and Output 08/28/17 08/29/17 08/29/17 23:59 07:59 15:59 Intake Total 100 / 100 Output Total 5 / 5 0 / 0 Balance -5 / -5 100 / 100 Intake: IV Fluids 100 / 100 Zosyn 3.375 GM In 0.9 % Sodium 100 / 100 Chloride (Mini-Bag +) 100 ML @ 25 mls/hr IVPB Q8HR [facility] Rx#: [id number] Output: Urine 0 / 0 Estimated Blood Loss 5 / 5 Other: Weight 52.707 kg Patient Weight 08/29/17 23:59 Weight 52.707 kg - General physical appearance well developed, well nourished, no distress - Eyes PERRL, normal ocular movement - ENT normal mucosa - Neck Neck exam: trachea midline - Respiratory normal expansion, normal respiratory effort, clear to auscultation - Cardiovascular Cardiovascular exam: Present: RRR, no murmurs/rubs/gallops - Abdomen Abdomen: Present: bowel sounds present, soft, non tender - Rectum other (poorly healing wound near the sacrum. Wound vac is poorly positioned. ) - Labs 08/29/17 13:01 08/29/17 13:01 Diabetes panel 08/29/17 Range/Units 13:01 Sodium 136 (136-145) mEq/L Potassium 4.3 (3.5-5.1) mEq/L Chloride 106 (98-107) mEq/L Carbon Dioxide 26 (23-29) mEq/L BUN 9 (6-20) mg/dL Creatinine 0.75 (0.60-1.20) mg/dL Glucose 105 (70-105) mg/dL Calcium 8.9 (8.6-10.3) mg/dL AST 8 L (13-39) Units/L ALT 5 L (7-52) Units/L Alkaline Phosphatase 71 (34-104) Units/L Albumin 2.8 L (3.5-5.7) g/dL Calcium panel 08/29/17 Range/Units 13:01 Calcium 8.9 (8.6-10.3) mg/dL Albumin 2.8 L (3.5-5.7) g/dL Pituitary panel 08/29/17 Range/Units 13:01 Sodium 136 (136-145) mEq/L Potassium 4.3 (3.5-5.1) mEq/L Chloride 106 (98-107) mEq/L Carbon Dioxide 26 (23-29) mEq/L BUN 9 (6-20) mg/dL Creatinine 0.75 (0.60-1.20) mg/dL Glucose 105 (70-105) mg/dL Calcium 8.9 (8.6-10.3) mg/dL Adrenal panel 08/29/17 Range/Units 13:01 Sodium 136 (136-145) mEq/L Potassium 4.3 (3.5-5.1) mEq/L Chloride 106 (98-107) mEq/L Carbon Dioxide 26 (23-29) mEq/L BUN 9 (6-20) mg/dL Creatinine 0.75 (0.60-1.20) mg/dL Glucose 105 (70-105) mg/dL Calcium 8.9 (8.6-10.3) mg/dL Total Bilirubin 0.2 L (0.3-1.0) mg/dL AST 8 L (13-39) Units/L ALT 5 L (7-52) Units/L Alkaline Phosphatase 71 (34-104) Units/L Albumin 2.8 L (3.5-5.7) g/dL - VTE Documentation of Mechanical Device: Intermittent pneumatic compression device Consult Discharge Plan - Plan Referrals: Johanna Keating [Primary Care Provider] - NONE,PCP [Family Provider] - <Rivas Villanueva - Last Filed: 08/30/17 13:09> Date of Encounter: 08/29/17 Objective Vital Signs - Last 8 Hours Temp Pulse Resp BP Pulse Ox 08/30/17 07:00 95 08/30/17 06:52 97.7 F 64 18 105/63 95 Intake and Output 08/29/17 08/30/17 08/30/17 23:59 07:59 15:59 Intake Total 0 / 0 Output Total 650 / 650 Balance -650 / -650 Intake: Oral 0 / 0 Output: Urine 650 / 650 Other: Weight 52.6 kg Patient Weight 08/30/17 23:59 Weight 52.6 kg - Labs 08/30/17 06:42 08/30/17 06:42 Diabetes panel 08/29/17 08/30/17 Range/Units 13:01 06:42 Sodium 136 139 (136-145) mEq/L Potassium 4.3 3.6 (3.5-5.1) mEq/L Chloride 106 108 H (98-107) mEq/L Carbon Dioxide 26 28 (23-29) mEq/L BUN 9 12 (6-20) mg/dL Creatinine 0.75 0.61 (0.60-1.20) mg/dL Glucose 105 95 (70-105) mg/dL Calcium 8.9 8.5 L (8.6-10.3) mg/dL AST 8 L (13-39) Units/L ALT 5 L (7-52) Units/L Alkaline Phosphatase 71 (34-104) Units/L Albumin 2.8 L (3.5-5.7) g/dL Calcium panel 08/29/17 08/30/17 Range/Units 13:01 06:42 Calcium 8.9 8.5 L (8.6-10.3) mg/dL Albumin 2.8 L (3.5-5.7) g/dL Pituitary panel 08/29/17 08/30/17 Range/Units 13:01 06:42 Sodium 136 139 (136-145) mEq/L Potassium 4.3 3.6 (3.5-5.1) mEq/L Chloride 106 108 H (98-107) mEq/L Carbon Dioxide 26 28 (23-29) mEq/L BUN 9 12 (6-20) mg/dL Creatinine 0.75 0.61 (0.60-1.20) mg/dL Glucose 105 95 (70-105) mg/dL Calcium 8.9 8.5 L (8.6-10.3) mg/dL Adrenal panel 08/29/17 08/30/17 Range/Units 13:01 06:42 Sodium 136 139 (136-145) mEq/L Potassium 4.3 3.6 (3.5-5.1) mEq/L Chloride 106 108 H (98-107) mEq/L Carbon Dioxide 26 28 (23-29) mEq/L BUN 9 12 (6-20) mg/dL Creatinine 0.75 0.61 (0.60-1.20) mg/dL Glucose 105 95 (70-105) mg/dL Calcium 8.9 8.5 L (8.6-10.3) mg/dL Total Bilirubin 0.2 L (0.3-1.0) mg/dL AST 8 L (13-39) Units/L ALT 5 L (7-52) Units/L Alkaline Phosphatase 71 (34-104) Units/L Albumin 2.8 L (3.5-5.7) g/dL - Attending Attestation I examined this patient and my medical decision-making was reviewed with the Resident Physician. I agree with the documented findings, disposition and treatment plan as described except to the extent set forth below. The patient is seen and evaluated on morning rounds today. Her wound VAC is 50 % dislodged with no suction. The black foam was not compressed. This is likely secondary to her continued position with direct pressure on the wound VAC as well as poor fixation in the gluteal crease and the perianal area. I spent some time talking with her today. She is very angry about this. I am going to place her on calcium alginate with a secondary dressing of gauze and tape and we will try again tomorrow for wound management. Maintain current therapy. Pain control is poor Rivas Villanueva MD FACS
[2017-08-29] MEDS: Gabapentin 400 MG CAPSULE PO SCH (20:25)
[2017-08-30] MEDS: *HR* Enoxaparin 40 MG/0.4 ML SYRINGE SQ SCH (05:21)
[2017-08-30 07:29] LABS: BUN/Creatinine Ratio 20 (6-26); Blood Urea Nitrogen 12 mg/dL (6-20); Calcium 8.5 mg/dL (8.6-10.3); Carbon Dioxide 28 mEq/L (23-29); Chloride 108 mEq/L (98-107); Glucose 95 mg/dL (70-105); Osmolality,Calculated 288 (280-300); Potassium 3.6 mEq/L (3.5-5.1); Sodium 139 mEq/L (136-145); eGFR For African Americans > 60 (> 60); eGFR For Non-African Americans > 60 (> 60)
[2017-08-30 07:41] LABS: Basophils % 0.3 %; Eosinophils # 0.2 K/mcL (0.0-0.6); Eosinophils % 3.2 %; Hematocrit 24.4 % (35.3-44.9); Hemoglobin 7.5 g/dL (11.5-15.4); Immature Granulocytes % 0.4 % (0-4); Lymphocytes # 2.6 K/mcL (0.6-4.6); Lymphocytes % 34.6 %; Mean Corpuscular HGB Conc 30.7 g/dL (31.6-35.5); Mean Corpuscular Hemoglobin 23.7 pg (28.0-33.3); Mean Platelet Volume 9.1 fL (9.4-12.4); Monocytes # 0.5 K/mcL (0.0-1.3); Monocytes % 6.8 %; Neutrophils # 4.1 K/mcL (1.6-8.9); Platelet Count 440 K/mcL (140-400); Red Blood Count 3.17 M/mcL (3.82-4.97); Red Cell Distribution Width 15.8 % (11.5-14.5); Segmented Neutrophils % 54.7 %
[2017-08-30] MEDS: Sennosides 8.6 MG TABLET PO SCH ×2 (08:51→20:48)
[2017-08-30] MEDS: *HR* OxyCODONE/APAP 5/325 TABLET PO PRN (08:51)
[2017-08-30] MEDS: Gabapentin 100 MG CAPSULE PO SCH (08:51)
[2017-08-30] MEDS: Nicotine 21 MG PATCH.TD24 TD SCH (08:52)
[2017-08-30] MEDS: *HR* Morphine Sulfate SR (12 HR) 15 MG TABLET.ER PO SCH ×2 (08:52→20:49)
[2017-08-30] MEDS ORDERED: *HR* FentaNYL PATCH 50 MCG PATCH TD SCH (11:00)
[2017-08-30] MEDS: ALPRAZolam 1 MG TABLET PO PRN ×2 (12:11→20:49)
--- NOTE | 2017-08-30 13:27 | General Surgery Progress Note ---
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 The patient did not tolerate changing her wound vac on 08/29/17. It appears the wound VAC yesterday was 50% dislodged with no suction. The black foam was not compressed. This is likely secondary to her continued position with direct pressure on the wound VAC as well as poor fixation in the gluteal crease and the perianal area. Plan: To attempt the wound vac again tomorroow. Continue calcium alginate with a secondary dressing of gauze and tape once a day. Pain control- Continue fentanyl patch. Percocet for breakthrough pain. Qualifiers: Encounter type: initial encounter Qualified Code(s): T81.89XA - Other complications of procedures, not elsewhere classified, initial encounter Subjective Patient reports: still having pain, tolerating a regular diet, bowel movement, afebrile Objective Vital Signs - Last 8 Hours Temp Pulse Resp BP Pulse Ox 08/30/17 07:00 95 08/30/17 06:52 97.7 F 64 18 105/63 95 Intake and Output 08/29/17 08/30/17 08/30/17 23:59 07:59 15:59 Intake Total 0 / 0 Output Total 650 / 650 Balance -650 / -650 Intake: Oral 0 / 0 Output: Urine 650 / 650 Other: Weight 52.6 kg Patient Weight 08/30/17 23:59 Weight 52.6 kg - General physical appearance well developed, well nourished, no distress - Eyes PERRL, normal ocular movement - ENT normal mucosa - Neck Neck exam: trachea midline - Respiratory normal expansion, normal respiratory effort, clear to auscultation - Cardiovascular Cardiovascular exam: Present: RRR, no murmurs/rubs/gallops - Abdomen Abdomen: Present: bowel sounds present, soft, non tender, wound (left gluteal wound cavity with drainage. No change from yesterday assessment.). Absent: distended, guarding, rebound - Incision Incision: Present: clean and dry, intact - Psychiatric oriented to time, oriented to person, oriented to place - Labs 08/30/17 06:42 08/30/17 06:42 Diabetes panel 08/29/17 08/30/17 Range/Units 13:01 06:42 Sodium 136 139 (136-145) mEq/L Potassium 4.3 3.6 (3.5-5.1) mEq/L Chloride 106 108 H (98-107) mEq/L Carbon Dioxide 26 28 (23-29) mEq/L BUN 9 12 (6-20) mg/dL Creatinine 0.75 0.61 (0.60-1.20) mg/dL Glucose 105 95 (70-105) mg/dL Calcium 8.9 8.5 L (8.6-10.3) mg/dL AST 8 L (13-39) Units/L ALT 5 L (7-52) Units/L Alkaline Phosphatase 71 (34-104) Units/L Albumin 2.8 L (3.5-5.7) g/dL Calcium panel 08/29/17 08/30/17 Range/Units 13:01 06:42 Calcium 8.9 8.5 L (8.6-10.3) mg/dL Albumin 2.8 L (3.5-5.7) g/dL Pituitary panel 08/29/17 08/30/17 Range/Units 13:01 06:42 Sodium 136 139 (136-145) mEq/L Potassium 4.3 3.6 (3.5-5.1) mEq/L Chloride 106 108 H (98-107) mEq/L Carbon Dioxide 26 28 (23-29) mEq/L BUN 9 12 (6-20) mg/dL Creatinine 0.75 0.61 (0.60-1.20) mg/dL Glucose 105 95 (70-105) mg/dL Calcium 8.9 8.5 L (8.6-10.3) mg/dL Adrenal panel 08/29/17 08/30/17 Range/Units 13:01 06:42 Sodium 136 139 (136-145) mEq/L Potassium 4.3 3.6 (3.5-5.1) mEq/L Chloride 106 108 H (98-107) mEq/L Carbon Dioxide 26 28 (23-29) mEq/L BUN 9 12 (6-20) mg/dL Creatinine 0.75 0.61 (0.60-1.20) mg/dL Glucose 105 95 (70-105) mg/dL Calcium 8.9 8.5 L (8.6-10.3) mg/dL Total Bilirubin 0.2 L (0.3-1.0) mg/dL AST 8 L (13-39) Units/L ALT 5 L (7-52) Units/L Alkaline Phosphatase 71 (34-104) Units/L Albumin 2.8 L (3.5-5.7) g/dL - VTE Documentation of Mechanical Device: Intermittent pneumatic compression device Consult Discharge Plan - Plan Referrals: Johanna Keating [Primary Care Provider] - NONE,PCP [Family Provider] - <Rivas Villanueva - Last Filed: 08/30/17 16:05> Date of Encounter: 08/30/17 Objective Vital Signs - Last 8 Hours Temp Pulse Resp BP Pulse Ox 08/30/17 15:36 97.9 F 74 18 102/59 97 Intake and Output 08/30/17 08/30/17 08/30/17 07:59 15:59 23:59 Intake Total 0 / 0 240 / 240 Output Total 650 / 650 Balance -650 / -650 240 / 240 Intake: Oral 0 / 0 240 / 240 Output: Urine 650 / 650 Other: Meal Lunch Percent of Meal Consumed 100% # Voids 1 Weight 52.6 kg Patient Weight 08/30/17 23:59 Weight 52.6 kg - Labs 08/30/17 06:42 08/30/17 06:42 Diabetes panel 08/30/17 Range/Units 06:42 Sodium 139 (136-145) mEq/L Potassium 3.6 (3.5-5.1) mEq/L Chloride 108 H (98-107) mEq/L Carbon Dioxide 28 (23-29) mEq/L BUN 12 (6-20) mg/dL Creatinine 0.61 (0.60-1.20) mg/dL Glucose 95 (70-105) mg/dL Calcium 8.5 L (8.6-10.3) mg/dL Calcium panel 08/30/17 Range/Units 06:42 Calcium 8.5 L (8.6-10.3) mg/dL Pituitary panel 08/30/17 Range/Units 06:42 Sodium 139 (136-145) mEq/L Potassium 3.6 (3.5-5.1) mEq/L Chloride 108 H (98-107) mEq/L Carbon Dioxide 28 (23-29) mEq/L BUN 12 (6-20) mg/dL Creatinine 0.61 (0.60-1.20) mg/dL Glucose 95 (70-105) mg/dL Calcium 8.5 L (8.6-10.3) mg/dL Adrenal panel 08/30/17 Range/Units 06:42 Sodium 139 (136-145) mEq/L Potassium 3.6 (3.5-5.1) mEq/L Chloride 108 H (98-107) mEq/L Carbon Dioxide 28 (23-29) mEq/L BUN 12 (6-20) mg/dL Creatinine 0.61 (0.60-1.20) mg/dL Glucose 95 (70-105) mg/dL Calcium 8.5 L (8.6-10.3) mg/dL - Attending Attestation I examined this patient and my medical decision-making was reviewed with the Resident Physician. I agree with the documented findings, disposition and treatment plan as described except to the extent set forth below. The patient is seen and evaluated on morning rounds with the resident. She continues to complain bitterly of pain in the left thigh femur excision site and at the nonhealing surgical wound site on the left gluteal and sacral area. Her pain control is poor. She uses narcotic on a daily basis and I think it is completely reasonable to start her on a fentanyl patch. We a long talk today about her wound. We will try to get a wound VAC tomorrow but she may be left with a chronic nonhealing wound. I think that she should proceed with radiation therapy on the right thigh. Rivas Villanueva MD FACS
[2017-08-30] MEDS: Gabapentin 400 MG CAPSULE PO SCH (20:49)
[2017-08-30] MEDS: *HR* OxyCODONE/APAP 10/325 TABLET PO PRN (20:49)
[2017-08-31] MEDS: *HR* Enoxaparin 40 MG/0.4 ML SYRINGE SQ SCH (05:39)
[2017-08-31] MEDS: *HR* OxyCODONE/APAP 10/325 TABLET PO PRN ×3 (06:07→22:04)
[2017-08-31] MEDS: Sennosides 8.6 MG TABLET PO SCH ×2 (07:47→21:58)
[2017-08-31] MEDS: *HR* Morphine Sulfate SR (12 HR) 15 MG TABLET.ER PO SCH ×2 (07:47→21:59)
[2017-08-31] MEDS: Gabapentin 100 MG CAPSULE PO SCH ×2 (07:48→16:03)
[2017-08-31] MEDS: Nicotine 21 MG PATCH.TD24 TD SCH (07:48)
[2017-08-31] MEDS ORDERED: *HR* HYDROmorphone (PF) 1 MG/ML SYRINGE IVP ONE (12:01)
[2017-08-31] MEDS: ALPRAZolam 1 MG TABLET PO PRN ×2 (12:09→22:04)
--- NOTE | 2017-08-31 12:12 | General Surgery Progress Note ---
<Lelo Curry - Last Filed: 08/31/17 12:09> Date of Encounter: 08/31/17 Time of Encounter: 12:00 - Assessment and Plan (1) Non-healing surgical wound Current Visit: Yes Status: Acute POD #3 excisional biopsy of left gluteal wound cavity, wound washout, and placement of a wound vac with Dr. Wang Supportive care and pain control Replace wound vac today Dr. Villanueva discussed proceeding with radiation therapy with Dr. Garza Qualifiers: Encounter type: subsequent encounter Qualified Code(s): T81.89XD - Other complications of procedures, not elsewhere classified, subsequent encounter (2) Depression with anxiety Current Visit: Yes Status: Acute Start Zoloft today Continue Xanax prn for now Subjective Patient reports: no new complaints, feels better, still having pain, pain is less, voiding w/o difficulty, afebrile Objective Vital Signs - Last 8 Hours Temp Pulse Resp BP Pulse Ox 08/31/17 10:28 98.3 F 84 15 101/65 98 08/31/17 07:57 98.3 F 72 16 98/60 95 Intake and Output 08/30/17 08/31/17 08/31/17 23:59 07:59 15:59 Intake Total 440 / 440 550 / 550 240 / 240 Balance 440 / 440 550 / 550 240 / 240 Intake: Oral 440 / 440 550 / 550 240 / 240 Other: Meal Dinner Breakfast Percent of Meal Consumed 75% 100% # Voids 2 1 Weight 54.703 kg Patient Weight 08/31/17 23:59 Weight 54.703 kg - General physical appearance well developed, no distress, chronically ill - Eyes normal ocular movement - ENT normal mucosa, atraumatic, normocephalic - Neck Neck exam: trachea midline - Respiratory normal respiratory effort, clear to auscultation - Cardiovascular Cardiovascular exam: Present: RRR - Abdomen Abdomen: Present: bowel sounds present, soft, non tender - Incision Incision: Present: serous (moderate amount of serous drainage noted without odor ), open (gluteal wound without surrounding erythema or induration) - Neurologic CN 2-12 grossly intact - Psychiatric oriented to time, oriented to person, oriented to place, speech is normal, memory intact - Labs 08/30/17 06:42 08/30/17 06:42 - VTE Documentation of Mechanical Device: Intermittent pneumatic compression device Consult Discharge Plan - Plan Instructions: Negative Pressure Wound Therapy (DC) Additional Instructions: 1. No pushing, pulling, or lifting greater than 15 lbs for 4 weeks (depending upon procedure). 2. You may shower beginning today, but no tub baths, soaking, or swimming for 2 weeks. 3. You may resume driving when you are off narcotics and are safe to react in a car. 4. Take ibuprofen every 8 hours for discomfort. If this does not relieve discomfort, you may take the as needed Percocet. Take narcotics as directed. Do not take more narcotics then directed and do not share your narcotics with any other person. Do not drink alcohol while on narcotics. 5. Take stool softeners (Colace) or a water based laxative (Miralax) while taking narcotics. You may hold for loose stools. 6. Report any fevers greater than 100.5F, increase abdominal discomfort, drainage that looks like pus, increased redness or pain at the surgical site, or any vomiting. 7. Report any pain in the calves, shortness of breath, or rapid heartbeat. 8. Follow-up in the office as directed. 9. If you were prescribed antibiotics, do not stop them without talking to your provider. Referrals: Álvaro Wang MD [Non-Partnered Physician] - 09/08/17 2:00 pm (Nurse visit on 09/08/17 at 2:00 p.m for wound vac change.) Naif Watkins MD [Partnered Physician] - 09/04/17 1:30 pm Prescriptions: ALPRAZolam [Xanax 1 MG Tablet] 1 mg PO TID PRN 10 Days #30 tablet PRN Reason: Anxiety FentaNYL PATCH [Duragesic] 50 mcg TD Q72H 7 Days #2 patch.td72 - Attending Attestation For this encounter, I have reviewed the MANAGER OF BUSINESS or PA documentation, treatment plan, and medical decision making; and I have had face to face time with this patient. <Rivas Villanueva - Last Filed: 09/01/17 16:28> Date of Encounter: 08/31/17 Objective Vital Signs - Last 8 Hours Temp Pulse Resp BP Pulse Ox 09/01/17 11:27 98.7 F 77 14 100/65 93 Intake and Output 09/01/17 09/01/1709/01/18 07:59 15:59 23:59 Intake Total 0 / 0 1080 / 1080 Output Total 50 / 50 Balance -50 / -50 1080 / 1080 Intake: Oral 0 / 0 1080 / 1080 Output: Urine 0 / 0 Wound Drainage 50 / 50 Buttock 50 / 50 Other: Meal Lunch Percent of Meal Consumed 100% Weight 54.658 kg Patient Weight 09/01/17 23:59 Weight 54.658 kg - Labs 08/30/17 06:42 08/30/17 06:42 - Attending Attestation The patient is seen and evaluated on morning rounds. Findings are discussed with the clinical nurse practitioner. She has been started on fentanyl. 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 We will plan to use wound VAC. If this is successful overnight she will be discharged. Riavs Villanueva NMD FACS
[2017-08-31] MEDS: Gabapentin 400 MG CAPSULE PO SCH (22:00)
[2017-09-01] MEDS: *HR* OxyCODONE/APAP 10/325 TABLET PO PRN ×2 (05:43→12:22)
[2017-09-01] MEDS: *HR* Enoxaparin 40 MG/0.4 ML SYRINGE SQ SCH (05:43)
[2017-09-01] MEDS: Sennosides 8.6 MG TABLET PO SCH (07:38)
[2017-09-01] MEDS: *HR* Morphine Sulfate SR (12 HR) 15 MG TABLET.ER PO SCH (07:39)
[2017-09-01] MEDS: Nicotine 21 MG PATCH.TD24 TD SCH (07:41)
--- NOTE | 2017-09-01 07:56 | General Surgery Progress Note ---
<Alyssia Seo-Ebony - Last Filed: 09/01/17 08:14> Date of Encounter: 09/01/17 Time of Encounter: 07:15 - Assessment and Plan (1) Non-healing surgical wound Status: Acute POD#4 s/p excisional biopsy of left gluteal wound cavity, wound washout, and placement of a wound vac . 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 Patient tolerated it well. Plan: Continue the wound vac Supportive care Pain control- Continue fentanyl patch. Percocet for breakthrough pain. Will have CHILD CARE SUPERVISOR reevaluate the wound vac Plan for discharge today. Qualifiers: Encounter type: subsequent encounter Qualified Code(s): T81.89XD - Other complications of procedures, not elsewhere classified, subsequent encounter (2) Depression with anxiety Status: Acute Continue Zoloft Continue Xanax PRN. Do not add any additional medications unless specified by physician duet to fentanyl patch initiation. Subjective Patient reports: no new complaints, feels better, pain is less, tolerating a regular diet, flatus, bowel movement, afebrile Narrative: The patient was seen and evaluated at bedside this morning. The patient was awake, alert, interactive, afebrile, and appears in no acute distress. The patient states that she feels "amazing." The patient admits that the pain is well controlled. The patient states that the wound VAC was placed yesterday and she tolerated procedure well. She stated that overnight there was access drainage and that "I did not wake up soak and wet." Patient states that she is prepared to return home today if possible. However, she states that she is willing to stay another day if that is what the physicians recommend. The patient denies any fever, headaches, vision changes, near syncope, chest pain, shortness of breath, abdominal pain, changes in bowel movements, nausea vomiting , urinary symptoms, numbness and tingling, and any weaknesses. The patient has no other concerns at this time. Objective Vital Signs - Last 8 Hours Temp Pulse Resp BP Pulse Ox 09/01/17 07:03 98.6 F 73 16 101/64 93 09/01/17 04:14 98.6 F 73 14 95/60 92 Intake and Output 08/31/17 08/31/1709/01/18 15:59 23:59 07:59 Intake Total 360 / 360 0 / 0 0 / 0 Output Total 50 / 50 Balance 360 / 360 0 / 0 -50 / -50 Intake: Oral 360 / 360 0 / 0 0 / 0 Output: Urine 0 / 0 Wound Drainage 50 / 50 Buttock 50 / 50 Other: Meal Lunch Percent of Meal Consumed 80% # Voids 1 1 Weight 54.658 kg Patient Weight 09/01/17 23:59 Weight 54.658 kg - General physical appearance well developed, well nourished, no distress - Eyes PERRL, normal ocular movement - ENT normal mucosa - Neck Neck exam: trachea midline - Respiratory normal expansion, normal respiratory effort, clear to auscultation - Cardiovascular Cardiovascular exam: Present: RRR, no murmurs/rubs/gallops - Abdomen Abdomen: Present: bowel sounds present, soft, non tender - Incision Incision: Present: open (Left gluteal wound without surrounding erythema or induration. Wound vac in position) - Integumentary no rash - Neurologic CN 2-12 grossly intact - Psychiatric oriented to time, oriented to person, oriented to place - Labs 08/30/17 06:42 08/30/17 06:42 - VTE Documentation of Mechanical Device: Intermittent pneumatic compression device Consult Discharge Plan - Plan Instructions: Negative Pressure Wound Therapy (DC) Additional Instructions: 1. No pushing, pulling, or lifting greater than 15 lbs for 4 weeks (depending upon procedure). 2. You may shower beginning today, but no tub baths, soaking, or swimming for 2 weeks. 3. You may resume driving when you are off narcotics and are safe to react in a car. 4. Take ibuprofen every 8 hours for discomfort. If this does not relieve discomfort, you may take the as needed Percocet. Take narcotics as directed. Do not take more narcotics then directed and do not share your narcotics with any other person. Do not drink alcohol while on narcotics. 5. Take stool softeners (Colace) or a water based laxative (Miralax) while taking narcotics. You may hold for loose stools. 6. Report any fevers greater than 100.5F, increase abdominal discomfort, drainage that looks like pus, increased redness or pain at the surgical site, or any vomiting. 7. Report any pain in the calves, shortness of breath, or rapid heartbeat. 8. Follow-up in the office as directed. 9. If you were prescribed antibiotics, do not stop them without talking to your provider. Referrals: Ávlaro Wang MD [Non-Partnered Physician] - 09/08/17 2:00 pm (Nurse visit on 09/08/17 at 2:00 p.m for wound vac change.) Naif Watkins MD [Partnered Physician] - 09/04/17 1:30 pm Prescriptions: ALPRAZolam [Xanax 1 MG Tablet] 1 mg PO TID PRN 10 Days #30 tablet PRN Reason: Anxiety FentaNYL PATCH [Duragesic] 50 mcg TD Q72H 7 Days #2 patch.td72 <Rivas Villanueva - Last Filed: 09/01/17 16:36> Date of Encounter: 09/01/17 Objective Vital Signs - Last 8 Hours Temp Pulse Resp BP Pulse Ox 09/01/17 11:27 98.7 F 77 14 100/65 93 Intake and Output 09/01/17 09/01/17 09/01/17 07:59 15:59 23:59 Intake Total 0 / 0 1080 / 1080 Output Total 50 / 50 Balance -50 / -50 1080 / 1080 Intake: Oral 0 / 0 1080 / 1080 Output: Urine 0 / 0 Wound Drainage 50 / 50 Buttock 50 / 50 Other: Meal Lunch Percent of Meal Consumed 100% Weight 54.658 kg Patient Weight 09/01/17 23:59 Weight 54.658 kg - Labs 08/30/17 06:42 08/30/17 06:42 - Attending Attestation The patient is seen and evaluated on morning rounds with the resident. She should be ready for discharge later today. She had successful pain control fentanyl patch and I would maintain this for continuous outpatient therapy. I discussed her case with oncology and have recommended early institution of radiation therapy Rivas Villanueva MD FACS
[2017-09-01] MEDS ORDERED: Gabapentin 100 MG CAPSULE PO SCH (09:00)
--- NOTE | 2017-09-01 10:29 | Discharge Summary ---
Orders not resulted at time of discharge: Pending orders 08/28/17 19:14 Surgical Pathology [PTH] Routine Date of Encounter: 09/01/17 Time of Encounter: 07:15 - Discharge Diagnosis (1) Non-healing surgical wound Priority: Primary Status: Acute Qualifiers: Encounter type: subsequent encounter Qualified Code(s): T81.89XD - Other complications of procedures, not elsewhere classified, subsequent encounter (2) Depression with anxiety Priority: Secondary Status: Acute General Surgery Exam Initial Vital Signs Temp Pulse Resp BP Pulse Ox 98.7 F 91 18 106/70 97 08/27/17 12:58 08/27/17 12:58 08/27/17 12:58 08/27/17 12:58 08/27/17 12:58 - General physical appearance well developed, well nourished, no distress - Eyes PERRL, normal ocular movement - ENT normal mucosa - Neck trachea midline - Respiratory normal expansion, normal respiratory effort, clear to auscultation - Cardiovascular Cardiovascular exam: Present: RRR, no murmurs/rubs/gallops - Abdomen Abdomen general surgery: Present: bowel sounds present, soft, non tender Hernia: Present: none - Incision Incision: Present: open (Left gluteal wound without surrounding erythema or induration. Wound vac in position) - Integumentary Integumentary general surgery: Present: warm and dry, no abnormal pigmentation - Neurologic Present: CN 2-12 grossly intact - Psychiatric Psychiatric general surgery: Present: appropriate, oriented to person, oriented to place, oriented to time - Hospital Course Hospital course: Ms. Zacarias is a 56 year old female with a history of mari's gangrene s/p excisional debridement now with poorly healing wound. The patient is POD 4 s/p excisional biopsy of left gluteal wound cavity, wound washout, and placement of a wound vac. On 08/29/17, the patient did not tolerate changing her wound vac very well. It appeared the wound VAC was 50% dislodged with no suction. The black foam was not compressed. This was likely secondary to her continued position with direct pressure on the wound VAC as well as poor fixation in the gluteal crease and the perianal area. The wound vac was then discontinued and calcium alginate was ordered with a secondary dressing of gauze and tape once a day. The wound vac was then replaced on 08/31/2017. Patient tolerated well. Dr. Villanueva discuss proceeding with radiation therapy with her oncologist. Patient verbalized understanding. Today the patient appears well and in no acute distress. Patient states that her pain is well controlled. The patient states that she is prepared to return home. Patient denies any fever, headaches, vision changes, near syncope, chest pain, shortness of breath, difficulty breathing, constipation, diarrhea, urinary symptoms, and any weaknesses. Patient was instructed to follow up with his primary care physician within one week. Patient was instructed to follow-up in the surgery outpatient clinic. Patient demonstrate verbal understanding. Patient has no other concerns at this time. - Time Spent with Patient Total time spent providing and/or coordinating discharge services: - Discharge Medications Prescriptions: ALPRAZolam [Xanax 1 MG Tablet] 1 mg PO TID PRN 10 Days #30 tablet PRN Reason: Anxiety FentaNYL PATCH [Duragesic] 50 mcg TD Q72H 7 Days #2 patch.td72 Home Medications: Acetaminophen [Acetaminophen ER] 650 mg PO Q6H PRN 07/28/17 [History] Gabapentin [Neurontin] 200 mg PO 0900,1500 07/28/17 [History] Gabapentin [Neurontin] 400 mg PO HS 07/28/17 [History] Morphine Sulfate [Arymo ER] 15 mg PO BID 07/28/17 [History] Pantoprazole Sodium [Protonix] 40 mg PO DAILY 07/28/17 [History] Sennosides [Laxative] 17.2 mg PO BID 07/28/17 [History] OxyCODONE/APAP 5/325 [Percocet 5/325 MG] 1 each PO Q8H PRN 30 Days #90 tablet [Rx] Zolpidem [Ambien] 10 mg PO HS 30 Days #30 tablet 08/20/17 [Rx] ALPRAZolam [Xanax 1 MG Tablet] 1 mg PO TID PRN 08/27/17 [History] ALPRAZolam [Xanax 1 MG Tablet] 1 mg PO TID PRN 10 Days #30 tablet 09/01/17 [Rx] FentaNYL PATCH [Duragesic] 50 mcg TD Q72H 7 Days #2 patch.td72 09/01/17 [Rx] Allergies/Adverse Reactions: 3 Allergy/AdvReac Type Severity Reaction Status Date / Time acetaminophen [From [facility]] AdvReac Gastrointestinal Verified 08/27/17 17:46 Upset hydrocodone [From [facility]] AdvReac Gastrointestinal Verified 08/27/17 17:46 Upset Date of admission: 08/27/17 17:19 Primary care physician: Johanna Keating Consults: 08/29/17 10:45 Consult to Music Historian [CONS] Routine Reason for SW Consult: needs wound vac and HH Discharging clinician: Joe Seo Anticipated date of discharge: 09/01/17 - Patient Status Disposition: Home Health Service Condition: Good Functional capacity at discharge: independent ambulation Overall status at discharge: patient is progressing back to baseline - Discharge Instructions Instructions: Negative Pressure Wound Therapy (DC) Follow Up With: Álvaro Wang MD [Non-Partnered Physician] - 09/08/17 2:00 pm (Nurse visit on 09/08/17 at 2:00 p.m for wound vac change.) Additional Instructions: 1. No pushing, pulling, or lifting greater than 15 lbs for 4 weeks (depending upon procedure). 2. You may shower beginning today, but no tub baths, soaking, or swimming for 2 weeks. 3. You may resume driving when you are off narcotics and are safe to react in a car. 4. Take ibuprofen every 8 hours for discomfort. If this does not relieve discomfort, you may take the as needed Percocet. Take narcotics as directed. Do not take more narcotics then directed and do not share your narcotics with any other person. Do not drink alcohol while on narcotics. 5. Take stool softeners (Colace) or a water based laxative (Miralax) while taking narcotics. You may hold for loose stools. 6. Report any fevers greater than 100.5F, increase abdominal discomfort, drainage that looks like pus, increased redness or pain at the surgical site, or any vomiting. 7. Report any pain in the calves, shortness of breath, or rapid heartbeat. 8. Follow-up in the office as directed. 9. If you were prescribed antibiotics, do not stop them without talking to your provider. - Diet and Activity Activity: increase activity as tolerated Diet: advance to your usual diet
[2017-09-01 11:33] VITALS: BP 100/65
[2017-09-01] MEDS: ALPRAZolam 1 MG TABLET PO PRN (12:22)
[2017-09-01] MEDS: Gabapentin 100 MG CAPSULE PO SCH (13:01)
--- NOTE | 2017-09-01 13:52 | Physician Discharge Referral ---
<Alyssia Seo-My - Last Filed: 09/01/17 13:50> Home Health/Hosp Referral Info Transfer to: Home Health Provider in Charge Post Discharge: PCP - Diagnosis (1) Non-healing surgical wound Priority: Primary Status: Acute (2) Depression with anxiety Priority: Secondary Status: Acute - Respiratory Orders Smoking Cessation: Smoking cessation has been advised. For more information, call the [place] Tobacco Quit Line at 7-964-IZMI-NOW. - Dressing/Wound Care Site: Left gluteal - Services Needed Following services are medically necessary services: Nursing - Transfer Medications Prescriptions: ALPRAZolam [Xanax 1 MG Tablet] 1 mg PO TID PRN 10 Days #30 tablet PRN Reason: Anxiety FentaNYL PATCH [Duragesic] 50 mcg TD Q72H 7 Days #2 patch.[id number] Home Medications: Acetaminophen [Acetaminophen ER] 650 mg PO Q6H PRN 07/28/17 [History] Gabapentin [Neurontin] 200 mg PO 0900,1500 07/28/17 [History] Gabapentin [Neurontin] 400 mg PO HS 07/28/17 [History] Morphine Sulfate [Arymo ER] 15 mg PO BID 07/28/17 [History] Pantoprazole Sodium [Protonix] 40 mg PO DAILY 07/28/17 [History] Sennosides [Laxative] 17.2 mg PO BID 07/28/17 [History] OxyCODONE/APAP 5/325 [Percocet 5/325 MG] 1 each PO Q8H PRN 30 Days #90 tablet [Rx] Zolpidem [Ambien] 10 mg PO HS 30 Days #30 tablet 08/20/17 [Rx] ALPRAZolam [Xanax 1 MG Tablet] 1 mg PO TID PRN 08/27/17 [History] ALPRAZolam [Xanax 1 MG Tablet] 1 mg PO TID PRN 10 Days #30 tablet 09/01/17 [Rx] FentaNYL PATCH [Duragesic] 50 mcg TD Q72H 7 Days #2 patch.td72 09/01/17 [Rx] Allergies/Adverse Reactions: 3 Allergy/AdvReac Type Severity Reaction Status Date / Time acetaminophen [From [place]] AdvReac Gastrointestinal Verified 08/27/17 17:46 Upset hydrocodone [From [place]] AdvReac Gastrointestinal Verified 08/27/17 17:46 Upset Certification: Further, I certify that my clinical findings support that this patient is homebound (i.e. absences from home require considerable and taxing effort and are for medical reasons or taoist services or infrequently or short duration when for other reasons) because: Homebound Reason: Patient requires assistance of a person or device to safely leave home Attestation: My signature below is to certify that this patient is under my care and that I, or nurse practitioner, or a physician's assistant women's soccer coach working with me, has a face-to -face encounter with this patient. <Lelo Curry - Last Filed: 09/01/17 15:18> - Diagnosis (1) Non-healing surgical wound Status: Acute (2) Depression with anxiety Status: Acute - Respiratory Orders Smoking Cessation: Smoking cessation has been advised. For more information, call the [place] Mailing Line at 3-185-SGLYNOW. - Dressing/Wound Care Type of Dressing/Treatments w/Frequency: Wound vac to left gluteal fold- cleanse with soap and water in the shower every M-W-F. Apply medium black foam to wound bed, use stoma paste to seal around the anus, apply vac to 125mmHG continuous suction. Change dressing every M-W-F and prn if soiled per home health care. Certification: Further, I certify that my clinical findings support that this patient is homebound (i.e. absences from home require considerable and taxing effort and are for medical reasons or taoist services or infrequently or short duration when for other reasons) because: Attestation: My signature below is to certify that this patient is under my care and that I, or nurse practitioner, or a physician's assistant women's soccer coach working with me, has a face-to -face encounter with this patient. <Rivas Villanueva - Last Filed: 09/01/17 16:41> - Respiratory Orders Smoking Cessation: Smoking cessation has been advised. For more information, call the [employer] Quit Line at 8-802-HLOU-NOW. Certification: Further, I certify that my clinical findings support that this patient is homebound (i.e. absences from home require considerable and taxing effort and are for medical reasons or taoist services or infrequently or short duration when for other reasons) because: Attestation: My signature below is to certify that this patient is under my care and that I, or nurse practitioner, or a physician's assistant women's soccer coach working with me, has a face-to -face encounter with this patient. The patient is seen and evaluated on morning rounds with resident. Information shared with the clinical nurse practitioner. Patient is ready for discharge Rivas Villanueva MD FACS
== END 2017-09-01 16:30 | disposition home health service (06) | DRG 721 ==
LOC: SAMDAY 12:20 → 3NENU 17:19 → 3ANU 08-28 12:30
PROVIDERS: ADMIT Surgery; ATTEND Surgery

== ENCOUNTER 2018-03-15 17:24 | Inpatient (IN) ==
[2018-03-15] MEDS ORDERED: Ipratropium/Albuterol Neb 3 ML IH ONE (17:45)
[2018-03-15] MEDS ORDERED: 0.9 % Sodium Chloride 1,000 ML IVC ONE (17:45)
[2018-03-15] MEDS ORDERED: Isovue-370 500 ML INFUS..BTL IV ONE (17:46)
--- NOTE | 2018-03-15 17:53 | Emergency Department Note ---
Disposition Clinical Impression: Hypoxia Lung cancer Qualifiers: Laterality: unspecified laterality Lung location: unspecified part of lung Qualified Code(s): C34.90 - Malignant neoplasm of unspecified part of unspecified bronchus or lung Pneumonia Qualifiers: Pneumonia type: due to unspecified organism Laterality: left Lung location: lower lobe of lung Qualified Code(s): J18.1 - Lobar pneumonia, unspecified organism Sepsis Qualifiers: Sepsis type: sepsis due to unspecified organism Qualified Code(s): A41.9 - Sepsis, unspecified organism Disposition: Admitted As Inpatient Condition: Fair Referrals: NONE,PCP [Family Provider] - Naif Watkins MD [Primary Care Provider] - Forms: ED Satisfaction Letter SOB HPI - General Chief Complaint: ED Shortness of Breath/Dyspnea Stated Complaint: DAYAN Time Seen by Provider: 03/15/18 17:35 Source: patient, EMS Mode of arrival: EMS Limitations: no limitations Nursing Notes Reviewed: Yes Vital Signs Reviewed: Yes - History of Present Illness 57-year-old female history of lung cancer with metastatic disease presents for evaluation of shortness of breath. Patient is currently receiving chemotherapy every 2 weeks. Last treatment was 2 weeks ago. Notes persistent cough and shortness of breath over the past few days. Denies any chest pain. Cough is noted be productive. Also notes rhinorrhea. No abdominal pain. No nausea or vomiting. Patient does not have oxygen at home. Patient does live at home by herself. No abdominal pain. No history of blood clots or lungs. No history of PEs or DVTs. Patient also states she has had ulcers on her back which appeared to manage by Dr. Wang year which are improving. They are also concerned because the patient had decreased by mouth intake and decreased appetite. Patient does have advanced directives and states that she would want intubation if respiratory status declined. - Related Data Home Medications Medication Instructions Recorded Confirmed ALPRAZolam [Xanax 1 MG Tablet] 1 mg PO BID PRN 08/27/17 03/15/18 Citalopram [CeleXA] 20 mg PO DAILY 09/11/17 03/15/18 Previous Rx's Medication Instructions Recorded Promethazine [Phenergan] 25 mg PO Q6HR PRN #30 tablet 11/18/17 Sennosides [Senokot] 8.6 mg PO BID #60 tablet 11/25/17 Gabapentin [Neurontin] 600 mg PO TID #90 tablet 01/28/18 Pantoprazole Sodium [Protonix] 40 mg PO DAILY #30 tablet. 01/28/18 Oxycodone HCl 5 - 10 mg PO Q6H PRN 30 Days #180 02/17/18 tablet Oxycodone HCl [Oxycontin] 80 mg PO BID 30 Days #120 02/17/18 tab.er.12h Zolpidem [Ambien] 10 mg PO HS 30 Days #30 tablet 02/17/18 Allergies Allergy/AdvReac Type Severity Reaction Status Date / Time hydrocodone [From [facility]] AdvReac Gastrointestinal Verified 01/21/18 09:06 Upset All systems ED: reviewed and negative except as stated. 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 Absent : tenderness - Respiratory Respiratory exam: Present: accessory muscle use, other (Diffusely diminished with prominent left upper lung sounds). Absent: respiratory distress - Cardiovascular Cardiovascular exam: Present: regular rate, normal rhythm. Absent: systolic murmur - Abdominal Exam Abdominal exam: Present: soft, Non-Tender - Rectal Exam Rectal exam: Present: other (Patient has 2 superficial decub ulcers appear to be well-healing. Bandage in place. No surrounding erythema.) - Extremities Exam Extremities exam: Present: normal inspection. Absent: pedal edema - Expanded Lower Extremity Exam Hip/Pelvis exam: Present: other (Patient does have a nodule on the right posterior lateral thigh. No erythema or crepitus. Appears to be hard to palpation. Patient states this is where she has had her hardware in place before.) Neurovascular/Tendon exam: Present: normal capillary refill - Back Exam Back exam: Present: normal inspection - Neurological Exam Neurological exam: Present: alert, oriented X3, CN II-XII intact - Skin Skin exam: Present: warm, dry, intact, normal color Course Course Narrative: Patient presents for evaluation shortness of breath. Patient is concerning for immunosuppression given her recent chemotherapy. Patient will get basic labs including a chest x-ray EKG. Patient also need more advanced imaging with CT of the chest to ensure there are no blood clots. Disposition likely admission. - Reevaluation(s) Reevaluation #1: Patient initial labs are returning. Patient has a leukocytosis. Concerning for sepsis. Patient will be started on the most appropriate empiric antibiotics covering pulmonary pathology. Time: 18:31 Reevaluation #2: Patient does have a positive troponin. Patient continues to deny any chest pain. Patient's breathing did not improve after the one neb. Discussed x-ray findings with the patient family at bedside. Patient started on empiric antibiotic therapy. Time: 18:42 Reevaluation #3: Patient will be given appropriate pain medication. Time: 19:28 Additional Reevaluation(s): 1930: Patient sepsis reassessment continues to show good perfusion. Brisk cap refill. Lung exam is unchanged. 1940: Patient's repeat EKG shows normal sinus rhythm with T-wave inversion in V1 and V3. No ST elevation. 21:27: Updated hospitalist on the patient's CT of the thigh. They will be down to evaluate the patient. This is consistent with over the patient's prior metastatic disease is. - Consultations Consultation #1: Spoke with Dr. Russo regarding the EKG as well as the elevated troponin. If concerned may start anticoagulation and trend troponins if there is overall clinical picture appears to be infectious in pulmonary and not primary ACS. Time: 19:08 Vital Signs Temperature 98.1 F 03/15/18 17:29 Pulse Rate 78 03/15/18 17:29 Respiratory Rate 21 03/15/18 17:29 Blood Pressure 150/87 03/15/18 17:29 O2 Sat by Pulse Oximetry 94 03/15/18 17:29 Temperature 98.1 F 03/15/18 17:29 Pulse Rate 72 10/01/18 18:44 Respiratory Rate 20 03/15/18 18:44 Blood Pressure 144/84 03/15/18 18:44 O2 Sat by Pulse Oximetry 95 03/15/18 18:46 Oxygen Delivery Oxygen Delivery Nasal Cannula Shortness of Breath/Dyspnea - MDM Narrative Medical decision making narrative: Patient with a history of lung cancer with metastatic disease presents for evaluation of dyspnea. Patient does have an os requirement on presentation. Patient does meet surgical criteria and is classified sepsis with a likely source in the lungs. Patient started the most appropriate broad-spectrum antibiotics. Patient was not given the 30 mL/kg fluid bolus given an elevated troponin with elevated BNP. Patient will likely need gradual fluid titration. Patient did get a CT [place] chest as there was concerns of PE in a high-risk patient with lung cancer and hypoxia. Patient's overall clinical exam appears to be infectious with left lower lobe pneumonia. Patient's elevated troponin was discussed with cardiology. Patient serial EKG does not show any signs of ST elevation. Patient was given an aspirin. Patient was anticoagulation with elevated troponin as the patient doesn't have contraindication to anticoagulation. Serial troponins can be obtained. Patient's BNP is also elevated. Patient is continued to produce urine. Patient later was complaining of right hip pain where her metastatic disease resides. Patient ultimately got CT imaging of the abdomen pelvis with extension of the right hip. Chest X-Ray 03/15/18 17:45 IMPRESSION: Left lower lobe opacification appears new compared to PET-CT of 01/27/2018. Pneumonia is considered. D/ / Chris Torres / Chris Torres Interpreting Provider: Chris Torres 1855 hrs.: Patient does have a pneumonia on chest x-ray we are going to get a CT scan to rule out PE. She does have a leukocytosis. Chest X-Ray 03/15/18 17:45 IMPRESSION: Left lower lobe opacification appears new compared to PET-CT of 01/27/2018. Pneumonia is considered. D/ / Chris Torres / Crhis Torres Interpreting Provider: Chris Torres Chest CTA 03/15/18 17:46 IMPRESSION: 1. No pulmonary embolus is identified. 2. Compared to prior evaluations, the appearance of the left lower lobe and lingular left upper lobe are primarily concerning for pneumonia. 3. Superimposed bronchopneumonia identified throughout the lung parenchyma. D/ / Chris Torres / Chris Torres Interpreting Provider: Chris Torres Chest X-Ray 03/15/18 17:45 IMPRESSION: Left lower lobe opacification appears new compared to PET-CT of 01/27/2018. Pneumonia is considered. D/ / Chris Torres / Chris Torres Interpreting Provider: Chris Torres Chest CTA 03/15/18 17:46 IMPRESSION: 1. No pulmonary embolus is identified. 2. Compared to prior evaluations, the appearance of the left lower lobe and lingular left upper lobe are primarily concerning for pneumonia. 3. Superimposed bronchopneumonia identified throughout the lung parenchyma. D/ / Chris Torres / Chris Torres Interpreting Provider: Chris Torres Abdomen/Pelvis CT 03/15/18 19:26 IMPRESSION: 1. Dense consolidation left lower lobe presumably reflecting pneumonia. Involvement with malignant process cannot be excluded. 2. Chronic soft tissue density along the lateral margin of the proximal right femur. Correlate with CT femur report from the same date. On prior PET-CT imaging this was increase in metabolic activity concerning for neoplasia. 3. Mild cardiomegaly. 4. Hepatic steatosis. 5. Chronic large fistulous or sinus tracts bilateral gluteal regions. 6. Large volume fecal debris may be related to constipation. D/ / Anibal Anthony / Anibal Anthony Interpreting Provider: Anibal Anthony Femur CT 03/15/18 19:52 IMPRESSION: 1. Right anterior proximal thigh soft tissue lesion measuring 2.3 x 1.8 x 2.2 cm. This extends into the superficial soft tissues overlying the quadriceps musculature and could represent a mass or fluid collection. Intramuscular extension is not excluded. Streak artifact limits evaluation. D/ / Wilian Abdi MD / Wilian Abdi MD Interpreting Provider: Wilian Abdi MD 2030 hours: Admit to medicine/hem-onc consult. Pt agrees with plan. - Lab Data Lab results reviewed: Yes I reviewed the patient's lab results. Result diagrams: 03/15/18 17:57 03/15/18 17:57 Lab Results 03/15/18 03/15/18 03/15/18 Range/Units 17:57 17:57 17:57 WBC 23.9 H (4.3-11.1) K/mcL RBC 4.53 (3.82-4.97) M/mcL Hgb 11.7 (11.5-15.4) g/dL Hct 38.2 (35.3-44.9) % MCV 84.3 (83.0-100.0) fL MCH 25.8 L (28.0-33.3) pg MCHC 30.6 L (31.6-35.5) g/dL RDW 20.8 H (11.5-14.5) % Plt Count 520 H (140-400) K/mcL MPV 8.8 L (9.4-12.4) fL Immature Gran % 0.6 (0-4) % Seg Neutrophils % 93.4 % Lymphocytes % 3.3 % Monocytes % 2.5 % Eosinophils % 0.0 % Basophils % 0.2 % Neutrophils # 22.3 H (1.6-8.9) K/mcL Lymphocytes # 0.8 (0.6-4.6) K/mcL Monocytes # 0.6 (0.0-1.3) K/mcL Eosinophils # 0.0 (0.0-0.6) K/mcL Basophils # 0.1 (0.0-0.2) K/mcL PT 14.2 H (9.4-12.1) Seconds INR 1.3 Sodium 135 L (136-145) mEq/L Potassium 4.5 (3.5-5.1) mEq/L Chloride 99 (98-107) mEq/L Carbon Dioxide 29 (23-29) mEq/L BUN 17 (6-20) mg/dL Creatinine 0.64 (0.60-1.20) mg/dL Est GFR ( Amer) > 60 (> 60) Est GFR (Non-Af Amer) > 60 (> 60) BUN/Creatinine Ratio 27 H (6-26) Glucose 127 H (70-105) mg/dL Calculated Osmolality 283 (280-300) Lactic Acid (0.5-2.2) mmol/L Calcium 9.8 (8.6-10.3) mg/dL Total Bilirubin 0.5 (0.3-1.0) mg/dL Direct Bilirubin 0.3 H (0.0-0.2) mg/dL Indirect Bilirubin 0.2 (0.0-1.2) mg/dL AST 25 (13-39) Units/L ALT 16 (7-52) Units/L Alkaline Phosphatase 153 H (34-104) Units/L Troponin I 0.13 H* (< 0.04) ng/mL B-Natriuretic Peptide (Less than 100) pg/mL Serum Total Protein 6.9 (6.4-8.9) g/dL Albumin 3.2 L (3.5-5.7) g/dL Globulin 3.7 H (2.4-3.5) g/dL Albumin/Globulin Ratio 0.9 L (1.1-2.2) Urine Color (Yellow) Urine Clarity (Clear) Urine pH (5.0-8.0) pH Units Ur Specific [place] (1.010-1.025) Urine Protein (Neg-Trace) mg/dL Urine Glucose (UA) (Normal) mg/dL Urine Ketones (Negative) mg/dL Urine Blood (Negative) Urine Nitrite (Negative) Urine Bilirubin (Negative) Urine Urobilinogen (Normal) mg/dL Ur Leukocyte Esterase (Negative) Urine Microscopic RBC (0-3) per hpf Urine Microscopic WBC (0-3) per hpf Ur Squamous Epith Cells (None-Few) per lpf Calcium Oxalate Crystal Urine Bacteria (None-Few) per hpf Hyaline Casts (None-Few) per lpf Granular Casts (None Seen) per lpf Urine Mucus (Few) Ur Oval Fat Bodies (Not Present) 03/15/18 03/15/18 03/15/18 Range/Units 17:57 17:57 19:10 WBC (4.3-11.1) K/mcL RBC (3.82-4.97) M/mcL Hgb (11.5-15.4) g/dL Hct (35.3-44.9) % MCV (83.0-100.0) fL MCH (28.0-33.3) pg MCHC (31.6-35.5) g/dL RDW (11.5-14.5) % Plt Count (140-400) K/mcL MPV (9.4-12.4) fL Immature Gran % (0-4) % Seg Neutrophils % % Lymphocytes % % Monocytes % % Eosinophils % % Basophils % % Neutrophils # (1.6-8.9) K/mcL Lymphocytes # (0.6-4.6) K/mcL Monocytes # (0.0-1.3) K/mcL Eosinophils # (0.0-0.6) K/mcL Basophils # (0.0-0.2) K/mcL PT (9.4-12.1) Seconds INR Sodium (136-145) mEq/L Potassium (3.5-5.1) mEq/L Chloride (98-107) mEq/L Carbon Dioxide (23-29) mEq/L BUN (6-20) mg/dL Creatinine (0.60-1.20) mg/dL Est GFR ( Amer) (> 60) Est GFR (Non-Af Amer) (> 60) BUN/Creatinine Ratio (6-26) Glucose (70-105) mg/dL Calculated Osmolality (280-300) Lactic Acid 1.2 (0.5-2.2) mmol/L Calcium (8.6-10.3) mg/dL Total Bilirubin (0.3-1.0) mg/dL Direct Bilirubin (0.0-0.2) mg/dL Indirect Bilirubin (0.0-1.2) mg/dL AST (13-39) Units/L ALT (7-52) Units/L Alkaline Phosphatase (34-104) Units/L Troponin I (< 0.04) ng/mL B-Natriuretic Peptide 667 H (Less than 100) pg/mL Serum Total Protein (6.4-8.9) g/dL Albumin (3.5-5.7) g/dL Globulin (2.4-3.5) g/dL Albumin/Globulin Ratio (1.1-2.2) Urine Color Dark Yellow (Yellow) Urine Clarity Clear (Clear) Urine pH 6.0 (5.0-8.0) pH Units Ur Specific [place] 1.025 (1.010-1.025) Urine Protein 100 H (Neg-Trace) mg/dL Urine Glucose (UA) Normal (Normal) mg/dL Urine Ketones 15 H (Negative) mg/dL Urine Blood Negative (Negative) Urine Nitrite Negative (Negative) Urine Bilirubin Small H (Negative) Urine Urobilinogen 4.0 H (Normal) mg/dL Ur Leukocyte Esterase Negative (Negative) Urine Microscopic RBC 5-15 H (0-3) per hpf Urine Microscopic WBC 5-15 H (0-3) per hpf Ur Squamous Epith Cells Many H (None-Few) per lpf Calcium Oxalate Crystal Present Urine Bacteria Few (None-Few) per hpf Hyaline Casts Many H (None-Few) per lpf Granular Casts Few H (None Seen) per lpf Urine Mucus Many H (Few) Ur Oval Fat Bodies Present A (Not Present) - Radiology Data Radiology results reviewed: Yes I reviewed the patient's radiology results. Chest X-Ray 03/15/18 17:45 IMPRESSION: Left lower lobe opacification appears new compared to PET-CT of 01/27/2018. Pneumonia is considered. D/ / Chris Torres / Chris Torres Interpreting Provider: Chris Torres Chest X-Ray 03/15/18 17:45 IMPRESSION: Left lower lobe opacification appears new compared to PET-CT of 01/27/2018. Pneumonia is considered. D/ / Chris Torres / Chris Torres Interpreting Provider: Chris Torres Chest CTA 03/15/18 17:46 IMPRESSION: 1. No pulmonary embolus is identified. 2. Compared to prior evaluations, the appearance of the left lower lobe and lingular left upper lobe are primarily concerning for pneumonia. 3. Superimposed bronchopneumonia identified throughout the lung parenchyma. D/ / Chris Torres / Chris Torres Interpreting Provider: Chris Torres Chest X-Ray 03/15/18 17:45 IMPRESSION: Left lower lobe opacification appears new compared to PET-CT of 01/27/2018. Pneumonia is considered. D/ / Chris Torres / Chris Torres Interpreting Provider: Chris Torres Chest CTA 03/15/18 17:46 IMPRESSION: 1. No pulmonary embolus is identified. 2. Compared to prior evaluations, the appearance of the left lower lobe and lingular left upper lobe are primarily concerning for pneumonia. 3. Superimposed bronchopneumonia identified throughout the lung parenchyma. D/ / Chris Torres / Chris Torres Interpreting Provider: Chris Torres Abdomen/Pelvis CT 03/15/18 19:26 IMPRESSION: 1. Dense consolidation left lower lobe presumably reflecting pneumonia. Involvement with malignant process cannot be excluded. 2. Chronic soft tissue density along the lateral margin of the proximal right femur. Correlate with CT femur report from the same date. On prior PET-CT imaging this was increase in metabolic activity concerning for neoplasia. 3. Mild cardiomegaly. 4. Hepatic steatosis. 5. Chronic large fistulous or sinus tracts bilateral gluteal regions. 6. Large volume fecal debris may be related to constipation. D/ / Anibal Anthony / Anibal Anthony Interpreting Provider: Anibal Anthony Femur CT 03/15/18 19:52 IMPRESSION: 1. Right anterior proximal thigh soft tissue lesion measuring 2.3 x 1.8 x 2.2 cm. This extends into the superficial soft tissues overlying the quadriceps musculature and could represent a mass or fluid collection. Intramuscular extension is not excluded. Streak artifact limits evaluation. D/ / Wilian Abdi MD / Wilian Abdi MD Interpreting Provider: Wilian Abdi MD - EKG Data EKG attestation: Yes I reviewed and interpreted this EKG. EKG shows normal: Reports: sinus rhythm Rate: Reports: normal Rhythm: Reports: NSR [place]/QRS: Reports: right axis deviation T wave inversions noted in: Reports: aVR, v1, v3 (Biphasic) When compared to previous EKG there are: changes noted Interpretation: Reports: nonspecific ST-T wave changes S.B.A.R. - S.B.A.R. Situation: Demographics Background: Presenting Complaint Assessment: Vital Signs, Course and respsone to treatment, Patient/Family Expectation Recommendation: Barrier(s) to disposition, Recommendation based on pending studies, treatments, or consults S.B.A.RHawa Report Given to: Hospitalist Tim Repor Time: 19:38 Attestation Statement - Attestation Attestation: This documentation is done with the assistance of Dragon dictation. Despite efforts made to ensure accuracy, there may be inaccuracies in data input clerk or spelling and typographical errors. I examined this patient and my medical decision-making was reviewed with the Resident Physician. I agree with the documented findings, disposition and treatment plan as described except to the extent set forth below. Patient seen and evaluated with Dr. Campos and myself, I agree with his evaluation and management plan, supervise care the patient's stay. Patient has a history of lung cancer with metastatic disease. She has been having some dyspnea and some discomfort also along her chest wall. She says that she has been pretty weak has not had much of an appetite either. She is coming by her family. We will check labs on her micturition pneumonia or PE and she will most likely need admission. She is in agreement with this plan.
[2018-03-15 18:10] LABS: Basophils % 0.2 %; Hematocrit 38.2 % (35.3-44.9); Hemoglobin 11.7 g/dL (11.5-15.4); Immature Granulocytes % 0.6 % (0-4); Lymphocytes # 0.8 K/mcL (0.6-4.6); Lymphocytes % 3.3 %; Mean Corpuscular HGB Conc 30.6 g/dL (31.6-35.5); Mean Corpuscular Hemoglobin 25.8 pg (28.0-33.3); Mean Corpuscular Volume 84.3 fL (83.0-100.0); Mean Platelet Volume 8.8 fL (9.4-12.4); Monocytes # 0.6 K/mcL (0.0-1.3); Monocytes % 2.5 %; Neutrophils # 22.3 K/mcL (1.6-8.9); Platelet Count 520 K/mcL (140-400); Red Blood Count 4.53 M/mcL (3.82-4.97); Red Cell Distribution Width 20.8 % (11.5-14.5); Segmented Neutrophils % 93.4 %
[2018-03-15 18:15] LABS: INR 1.3; Prothrombin Time 14.2 Seconds (9.4-12.1)
[2018-03-15 18:24] LABS: Basophils # 0.1 K/mcL (0.0-0.2)
[2018-03-15] MEDS ORDERED: Piperacillin/Tazobactam 3.375 GM in 0.9 % Sodium Chloride Mini Bag 100 ML IVPB ONE (18:31)
[2018-03-15 18:39] LABS: Alanine Aminotransferase 16 Units/L (7-52); Albumin 3.2 g/dL (3.5-5.7); Albumin/Globulin Ratio 0.9 (1.1-2.2); Alkaline Phosphatase 153 Units/L (34-104); Aspartate Amino Transferase 25 Units/L (13-39); BUN/Creatinine Ratio 27 (6-26); Bilirubin,Direct 0.3 mg/dL (0.0-0.2); Bilirubin,Indirect 0.2 mg/dL (0.0-1.2); Bilirubin,Total 0.5 mg/dL (0.3-1.0); Blood Urea Nitrogen 17 mg/dL (6-20); Calcium 9.8 mg/dL (8.6-10.3); Carbon Dioxide 29 mEq/L (23-29); Chloride 99 mEq/L (98-107); Globulin 3.7 g/dL (2.4-3.5); Glucose 127 mg/dL (70-105); Osmolality,Calculated 283 (280-300); Potassium 4.5 mEq/L (3.5-5.1); Sodium 135 mEq/L (136-145); Total Protein 6.9 g/dL (6.4-8.9); eGFR For Non-African Americans > 60 (> 60)
[2018-03-15 18:41] LABS: Troponin I 0.13 ng/mL (< 0.04)
[2018-03-15] MEDS ORDERED: Aspirin 325 MG TABLET PO ONE (18:42)
[2018-03-15] MEDS ORDERED: *HR* OxyCODONE/APAP 10/325 TABLET PO ONE (19:25)
[2018-03-15 19:29] LABS: Bilirubin,Urine Small (Negative); Blood,Urine Negative (Negative); Clarity,Urine Clear (Clear); Glucose,Urine (UA) Normal (Normal); Ketones,Urine 15 mg/dL (Negative); Leukocyte Esterase,Urine Negative (Negative); Nitrite,Urine Negative (Negative); Protein,Urine 100 mg/dL (Neg-Trace); Specific Gravity,Urine 1.025 (1.010-1.025)
[2018-03-15 19:30] LABS: Color,Urine Dark Yellow (Yellow); Squamous Epithelial Cell,Urine Many per lpf (None-Few)
[2018-03-15 19:43] LABS: Hyaline Casts,Urine Many per lpf (None-Few)
[2018-03-15] MEDS ORDERED: *HR* Heparin 5,000 UNIT/ML VIAL IVP ONE (19:43)
[2018-03-15] MEDS ORDERED: *HR* Heparin 5,000 UNIT/ML VIAL IVP PRN ×2 (19:43)
[2018-03-15 19:44] LABS: Bacteria,Urine Few per hpf (None-Few); Calcium Oxalate Crystals,Urine Present; Granular Casts,Urine Few per lpf (None Seen); Mucus,Urine Many (Few); Oval Fat Bodies,Urine Present (Not Present)
[2018-03-15] MEDS ORDERED: Heparin 25,000 UNIT/500 ML D5W 25,000 UNIT/500 ML BAG IVC SCH (19:45)
[2018-03-15] MEDS ORDERED: *HR* OxyCODONE Immed Rel 5 MG TABLET PO PRN (20:09)
[2018-03-15 20:36] LABS: Hematocrit 35.7 % (35.3-44.9); Hemoglobin 10.9 g/dL (11.5-15.4); Mean Corpuscular HGB Conc 30.5 g/dL (31.6-35.5); Mean Corpuscular Hemoglobin 25.8 pg (28.0-33.3); Mean Corpuscular Volume 84.4 fL (83.0-100.0); Platelet Count 519 K/mcL (140-400); Red Blood Count 4.23 M/mcL (3.82-4.97); Red Cell Distribution Width 20.6 % (11.5-14.5)
[2018-03-15 20:42] LABS: Heparin anti-factor XA UFH 0.03 IU/mL (0.30-0.70); INR 1.3; Prothrombin Time 14.9 Seconds (9.4-12.1)
--- NOTE | 2018-03-15 21:12 | Internal Med History&Physical ---
Date of Encounter: 03/15/18 Time of Encounter: 21:10 Internal Medicine - H&P: HPI Chief complaint: Shortness of breath Admitted From: Home Plans for Post Hospital Care: Home History of present illness: Elena Zacarias is a 57 year old woman who was diagnosed with metastatic lung cancer in May 2017 with peripheral destructive lesion in the right proximal femur associated with fracture, [place] gangrene s/p debridement and TANYA who completed palliative radiation to her right hip in September 2017, stopped chemotherapy in December 2017 due to lack of response and is currently on nivolumab immunotherapy. She has since developed chronic right lower extremity edema and undergoes wound care for non-healing surgical wound in her back and hip. She presents today to the ER with the complaint of shortness of breath. She also reported persistent productive cough accompanying and rhinorrhea. She denied chest pain, abdominal pain, N/V/D. In addition she has had poor oral intake over the past few weeks. She was seen to have high grade leukocytosis, positive troponin with no EKG ischemic changes and no chest pain. Lactate wnl. She was started fluids and empiric antibiotics. CXR and CT imaging reviewed independently by me depictive of a left lower lobe infiltrate concerning for pneumonia; no emboli reported. On my assessment she was lying comfortably in bed. Her sister and mother at bedside state that the shortness of breath has been increasing over weeks. They also confirm that she has had moments of "burning up" followed by chills. The patient herself denies ever having chest pain but confirms she has been coughing and expectorating. Past Med Surg Social Fam HX - Past Medical History Medical history: cancer, other Additional medical history: Lung CA Psychiatric history: anxiety - Past Surgical History Surgical History: other Additional surgical history: Femur removal, debridements - Social History Smoking Status: Current some day smoker Smokeless Tobacco Status: No Alcohol use: none Drug use: marijuana - Family History Mother Adopted: No Family Member Ethnicity: Non- Living Status: Still Living Hx Family Cardiac Disorders: No Hx Family Respiratory Disorders: No Hx Family Cancer: No Hx Family GI Disorders: No Hx Family Endocrine Disorder: Yes Hx Family Neuromuscular Disorders: No Hx Family Neurologic Disorders: No Hx Family HEENT Disorders: No Hx Family Autoimmune Disorders: No Father Family Member Ethnicity: Non- Living Status: Still Living Internal Medicine - H&P: Meds RX: ALPRAZolam [Xanax 1 MG Tablet] 1 mg PO BID PRN 08/27/17 [History] RX: Citalopram [CeleXA] 20 mg PO DAILY 09/11/17 [History] RX: Promethazine [Phenergan] 25 mg PO Q6HR PRN #30 tablet 11/18/17 [Rx] RX: Sennosides [Senokot] 8.6 mg PO BID #60 tablet 11/25/17 [Rx] RX: Gabapentin [Neurontin] 600 mg PO TID #90 tablet 01/28/18 [Rx] RX: Pantoprazole Sodium [Protonix] 40 mg PO DAILY #30 tablet.dr 01/28/18 [Rx] Oxycodone HCl [Oxycontin] 80 mg PO BID 30 Days #120 tab.er.12h 02/17/18 [Rx] RX: Oxycodone HCl 5 - 10 mg PO Q6H PRN 30 Days #180 tablet 02/17/18 [Rx] RX: Zolpidem [Ambien] 10 mg PO HS 30 Days #30 tablet 02/17/18 [Rx] 3 Allergy/AdvReac Type Severity Reaction Status Date / Time hydrocodone [From [place]] AdvReac Gastrointestinal Verified 01/21/18 09:06 Upset All Systems PM: A 10-system review of systems was performed and is negative for pertinent findings except as documented above in the HPI. - Constitutional Vitals: Temp Pulse Resp BP Pulse Ox 98.1 F 73 19 138/82 95 03/15/18 17:29 03/15/18 20:48 03/15/18 20:48 03/15/18 20:48 03/15/18 20:48 Exam: Vitals: Reviewed General: Appears weakened, somewhat somnolent. Skin: Pale and dry. HEENT: Dry mucous membranes. (+) conjunctivae pallor. Neck: No lymphadenopathy. No JVD. No carotid bruits. No palpable thyroid. Chest: Reduced thoracic expansion. Diminished breath sounds with fine rales in the left lower lung field. Heart: Normal S1 & S2; rhythmic. No rubs or murmurs. Abdomen: Non-distended, soft and non-tender to palpation. No peritoneal reaction. Extremities: Right leg circumferentially larger than left; non-tender. Neurological: Arousable and oriented to person, place and time. No focal deficits. Psych: Affect appropriate. Internal Med - H&P Results - Labs CBC & Chem 7: 03/15/18 20:19 03/15/18 17:57 Labs: Short CBC 03/15/18 03/15/18 Range/Units 17:57 20:19 WBC 23.9 H 22.6 H (4.3-11.1) K/mcL Hgb 11.7 10.9 L (11.5-15.4) g/dL Hct 38.2 35.7 (35.3-44.9) % Plt Count 520 H 519 H (140-400) K/mcL Neutrophils # 22.3 H (1.6-8.9) K/mcL BMP 03/15/18 17:57 Sodium 135 L Potassium 4.5 Chloride 99 Carbon Dioxide 29 BUN 17 Creatinine 0.64 Glucose 127 H Calcium 9.8 Cardiac Enzymes 03/15/18 Range/Units 17:57 Troponin I 0.13 H* (< 0.04) ng/mL Liver Function 03/15/18 Range/Units 17:57 Total Bilirubin 0.5 (0.3-1.0) mg/dL Direct Bilirubin 0.3 H (0.0-0.2) mg/dL AST 25 (13-39) Units/L ALT 16 (7-52) Units/L Alkaline Phosphatase 153 H (34-104) Units/L Albumin 3.2 L (3.5-5.7) g/dL Urine 03/15/18 Range/Units 19:10 Urine Color Dark Yellow (Yellow) Urine Clarity Clear (Clear) Urine pH 6.0 (5.0-8.0) pH Units Ur Specific [place] 1.025 (1.010-1.025) Urine Protein 100 H (Neg-Trace) mg/dL Urine Glucose (UA) Normal (Normal) mg/dL - Impressions ITS Impressions Chest X-Ray 03/15/18 17:45 IMPRESSION: Left lower lobe opacification appears new compared to PET-CT of 01/27/2018. Pneumonia is considered. D/ / Chris Torres / Chris Torres Interpreting Provider: Chris Torres Chest CTA 03/15/18 17:46 IMPRESSION: 1. No pulmonary embolus is identified. 2. Compared to prior evaluations, the appearance of the left lower lobe and lingular left upper lobe are primarily concerning for pneumonia. 3. Superimposed bronchopneumonia identified throughout the lung parenchyma. D/ / Chris Torres / Chris Torres Interpreting Provider: Chris Torres Abdomen/Pelvis CT 03/15/18 19:26 IMPRESSION: 1. Dense consolidation left lower lobe presumably reflecting pneumonia. Involvement with malignant process cannot be excluded. 2. Chronic soft tissue density along the lateral margin of the proximal right femur. Correlate with CT femur report from the same date. On prior PET-CT imaging this was increase in metabolic activity concerning for neoplasia. 3. Mild cardiomegaly. 4. Hepatic steatosis. 5. Chronic large fistulous or sinus tracts bilateral gluteal regions. 6. Large volume fecal debris may be related to constipation. D/ / Anibal Anthony / Anibal Anthony Interpreting Provider: Anibal Anthony Femur CT 03/15/18 19:52 IMPRESSION: 1. Right anterior proximal thigh soft tissue lesion measuring 2.3 x 1.8 x 2.2 cm. This extends into the superficial soft tissues overlying the quadriceps musculature and could represent a mass or fluid collection. Intramuscular extension is not excluded. Streak artifact limits evaluation. D/ / Wilian Abdi MD / Wilian Abdi MD Interpreting Provider: Wilian Abdi MD - Assessment and plan (1) Sepsis Current Visit: Yes Status: Acute Assessment and plan: secondary to HCAP as evidenced by high grade leukocytosis and HR >20 with finding of infiltrate on x-ray. IVF resuscitation started. Lactate and BP wnl. Abx as indicated below. Qualifiers: Sepsis type: sepsis due to unspecified organism Qualified Code(s): A41.9 - Sepsis, unspecified organism (2) HCAP (healthcare-associated pneumonia) Current Visit: Yes Status: Acute Assessment and plan: Seen to have a notable infiltrate on x-ray and signs of bronchopneumonia on CT scan coupled with productive cough and shortness of breath. Will classify as HCAP based on her contact with health services and immunosuppressed state. Blood and sputum cultures to be collected, IVF, empiric vancomycin/piptazo, urine legionella and Strep Ag. (3) Troponin level elevated Current Visit: Yes Status: Acute Assessment and plan: The patient has no significantly concerning electrocardiographic ischemic changes and no other known risk factors for CAD other than prior smoking history an now cancer. More concerning would be pulmonary embolism which has been ruled out on CTA. Very likely sepsis may be the cause rather than actual ACS. For now will hold on anticoagulation with heparin pending a repeat level. She has already received loading dose of ASA and initial heparin bolus of heparin in the ER. If she develops chest pain, has EKG changes, or increasing troponins, we shall start heparin gtt. Cardiology has already been made aware. For now, remain on telemetry with close monitoring. (4) Right leg swelling Current Visit: Yes Status: Acute Assessment and plan: Seems secondary to surgical intervention on the right hip. DVT ruled out with duplex done a month ago. Keep leg elevated. (5) Lung cancer Current Visit: Yes Status: Acute Assessment and plan: Currently on nivolumab every 2 weeks. Will consult oncology for f/u while hospitalized. Qualifiers: Laterality: unspecified laterality Lung location: unspecified part of lung Qualified Code(s): C34.90 - Malignant neoplasm of unspecified part of unspecified bronchus or lung (6) Non-pressure chronic ulcer of buttock with fat layer exposed Current Visit: Yes Status: Chronic Assessment and plan: Will consult wound care for follow up and continuation of care being received as OP. - Time Spent With Patient Total time spent is greater than 50% in coordination of care (as documented) at patient's floor/unit and/or counseling patient: Greater than 35 minutes
[2018-03-15] MEDS ORDERED: *HR* OxyCODONE/APAP 5/325 TABLET PO PRN (21:43)
[2018-03-15] MEDS: Gabapentin 300 MG CAPSULE PO SCH (22:06)
[2018-03-15] MEDS: Ringers Solution, Lactated 1,000 ML IVC SCH (23:59)
[2018-03-16] MEDS: Sennosides 8.6 MG TABLET PO SCH ×3 (02:09→21:53)
[2018-03-16] MEDS: *HR* OxyCODONE ER (12 HR) 40 MG TABLET PO SCH ×3 (02:09→21:54)
[2018-03-16] MEDS: Piperacillin/Tazobactam 3.375 GM in 0.9 % Sodium Chloride Mini Bag 100 ML IVPB SCH ×3 (02:16→18:04)
[2018-03-16] MEDS: *HR* Heparin 5,000 UNIT/ML VIAL SQ SCH ×3 (06:05→21:56)
--- NOTE | 2018-03-16 07:06 | Event Note ---
Date of Encounter: 03/16/18 Time of Encounter: 07:00 The patient was seen on follow up this morning. She reports feeling much better and has no complaints. She states that her shortness of breath has improved and she still has no chest pain. I explained that we are still checking her labs and if the troponin continues to rise then we may consider starting heparin drip pending cardiology evaluation. For now, continue antibiotics and fluids.
[2018-03-16 08:14] LABS: BUN/Creatinine Ratio 31 (6-26); Blood Urea Nitrogen 15 mg/dL (6-20); Calcium 9.1 mg/dL (8.6-10.3); Carbon Dioxide 28 mEq/L (23-29); Chloride 103 mEq/L (98-107); Glucose 103 mg/dL (70-105); Osmolality,Calculated 285 (280-300); Potassium 3.9 mEq/L (3.5-5.1); Sodium 137 mEq/L (136-145); eGFR For Non-African Americans > 60 (> 60)
[2018-03-16 08:18] LABS: Troponin I 0.21 ng/mL (< 0.04)
[2018-03-16 08:28] LABS: Basophils % 0.1 %; Eosinophils % 0.1 %; Hemoglobin 10.7 g/dL (11.5-15.4); Immature Granulocytes % 0.7 % (0-4); Lymphocytes # 1.4 K/mcL (0.6-4.6); Mean Corpuscular HGB Conc 30.6 g/dL (31.6-35.5); Mean Corpuscular Hemoglobin 25.4 pg (28.0-33.3); Mean Corpuscular Volume 82.9 fL (83.0-100.0); Mean Platelet Volume 9.1 fL (9.4-12.4); Monocytes # 0.8 K/mcL (0.0-1.3); Monocytes % 4.6 %; Neutrophils # 14.7 K/mcL (1.6-8.9); Platelet Count 520 K/mcL (140-400); Red Blood Count 4.22 M/mcL (3.82-4.97); Red Cell Distribution Width 20.8 % (11.5-14.5); Segmented Neutrophils % 86.5 %
--- NOTE | 2018-03-16 08:31 | Internal Med Progress Note ---
Hospitalist Progress Note - Encounter Date of Encounter: 03/16/18 Time of Encounter: 08:26 - Subjective Interval History: Patient seen and evaluated at bedside, she reports that she is feeling much better than when she presented to the emergency room. Denies chest pain. Shortness of breath, or abdominal pain. Reports that she last took her immunotherapy for her lung cancer about 3 weeks ago. - Exam Vitals: Temp Pulse Resp BP Pulse Ox 98.8 F 87 16 147/78 96 03/16/18 06:53 03/16/18 06:53 03/16/18 06:53 03/16/18 06:53 03/16/18 06:53 Exam: General: Alert and oriented 4. No acute distress. Cachectic with temporal wasting. Skin: Chronic decubiti ulcers in the lower back. Cardiovascular: RRR, Normal S1 & S2, no rubs, murmurs or gallops. Lungs:CTA bilaterally, no wheezes or crackles. Abdomen: Soft, Mild tender to deep palpation in the suprapubic area. No guarding or rigidity. Extremities: right lower extr symmetrically larger than the left. Neurological: Normal cognition and motor skills. CN II-XII intact. Rest of the physical exam is non contributory - Assessment and Plan (1) Sepsis Current Visit: Yes Status: Acute Assessment and Plan: CTA chest: IMPRESSION: 1. No pulmonary embolus is identified. 2. Compared to prior evaluations, the appearance of the left lower lobe and lingular left upper lobe are primarily concerning for pneumonia. 3. Superimposed bronchopneumonia identified throughout the lung parenchyma. Improving septic picturre. due to pneumonia Plan To continue empirici broad spectrum antibiotics. patient on Vanco and Zocyn Decrease IV fluids to 75mls/hr Will blood BC report to adjust antibiotics coverage if needed. Urine negative for atypical organisms. (2) HCAP (healthcare-associated pneumonia) Current Visit: Yes Status: Acute Assessment and Plan: plan of care as above. (3) Non-pressure chronic ulcer of buttock with fat layer exposed Current Visit: Yes Status: Chronic Assessment and Plan: Stage II sacral decubiti Plan Wound care has been consulted will follow recommendations. (4) Lung cancer Current Visit: Yes Status: Acute Assessment and Plan: Patient on nivolumab immunotherapy. Plan Hold medication due to sepsis Patient usually takes the medication every 2 weeks. (5) Troponin level elevated Current Visit: Yes Status: Acute Assessment and Plan: NO chest pain. Possible due to sepsis. Plan Cardiology has been consulted 12 lead EKG has been ordered continue telemetry monitoring (6) Right leg swelling Current Visit: Yes Status: Acute Assessment and Plan: Normal Venous duplex study about 2 months ago. Due to patient high risk of thrombus formation will repeat Venous Duplex of the lower extremities. DVT Prophylaxis: Continue heparin 5000 units every 8 hours for DVT prophylaxis. - Summary of Assessment and Plan Summary of Assessment and Plan: Patient to remain in the hospital to receive IV antibiotic due to sepsis secondary to pneumonia. - Time Spent with Patient Total time spent is greater than 50% in coordination of care (as documented) at patient's floor/unit and/or counseling patient: Greater than 35 minutes Plan of Care Discussed with: patient (the nurse.) Internal Medicine: Result - Labs CBC & Chem 7: 03/16/18 07:09 03/16/18 07:09 Labs: BMP 03/16/18 07:09 Sodium 137 Potassium 3.9 Chloride 103 Carbon Dioxide 28 BUN 15 Creatinine 0.48 L Glucose 103 Calcium 9.1 Cardiac Enzymes 03/16/18 Range/Units 07:09 Troponin I 0.21 H* (< 0.04) ng/mL - ABG Interpretation ABG results: PT/INR, D-dimer PT 14.9 Seconds (9.4-12.1) H 03/15/18 20:19 Consult Discharge Plan - Plan Referrals: Naif Watkins MD [Primary Care Provider] - NONE,PCP [Family Provider] - (1) Sepsis Qualifiers: Sepsis type: sepsis due to unspecified organism Qualified Code(s): A41.9 - Sepsis, unspecified organism (4) Lung cancer Qualifiers: Laterality: unspecified laterality Lung location: unspecified part of lung Qualified Code(s): C34.90 - Malignant neoplasm of unspecified part of unspecified bronchus or lung
[2018-03-16] MEDS: Gabapentin 300 MG CAPSULE PO SCH ×3 (09:02→21:53)
[2018-03-16] MEDS: Ringers Solution, Lactated 1,000 ML IVC SCH ×3 (09:03→22:50)
--- NOTE | 2018-03-16 10:35 | Cardiology Consult Note ---
Date of Encounter: 03/16/18 Time of Encounter: 10:33 Assessment and Plan (1) Troponin level elevated Current Visit: Yes Status: Acute Troponins 0.13, 0.17, 0.21 in setting of HCAP, sepsis, metastatic lung ca. Demand ischemia, nondiagnostic for ACS. Heparin gtt not warranted. Pt denies chest pain. No ischemic ECG changes. No known cardiac hx. TTE is pending. Anticipate sign off once TTE results and once seen and evaluated by Dr. Vargas. Discussion w patient/family: The assessment and plan as outlined above was discussed with the patient and/or family members who expressed understanding and agreement. All questions were answered. Thank you for involving us in the care of your patient. Please call with any questions. I will discuss all the above with Dr. Vargas and make changes as necessary. History of Present Illness Consult date: 03/16/18 Consult reason: elevated troponin Chief complaint: dyspnea History of present illness: Ms. Zacarias is a 57 year old female who was diagnosed with metastatic lung cancer in May 2017 with peripheral destructive lesion in the right proximal femur associated with fracture, [place] gangrene s/p debridement and TANYA who completed palliative radiation to her right hip in September 2017, stopped chemotherapy in December 2017 due to lack of response and is currently on nivolumab immunotherapy. She has since developed chronic right lower extremity edema and undergoes wound care for non-healing surgical wound in her back and hip. She presented to ED with the complaint of shortness of breath, persistent productive cough and rhinorrhea. She denies chest pain. CXR and CT imaging LLL infiltrate concerning for pneumonia. Troponins 0.13, 0.17, 0.21. Cardiology consulted for further recs. Pt being treated for sepsis and PNA. Past Med Surg Social Fam HX - Past Medical History Medical history: cancer, other Additional medical history: Lung CA Psychiatric history: anxiety - Past Surgical History Surgical History: other Additional surgical history: Femur removal, debridements - Social History Smoking Status: Current some day smoker Smokeless Tobacco Status: No Alcohol use: none Drug use: marijuana - Family History Mother Adopted: No Family Member Ethnicity: Non- Living Status: Still Living Hx Family Cardiac Disorders: No Hx Family Respiratory Disorders: No Hx Family Cancer: No Hx Family GI Disorders: No Hx Family Endocrine Disorder: Yes Hx Family Neuromuscular Disorders: No Hx Family Neurologic Disorders: No Hx Family HEENT Disorders: No Hx Family Autoimmune Disorders: No Father Family Member Ethnicity: Non- Living Status: Still Living Medications and Allergies ALPRAZolam [Xanax 1 MG Tablet] 1 mg PO BID PRN 08/27/17 [History] Citalopram [CeleXA] 20 mg PO DAILY 09/11/17 [History] Promethazine [Phenergan] 25 mg PO Q6HR PRN #30 tablet 11/18/17 [Rx] Sennosides [Senokot] 8.6 mg PO BID #60 tablet 11/25/17 [Rx] Gabapentin [Neurontin] 600 mg PO TID #90 tablet 01/28/18 [Rx] Pantoprazole Sodium [Protonix] 40 mg PO DAILY #30 tablet.dr 01/28/18 [Rx] Oxycodone HCl 5 - 10 mg PO Q6H PRN 30 Days #180 tablet 02/17/18 [Rx] Oxycodone HCl [Oxycontin] 80 mg PO BID 30 Days #120 tab.er.12h 02/17/18 [Rx] Zolpidem [Ambien] 10 mg PO HS 30 Days #30 tablet 02/17/18 [Rx] 3 Allergy/AdvReac Type Severity Reaction Status Date / Time hydrocodone [From [place]] AdvReac Gastrointestinal Verified 01/21/18 09:06 Upset All Systems Review: The remainder of the systems were reviewed and are negative - Cardiovascular Cardiovascular: as per HPI, dyspnea at rest, dyspnea on exertion, leg edema - Respiratory Respiratory: cough, dyspnea Physical Examination Vital Signs, Last 4 Hours Temp Pulse Resp BP Pulse Ox 03/16/18 06:53 98.8 F 87 16 147/78 96 Vital Signs Temp Pulse Resp BP Pulse Ox 03/16/18 06:53 98.8 F 87 16 147/78 96 03/16/18 03:48 98.2 F 84 116 149/85 96 03/15/18 23:24 98.0 F 73 16 147/87 95 03/15/18 20:48 73 19 138/82 95 03/15/18 18:46 95 03/15/18 18:44 72 20 144/84 93 03/15/18 18:02 20 95 03/15/18 17:41 93 03/15/18 17:29 98.1 F 78 21 150/87 94 Intake and Output 03/15/18 03/16/18 03/16/18 23:59 07:59 15:59 Intake Total 200 / 200 1100 / 1100 Balance 200 / 200 1100 / 1100 Intake: IV Fluids 200 / 200 1100 / 1100 Lactated Ringers 1,000 ML @ 125 1000 / 1000 mls/hr IVC .Q8H CECILIA Rx#: [id number] Zosyn 3.375 GM In 0.9 % Sodium 200 / 200 100 / 100 Chloride (Mini-Bag +) 100 ML @ 25 mls/hr IVPB Q8H CECILIA Rx#: [id number] Other: Weight 46.6 kg General: Conversant, No Apparent Distress HEENT: Atraumatic, Normocephaly, Mucus Membranes Moist Neck: No JVD, Normal carotid pulses Cardiac: Reg Rate and Rhythm, Normal S1 and S2, No Murmur Lungs: Other (diminished) Neuro: Alert and responsive, No focal deficits noted Abdomen: Soft, Non-Tender Skin: No rashes noted on visualized skin Musculoskeletal: No Chest Wall Tenderness Extremities: No Clubbing, No Cyanosis, No Edema, Normal Pulses Results 03/16/18 07:09 03/16/18 07:09 Lab Results 03/16/18 03/16/18 07:09 07:09 WBC 17.0 H Hgb 10.7 L Hct 35.0 L Plt Count 520 H Sodium 137 Potassium 3.9 Chloride 103 Carbon Dioxide 28 BUN 15 Creatinine 0.48 L Glucose 103 Calcium 9.1 Troponin I 0.21 H* Short CBC 03/16/18 03/15/18 03/15/18 Range/Units 07:09 20:19 17:57 WBC 17.0 H 22.6 H 23.9 H (4.3-11.1) K/mcL Hgb 10.7 L 10.9 L 11.7 (11.5-15.4) g/dL Hct 35.0 L 35.7 38.2 (35.3-44.9) % Plt Count 520 H 519 H 520 H (140-400) K/mcL Neutrophils # 14.7 H 22.3 H (1.6-8.9) K/mcL BMP 03/16/18 03/15/18 Range/Units 07:09 17:57 Sodium 137 135 L (136-145) mEq/L Potassium 3.9 4.5 (3.5-5.1) mEq/L Chloride 103 99 (98-107) mEq/L Carbon Dioxide 28 29 (23-29) mEq/L BUN 15 17 (6-20) mg/dL Creatinine 0.48 L 0.64 (0.60-1.20) mg/dL Glucose 103 127 H (70-105) mg/dL Calcium 9.1 9.8 (8.6-10.3) mg/dL Cardiac Enzymes 03/16/18 03/16/18 03/15/18 Range/Units 07:09 00:24 17:57 Troponin I 0.21 H* 0.17 H* 0.13 H* (< 0.04) ng/mL Liver Function 03/15/18 Range/Units 17:57 Total Bilirubin 0.5 (0.3-1.0) mg/dL Direct Bilirubin 0.3 H (0.0-0.2) mg/dL AST 25 (13-39) Units/L ALT 16 (7-52) Units/L Alkaline Phosphatase 153 H (34-104) Units/L Albumin 3.2 L (3.5-5.7) g/dL Urine 03/15/18 Range/Units 19:10 Urine Color Dark Yellow (Yellow) Urine Clarity Clear (Clear) Urine pH 6.0 (5.0-8.0) pH Units Ur Specific [place] 1.025 (1.010-1.025) Urine Protein 100 H (Neg-Trace) mg/dL Urine Glucose (UA) Normal (Normal) mg/dL Impressions Chest X-Ray 03/15/18 17:45 IMPRESSION: Left lower lobe opacification appears new compared to PET-CT of 01/27/2018. Pneumonia is considered. D/ / Chris Torres / Chris Torres Interpreting Provider: Chris Torres Chest CTA 03/15/18 17:46 IMPRESSION: 1. No pulmonary embolus is identified. 2. Compared to prior evaluations, the appearance of the left lower lobe and lingular left upper lobe are primarily concerning for pneumonia. 3. Superimposed bronchopneumonia identified throughout the lung parenchyma. D/ / Chris Torres / Chris Torres Interpreting Provider: Chris Torres Abdomen/Pelvis CT 03/15/18 19:26 IMPRESSION: 1. Dense consolidation left lower lobe presumably reflecting pneumonia. Involvement with malignant process cannot be excluded. 2. Chronic soft tissue density along the lateral margin of the proximal right femur. Correlate with CT femur report from the same date. On prior PET-CT imaging this was increase in metabolic activity concerning for neoplasia. 3. Mild cardiomegaly. 4. Hepatic steatosis. 5. Chronic large fistulous or sinus tracts bilateral gluteal regions. 6. Large volume fecal debris may be related to constipation. D/ / Anibal Anthony / Anibal Anthony Interpreting Provider: Anibal Anthony Femur CT 03/15/18 19:52 IMPRESSION: 1. Right anterior proximal thigh soft tissue lesion measuring 2.3 x 1.8 x 2.2 cm. This extends into the superficial soft tissues overlying the quadriceps musculature and could represent a mass or fluid collection. Intramuscular extension is not excluded. Streak artifact limits evaluation. D/ / 03/15/2018 20:42:21 Wilian Abdi MD / [facility] [place] Interpreting Provider: Wilian Abdi MD Active Medications Alprazolam (Xanax) 1 mg PO BID PRN; Protocol PRN Reason: Anxiety Stop: 09/14/18 20:10 Citalopram Hydrobromide (Celexa) 20 mg PO DAILY [facility] Stop: 09/15/18 09:01 Last Admin: 03/16/18 09:02 Dose: 20 mg Enoxaparin Sodium (Lovenox) 40 mg SQ 0600 CECILIA PRN Reason: Protocol Stop: 09/16/18 06:01 Gabapentin (Neurontin) 600 mg PO TID CECILIA Stop: 09/14/18 21:01 Last Admin: 03/16/18 09:02 Dose: 600 mg Heparin Sodium (Porcine) (Heparin) 5,000 unit SQ Q8HCO CECILIA Stop: 03/16/18 23:59 Last Admin: 03/16/18 06:05 Dose: 5,000 unit Piperacillin Sod/Tazobactam (Sod 3.375 gm/ Sodium Chloride) 100 mls @ 25 mls/ hr IVPB Q8H [facility] Stop: 09/15/18 02:01 Last Infusion: 03/16/18 06:03 Dose: Infused Vancomycin HCl 750 mg/ Sodium (Chloride) 250 mls @ 250 mls/hr IVPB Q12H [facility] Stop: 09/15/18 10:01 Lactated Ringer's (Lactated Ringers) 1,000 mls @ 75 mls/hr IVC .[id number] [facility] Stop: 03/17/18 11:36 Omeprazole (Prilosec) 20 mg PO 0730 [facility] Stop: 09/15/18 07:31 Last Admin: 03/16/18 09:02 Dose: 20 mg Oxycodone HCl (Oxycontin) 80 mg PO BID [facility] Stop: 09/14/18 21:01 Last Admin: 03/16/18 09:03 Dose: 80 mg Oxycodone/Acetaminophen (Percocet 5/325) 1 each PO Q4HR PRN PRN Reason: Pain Stop: 09/14/18 21:44 Promethazine HCl (Phenergan) 25 mg PO Q6HR PRN PRN Reason: Nausea Stop: 09/14/18 20:10 Senna (Senna) 8.6 mg PO BID [facility] Stop: 09/14/18 21:01 Last Admin: 03/16/18 09:02 Dose: 8.6 mg Zolpidem Tartrate (Ambien) 10 mg PO HS [facility] PRN Reason: Protocol Stop: 09/14/18 21:01 Last Admin: 03/15/18 23:56 Dose: 10 mg - EKG Interpretation EKG results cardiology: personally reviewed (SR), other (12 hr tele AVG HR 80, SR, no significant pauses or arrhythmias) Consult Discharge Plan - Plan Referrals: NONE,PCP [Family Provider] - Naif Watkins MD [Primary Care Provider] -
[2018-03-16] MEDS: ALPRAZolam 1 MG TABLET PO PRN ×2 (14:55→21:53)
--- NOTE | 2018-03-16 18:11 | Oncology Inp Consult Note ---
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 Femur CT reveals positive response in size of right thigh soft tissue lesion in comparison to PET measurements, pain is well controlled at this time. She has developed a discolored subcutaneous nodule to her right hip which will continue to be monitored Qualifiers: Laterality: unspecified laterality Lung location: unspecified part of lung Qualified Code(s): C34.90 - Malignant neoplasm of unspecified part of unspecified bronchus or lung (2) Non-pressure chronic ulcer of buttock with fat layer exposed Status: Chronic Assessment and plan: This has been chronically managed per Dr. Wang with the wound care team. Patient developed some alina bleeding from this wound earlier today. Wound care has been consulted for further recommendations (3) Pneumonia Status: Acute Assessment and plan: CTA chest negative for PE, reveals the appearance of the left lower lobe and lingular left upper lobe are primarily concerning for pneumonia along with Superimposed bronchopneumonia identified throughout the lung parenchyma. Symptomatically and biochemically improving with positive response in leukocytosis, without the use of steroids and therefore her symptoms are not likely related to pneumonitis secondary to her Nivolumab Management per primary team, continue empiric broad spectrum antibiotics Urine negative for atypical organisms, Pre-strong blood cx negative Recommend continued supportive treatment Qualifiers: Pneumonia type: due to unspecified organism Laterality: left Lung location: lower lobe of lung Qualified Code(s): J18.1 - Lobar pneumonia, unspecified organism (4) Right leg swelling Status: Acute Assessment and plan: Clinically improving with venous doppler on 01/21/18 negative for DVT/SVT. Does not warrant doppler at this time - Data of Consult Patient: known to practice within the last 3 years Consult date: 03/16/18 Requesting Physician: Oliver Zabala MD Primary Care Provider: Naif Watkins MD Family Provider: PCP NONE - Consult Narrative Reason for consult: Pneumonia History of present illness: Ms. Zacarias is a 57 year old female known to our practice with diagnosis of metastatic adenosquamous carcinoma of presumed lung origin initially diagnosed May 2017. She presented with large destructive mass in right proximal femur with associated fracture. CT imaging without site of primary. Right ALYCIA with radical resection 05/18/[address] [facility] [address] Schroeder confirmed adenosquamous carcinoma. Prior treatment includes 1. palliative radiation right hip completed 09/29/17 2. Carboplatin with paclitaxel 11/18/17-01/12/18---Stopped secondary to lack of response. Current therapy includes nivolumab which was initiated 02/02/18 , s/p cycle #3 03/03/2018. She has tolerated treatment well. She presented to the ER with the complaint of shortness of breath. She also reported persistent productive cough accompanying and rhinorrhea. She denied chest pain, abdominal pain, N/V/D. In addition she has had poor oral intake over the past few weeks. She was seen to have high grade leukocytosis, positive troponin with no EKG ischemic changes and no chest pain. Lactate wnl. She was started fluids and empiric antibiotics, Vancomycin and Zosyn. CXR and CT imaging depictive of a left lower lobe as well as left upper lobe infiltrate concerning for pneumonia; no emboli reported per CTA. Past Med Surg Social Fam HX - Past Medical History Medical history: cancer, other Additional medical history: Lung CA Psychiatric history: anxiety - Past Surgical History Surgical History: other Additional surgical history: Femur removal, debridements - Social History Smoking Status: Current some day smoker Smokeless Tobacco Status: No Alcohol use: none Drug use: marijuana - Family History Mother Adopted: No Family Member Ethnicity: Non- Living Status: Still Living Hx Family Cardiac Disorders: No Hx Family Respiratory Disorders: No Hx Family Cancer: No Hx Family GI Disorders: No Hx Family Endocrine Disorder: Yes Hx Family Neuromuscular Disorders: No Hx Family Neurologic Disorders: No Hx Family HEENT Disorders: No Hx Family Autoimmune Disorders: No Father Family Member Ethnicity: Non- Living Status: Still Living Medications and Allergies ALPRAZolam [Xanax 1 MG Tablet] 1 mg PO BID PRN 08/27/17 [History] Citalopram [CeleXA] 20 mg PO DAILY 09/11/17 [History] Promethazine [Phenergan] 25 mg PO Q6HR PRN #30 tablet 11/18/17 [Rx] Sennosides [Senokot] 8.6 mg PO BID #60 tablet 11/25/17 [Rx] Gabapentin [Neurontin] 600 mg PO TID #90 tablet 01/28/18 [Rx] Pantoprazole Sodium [Protonix] 40 mg PO DAILY #30 tablet. 01/28/18 [Rx] Oxycodone HCl 5 - 10 mg PO Q6H PRN 30 Days #180 tablet 02/17/18 [Rx] Oxycodone HCl [Oxycontin] 80 mg PO BID 30 Days #120 tab.er.12h 02/17/18 [Rx] Zolpidem [Ambien] 10 mg PO HS 30 Days #30 tablet 02/17/18 [Rx] 3 Allergy/AdvReac Type Severity Reaction Status Date / Time hydrocodone [From [place]] AdvReac Gastrointestinal Verified 01/21/18 09:06 Upset ROS unobtainable: other (obtained mainly from patients mother at bedside and chart review) Constitutional: Present: anorexia, chills, daytime sleepiness, fatigue, fever(s) , malaise, weakness, weight loss. Absent: headache(s) Eyes: Absent: blurry vision Nose, mouth and throat: Absent: dysphagia, odynophagia Cardiovascular: Absent: chest pain, palpitations Respiratory: Present: cough, dyspnea, chest congestion. Absent: hemoptysis Gastrointestinal: Absent: abdominal pain, change in bowel habits, hematemesis, hematochezia, melena, nausea, vomiting Musculoskeletal: Present: muscle weakness Integumentary: Present: wounds (sacral ulcer) Neurological: Absent: focal weakness, frequent falls Hematologic/Lymphatic: Present: as per HPI Oncology - Exam - Constitutional Vitals: Temp Pulse Resp BP Pulse Ox 98.8 F 81 16 119/66 94 03/16/18 15:32 03/16/18 15:32 03/16/18 15:32 03/16/18 15:32 03/16/18 15:32 General appearance: cooperative, no acute distress, thin, no febrile Exam: chronically ill appearing - Head Head exam: Present: atraumatic - ENT ENT exam: Present: mucous membranes moist - Respiratory Respiratory exam: Present: decreased breath sounds. Absent: respiratory distress - Cardiovascular Cardiovascular exam: Present: RRR, +S1, +S2 - GI/Abdominal GI/Abdominal exam: Present: normal bowel sounds, soft. Absent: tenderness - Extremities Exam Extremities exam: Absent: calf tenderness Additional comments: 1+ non pitting edema RLE - Neurological Exam Neurological exam: Present: alert, oriented X3, no focal deficits, strengths equal and symetr throughout (weak bilaterally) - Psychiatric Psychiatric exam: Present: normal affect, normal mood - Skin Skin exam: Present: dry, normal color, warm Additional comments: sacral ulcer- not observed on assessment today decreased edema to RLE and right hip per Dr. Garza/family assessment, discolored subcutaneous nodule to right hip Oncology - Results Labs: 3 03/16/18 03/16/18 07:09 07:09 WBC 17.0 H RBC 4.22 Hgb 10.7 L Hct 35.0 L MCV 82.9 L MCH 25.4 L MCHC 30.6 L RDW 20.8 H Plt Count 520 H MPV 9.1 L Immature Gran % 0.7 Seg Neutrophils % 86.5 Lymphocytes % 8.0 Monocytes % 4.6 Eosinophils % 0.1 Basophils % 0.1 Neutrophils # 14.7 H Lymphocytes # 1.4 Monocytes # 0.8 Eosinophils # 0.0 Basophils # 0.0 Sodium 137 Potassium 3.9 Chloride 103 Carbon Dioxide 28 BUN 15 Creatinine 0.48 L Est GFR ( Amer) > 60 Est GFR (Non-Af Amer) > 60 BUN/Creatinine Ratio 31 H Glucose 103 Calculated Osmolality 285 Calcium 9.1 Troponin I 0.21 H* Consult Discharge Plan - Plan Referrals: NONE,PCP [Family Provider] - Naif Watkins MD [Primary Care Provider] - <Moe Garza - Last Filed: 03/17/18 08:23> Date of Encounter: 03/17/18 - Data of Consult Requesting Physician: Oliver Zabala MD Primary Care Provider: Naif Watkins MD Family Provider: PCP NONE - Consult Narrative History of present illness: Ms. Zacarias is a 57 year old female Oncology - Exam - Constitutional Vitals: Temp Pulse Resp BP Pulse Ox 98.4 F 93 16 122/61 84 03/17/18 07:51 03/17/18 07:51 03/17/18 07:51 03/17/18 07:51 03/17/18 07:51 Oncology - Results Labs: 3 03/16/18 03/16/18 07:09 07:09 WBC 17.0 H RBC 4.22 Hgb 10.7 L Hct 35.0 L MCV 82.9 L MCH 25.4 L MCHC 30.6 L RDW 20.8 H Plt Count 520 H MPV 9.1 L Immature Gran % 0.7 Seg Neutrophils % 86.5 Lymphocytes % 8.0 Monocytes % 4.6 Eosinophils % 0.1 Basophils % 0.1 Neutrophils # 14.7 H Lymphocytes # 1.4 Monocytes # 0.8 Eosinophils # 0.0 Basophils # 0.0 Sodium 137 Potassium 3.9 Chloride 103 Carbon Dioxide 28 BUN 15 Creatinine 0.48 L Est GFR ( Amer) > 60 Est GFR (Non-Af Amer) > 60 BUN/Creatinine Ratio 31 H Glucose 103 Calculated Osmolality 285 Calcium 9.1 Troponin I 0.21 H* - Attending Attestation I have seen and examined Ms. Zacarias and agree with the assessment by Ms. terry. She is been admitted with fever, cough and by CT scan a left lower lobe and lingular pneumonia. She has responded to antibiotics with improvement in her cough and energy. She is currently on Zosyn and vancomycin. I think be reasonable to transition her to for anagement of a community acquired pneumonia she is clinically not immune suppressed nor has she been recently hospitalized. In addition, she has had bleeding from her fistulous tract involving her buttocks. Wound care consult has been placed I will defer management to her hospitalist team. Regarding her cancer, her right leg swelling has markedly improved from her previous evaluation in my office. By CT imaging, she has had a positive response to therapy. Imaging has been personally reviewed. There is no indication for acute change in therapy. Further decisions regarding her therapy will be deferred until discharge and outpatient follow-up. Inpatient Charges Provider: Dr. Italo Garza Consult - Inpatient: [id number]
[2018-03-17] MEDS: Piperacillin/Tazobactam 3.375 GM in 0.9 % Sodium Chloride Mini Bag 100 ML IVPB SCH ×3 (03:08→17:15)
[2018-03-17] MEDS: *HR* Enoxaparin 40 MG/0.4 ML SYRINGE SQ SCH (05:52)
[2018-03-17 08:24] LABS: Hematocrit 37.6 % (35.3-44.9); Hemoglobin 11.5 g/dL (11.5-15.4); Mean Corpuscular HGB Conc 30.6 g/dL (31.6-35.5); Mean Corpuscular Hemoglobin 25.8 pg (28.0-33.3); Mean Corpuscular Volume 84.5 fL (83.0-100.0); Mean Platelet Volume 8.8 fL (9.4-12.4); Platelet Count 498 K/mcL (140-400); Red Blood Count 4.45 M/mcL (3.82-4.97); Red Cell Distribution Width 20.6 % (11.5-14.5)
[2018-03-17 08:45] LABS: BUN/Creatinine Ratio 20 (6-26); Blood Urea Nitrogen 8 mg/dL (6-20); Calcium 9.1 mg/dL (8.6-10.3); Carbon Dioxide 29 mEq/L (23-29); Chloride 103 mEq/L (98-107); Glucose 81 mg/dL (70-105); Magnesium 1.8 mg/dL (1.6-2.6); Osmolality,Calculated 277 (280-300); Phosphorous 2.6 mg/dL (2.7-4.5); Potassium 3.7 mEq/L (3.5-5.1); Sodium 135 mEq/L (136-145); eGFR For Non-African Americans > 60 (> 60)
[2018-03-17] MEDS: Sennosides 8.6 MG TABLET PO SCH ×2 (08:49→21:11)
[2018-03-17] MEDS: Gabapentin 300 MG CAPSULE PO SCH ×3 (08:50→21:11)
[2018-03-17] MEDS: *HR* OxyCODONE ER (12 HR) 40 MG TABLET PO SCH ×2 (08:50→21:11)
[2018-03-17] MEDS ORDERED: Aminoglycoside Consult 1 EACH MC ONE (13:33)
--- NOTE | 2018-03-17 13:41 | Internal Med Progress Note ---
Hospitalist Progress Note - Encounter Date of Encounter: 03/17/18 Time of Encounter: 13:38 - Subjective Interval History: Seen and evaluated at bedside. patient report feeling better, denies shortness of breath and reports that she feels she is closed to her baseline. Denies loose stool, nausea or vomiting. - Exam Vitals: Temp Pulse Resp BP Pulse Ox 98.7 F 80 16 103/65 93 03/17/18 11:59 03/17/18 11:59 03/17/18 11:59 03/17/18 11:59 03/17/18 11:59 Exam: General: Alert and oriented 4. No acute distress. Cachectic with temporal wasting. Skin: Chronic decubiti ulcers in the lower back. Cardiovascular: RRR, Normal S1 & S2, no rubs, murmurs or gallops. Lungs:vCTA bilaterally, no wheezes or crackles. Abdomen: Soft, Mild tender to deep palpation in the suprapubic area. No guarding or rigidity. Extremities: right lower extr symmetrically larger than the left. Neurological: Normal cognition and motor skills. CN II-XII intact. Rest of the physical exam is non contributory - Assessment and Plan (1) HCAP (healthcare-associated pneumonia) Current Visit: Yes Status: Acute Assessment and Plan: Chest CTA. Mind productive cough. Plan Continue Piperazillin/Tazobactam Discontinue Vancomycin Pending blood culture report to de-escalate Urine negative for atypical organism As per Oncology not chemotherapy pneumonitis (2) Sepsis Current Visit: Yes Status: Resolved Assessment and Plan: Septic picture on presentation resolved. (3) Non-pressure chronic ulcer of buttock with fat layer exposed Current Visit: Yes Status: Chronic Assessment and Plan: Stage II sacral decubiti Plan Wound care seen the patient recommendations to follow. 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 Cardiology consulted, no intervention recommended. F/U TTE report. (6) Right leg swelling Current Visit: Yes Status: Acute Assessment and Plan: Normal Venous duplex study about 2 months ago. As per Oncology no need for further evaluation. 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 - Summary of Assessment and Plan Summary of Assessment and Plan: Patient to remain in the hospital for 24-48 hours for IV antibiotics. - Time Spent with Patient Total time spent is greater than 50% in coordination of care (as documented) at patient's floor/unit and/or counseling patient: 25 - 35 minutes Plan of Care Discussed with: patient (the family and nurse.) Internal Medicine: Result - Labs CBC & Chem 7: 03/17/18 08:05 03/17/18 08:05 Labs: Short CBC 03/17/18 Range/Units 08:05 WBC 17.1 H (4.3-11.1) K/mcL Hgb 11.5 (11.5-15.4) g/dL Hct 37.6 (35.3-44.9) % Plt Count 498 H (140-400) K/mcL BMP 03/17/18 08:05 Sodium 135 L Potassium 3.7 Chloride 103 Carbon Dioxide 29 BUN 8 Creatinine 0.40 L Glucose 81 Calcium 9.1 - ABG Interpretation ABG results: PT/INR, D-dimer PT 14.9 Seconds (9.4-12.1) H 03/15/18 20:19 Consult Discharge Plan - Plan Referrals: NONE,PCP [Family Provider] - Naif Watkins MD [Primary Care Provider] - (2) Sepsis Qualifiers: Sepsis type: sepsis due to unspecified organism Qualified Code(s): A41.9 - Sepsis, unspecified organism (4) Lung cancer Qualifiers: Laterality: unspecified laterality Lung location: unspecified part of lung Qualified Code(s): C34.90 - Malignant neoplasm of unspecified part of unspecified bronchus or lung
[2018-03-17] MEDS: ALPRAZolam 1 MG TABLET PO PRN (16:17)
--- NOTE | 2018-03-17 17:24 | Oncology Inp Progress Note ---
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 CT imaging reveals a positive response to treatment, pain is well controlled at this time. She has developed a subcutaneous nodule to her right hip which will continue to be monitored Qualifiers: Laterality: unspecified laterality Lung location: unspecified part of lung Qualified Code(s): C34.90 - Malignant neoplasm of unspecified part of unspecified bronchus or lung (2) Non-pressure chronic ulcer of buttock with fat layer exposed Current Visit: Yes Status: Chronic Assessment and plan: Patient reports no bleeding to sacral wound today, wound care following, appreciate recommendations (3) Pneumonia Current Visit: Yes Status: Acute Assessment and plan: CTA chest negative for PE, reveals the appearance of the left lower lobe and lingular left upper lobe are primarily concerning for pneumonia along with Superimposed bronchopneumonia identified throughout the lung parenchyma. She continues to symptomatically improve, leukocytosis is responding Management per primary team, reasonable to de-escalate ATB treatment to that of CAP Urine negative for atypical organisms, Pre-strong blood cx negative At this time, oncology will sign off and plan to follow up closely as an outpatient with the plan to resume treatment once her acute illness resolves or continues to improve Please feel free to contact for any further questions or concerns Qualifiers: Pneumonia type: due to unspecified organism Laterality: left Lung location: lower lobe of lung Qualified Code(s): J18.1 - Lobar pneumonia, unspecified organism (4) Right leg swelling Current Visit: Yes Status: Acute Assessment and plan: Clinically improving with venous doppler on 01/21/18 negative for DVT/SVT. Does not warrant doppler at this time Oncology: Subj Interval history: Ms. Zacarias is feeling improved today. She appears to have more energy and is more conversant today. Appetite improving. Her pain is well controlled. Her respiratory symptoms continue to improve. - Constitutional Vitals: Vital Signs Temp Pulse Resp BP Pulse Ox 03/17/18 16:42 99.9 F H 82 16 103/64 96 03/17/18 11:59 98.7 F 80 16 103/65 93 03/17/18 07:51 98.4 F 93 16 122/61 84 03/17/18 04:03 98.1 F 95 16 145/75 93 03/16/18 23:15 99.2 F 95 16 157/81 93 03/16/18 19:26 98.2 F 82 16 147/79 95 Intake and Output 03/17/18 03/17/18 03/17/18 07:59 15:59 23:59 Intake Total 2600 / 2600 1280 / 1280 130 / 130 Output Total 600 / 600 0 / 0 0 / 0 Balance 1999 / 1999 1280 / 1280 130 / 130 Intake: IV Fluids 2600 / 2600 1250 / 1250 100 / 100 Lactated Ringers 1,000 ML @ 75 1000 / 1000 mls/hr IVC .[id number] [facility] Rx#: [id number] Zosyn 3.375 GM In 0.9 % Sodium 100 / 100 100 / 100 Chloride (Mini-Bag +) 100 ML @ 25 mls/hr IVPB Q8H [facility] Rx#: [id number] Vancocin 1,250 MG In 0.9 % 250 / 250 Sodium Chloride 250 ML @ 166.67 mls/hr IVPB Q12H [facility] Rx#: [id number] Oral 30 / 30 30 / 30 Output: Urine 600 / 600 0 / 0 0 / 0 General appearance: cooperative, no acute distress, no febrile - Head Head exam: Present: atraumatic - ENT ENT exam: Present: mucous membranes moist - Respiratory Respiratory exam: Present: wheezes. Absent: respiratory distress - Cardiovascular Cardiovascular exam: Present: RRR, +S1, +S2 - GI/Abdominal GI/Abdominal exam: Present: normal bowel sounds, soft. 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 - Neurological Exam Neurological exam: Present: alert, oriented X3, no focal deficits, strengths equal and symetr throughout - Psychiatric Psychiatric exam: Present: normal affect, normal mood - Skin Skin exam: Present: dry, intact, normal color, warm Oncology: Obj Data - Labs CBC & Chem 7: 03/17/18 08:05 03/17/18 08:05 Labs: Laboratory Results - last 24 hr 03/17/18 03/17/18 03/17/18 08:05 08:05 08:38 WBC 17.1 H RBC 4.45 Hgb 11.5 Hct 37.6 MCV 84.5 MCH 25.8 L MCHC 30.6 L RDW 20.6 H Plt Count 498 H MPV 8.8 L Sodium 135 L Potassium 3.7 Chloride 103 Carbon Dioxide 29 BUN 8 Creatinine 0.40 L Est GFR ( Amer) > 60 Est GFR (Non-Af Amer) > 60 BUN/Creatinine Ratio 20 Glucose 81 Calculated Osmolality 277 L Calcium 9.1 Phosphorus 2.6 L Magnesium 1.8 Vancomycin Trough 9 - Impressions Impressions Echocardiogram 03/17/18 08:09 Impressions: LVEF 60%. Normal LV chamber size, wall thickness and function. Atypical septal motion of unclear etiology. Mild left ventricular diastolic dysfunction. Normal right ventricular structure and function. Mild tricuspid regurgitation. Mild pulmonary hypertension. Left Ventricular Wall Motion: Rest Echo Findings All wall segments showed normal motion. Findings: Study Quality * Technically adequate exam. ECG Findings * Normal sinus rhythm. Left Ventricle * LVEF 60%. * Normal LV chamber size, wall thickness and function. * Atypical septal motion of unclear etiology. * Mild left ventricular diastolic dysfunction. Right Ventricle * Normal right ventricular structure and function. Left Atrium * Normal left atrial size. Right Atrium * Normal right atrial size. Aortic Valve * Trileaflet aortic valve with normal function. * No aortic stenosis. * Trace aortic regurgitation. Mitral Valve * Normal mitral valve structure and function. * No mitral regurgitation. * No mitral stenosis. Tricuspid Valve * Normal tricuspid valve structure and function. * Trace tricuspid regurgitation. * Mild pulmonary hypertension. Pulmonic Valve * Normal pulmonic valve structure and function. * No pulmonic regurgitation. Pericardium * The pericardium appears normal. IVC * Normal IVC dimensions and inspiratory collapse. Aorta * Normally sized aortic root. Pulmonary Artery * Normal visualized portions of the main pulmonary artery. - ABG Interpretation ABG results: PT/INR, D-dimer PT 14.9 Seconds (9.4-12.1) H 03/15/18 20:19 Consult Discharge Plan - Plan Referrals: NONE,PCP [Family Provider] - Naif Watkins MD [Primary Care Provider] - Inpatient Charges Provider: Dr. Italo Garza <Moe Garza S - Last Filed: 03/17/18 21:36> Date of Encounter: 03/17/18 - Constitutional Vitals: Vital Signs Temp Pulse Resp BP Pulse Ox 03/17/18 20:00 98.3 F 86 14 123/72 93 03/17/18 16:42 99.9 F H 82 16 103/64 96 03/17/18 11:59 98.7 F 80 16 103/65 93 03/17/18 07:51 98.4 F 93 16 122/61 84 03/17/18 04:03 98.1 F 95 16 145/75 93 03/16/18 23:15 99.2 F 95 16 157/81 93 Intake and Output 03/17/18 03/17/18 03/18/18 08:59 16:59 00:59 Intake Total 2630 / 2630 1380 / 1380 100 / 100 Output Total 600 / 600 0 / 0 Balance 2029 / 2029 1380 / 1380 100 / 100 Intake: IV Fluids 2600 / 2600 1350 / 1350 100 / 100 Lactated Ringers 1,000 ML @ 75 1000 / 1000 mls/hr IVC .[id number] [facility] Rx#: [id number] Zosyn 3.375 GM In 0.9 % Sodium 100 / 100 100 / 100 100 / 100 Chloride (Mini-Bag +) 100 ML @ 25 mls/hr IVPB Q8H [facility] Rx#: [id number] Vancocin 1,250 MG In 0.9 % 250 / 250 Sodium Chloride 250 ML @ 166.67 mls/hr IVPB Q12H [facility] Rx#: [id number] Oral 30 / 30 30 / 30 Output: Urine 600 / 600 0 / 0 Oncology: Obj Data - Labs CBC & Chem 7: 03/17/18 08:05 03/17/18 08:05 Labs: Laboratory Results - last 24 hr 03/17/18 03/17/18 03/17/18 08:05 08:05 08:38 WBC 17.1 H RBC 4.45 Hgb 11.5 Hct 37.6 MCV 84.5 MCH 25.8 L MCHC 30.6 L RDW 20.6 H Plt Count 498 H MPV 8.8 L Sodium 135 L Potassium 3.7 Chloride 103 Carbon Dioxide 29 BUN 8 Creatinine 0.40 L Est GFR ( Amer) > 60 Est GFR (Non-Af Amer) > 60 BUN/Creatinine Ratio 20 Glucose 81 Calculated Osmolality 277 L Calcium 9.1 Phosphorus 2.6 L Magnesium 1.8 Vancomycin Trough 9 - Impressions Impressions Echocardiogram 03/17/18 08:09 Impressions: LVEF 60%. Normal LV chamber size, wall thickness and function. Atypical septal motion of unclear etiology. Mild left ventricular diastolic dysfunction. Normal right ventricular structure and function. Mild tricuspid regurgitation. Mild pulmonary hypertension. Left Ventricular Wall Motion: Rest Echo Findings All wall segments showed normal motion. Findings: Study Quality * Technically adequate exam. ECG Findings * Normal sinus rhythm. Left Ventricle * LVEF 60%. * Normal LV chamber size, wall thickness and function. * Atypical septal motion of unclear etiology. * Mild left ventricular diastolic dysfunction. Right Ventricle * Normal right ventricular structure and function. Left Atrium * Normal left atrial size. Right Atrium * Normal right atrial size. Aortic Valve * Trileaflet aortic valve with normal function. * No aortic stenosis. * Trace aortic regurgitation. Mitral Valve * Normal mitral valve structure and function. * No mitral regurgitation. * No mitral stenosis. Tricuspid Valve * Normal tricuspid valve structure and function. * Trace tricuspid regurgitation. * Mild pulmonary hypertension. Pulmonic Valve * Normal pulmonic valve structure and function. * No pulmonic regurgitation. Pericardium * The pericardium appears normal. IVC * Normal IVC dimensions and inspiratory collapse. Aorta * Normally sized aortic root. Pulmonary Artery * Normal visualized portions of the main pulmonary artery. - ABG Interpretation ABG results: PT/INR, D-dimer PT 14.9 Seconds (9.4-12.1) H 03/15/18 20:19 Inpatient Charges Provider: Dr. Italo Garza Follow up - Inpatient: [id number] - Attending Attestation I examined this patient and my medical decision-making was reviewed with the Advanced Practice Nurse. I agree with the documented findings, disposition and treatment plan as described except to the extent set forth below. She is doing well. Clinically improving rapidly. Hopeful discharge in next day or two. Agree with continued antibiotics. Wound care for wound; bleeding has stopped. No change in therapy indicated from my perspective. We will sign off. We will schedule f/u with me in 1 week for therapy.
[2018-03-17] MEDS ORDERED: Ipratropium/Albuterol Neb 3 ML IH PRN (17:31)
--- NOTE | 2018-03-17 17:38 | Event Note ---
Date of Encounter: 03/17/18 Time of Encounter: 17:36 - Cardiology Event Note TTE resulted--LVEF 60%. Normal LV chamber size, wall thickness and function. Atypical septal motion of unclear etiology. Mild left ventricular diastolic dysfunction. Normal right ventricular structure and function. Mild tricuspid regurgitation. Mild pulmonary hypertension. Cardiology signing off. No further inpt cardiac testing warranted. Reconsult PRN.
[2018-03-18] MEDS: Piperacillin/Tazobactam 3.375 GM in 0.9 % Sodium Chloride Mini Bag 100 ML IVPB SCH ×3 (02:11→18:17)
[2018-03-18] MEDS: *HR* Enoxaparin 40 MG/0.4 ML SYRINGE SQ SCH (06:38)
[2018-03-18 07:54] LABS: Hematocrit 35.7 % (35.3-44.9); Hemoglobin 10.7 g/dL (11.5-15.4); Mean Corpuscular Hemoglobin 25.4 pg (28.0-33.3); Mean Corpuscular Volume 84.6 fL (83.0-100.0); Platelet Count 404 K/mcL (140-400); Red Blood Count 4.22 M/mcL (3.82-4.97); Red Cell Distribution Width 20.4 % (11.5-14.5)
[2018-03-18 08:14] LABS: BUN/Creatinine Ratio 19 (6-26); Blood Urea Nitrogen 9 mg/dL (6-20); Calcium 9.1 mg/dL (8.6-10.3); Carbon Dioxide 26 mEq/L (23-29); Chloride 103 mEq/L (98-107); Glucose 69 mg/dL (70-105); Osmolality,Calculated 281 (280-300); Potassium 3.7 mEq/L (3.5-5.1); Sodium 137 mEq/L (136-145); eGFR For Non-African Americans > 60 (> 60)
[2018-03-18] MEDS: Gabapentin 300 MG CAPSULE PO SCH ×3 (09:33→21:53)
[2018-03-18] MEDS: Sennosides 8.6 MG TABLET PO SCH ×2 (09:33→21:53)
[2018-03-18] MEDS: *HR* OxyCODONE ER (12 HR) 40 MG TABLET PO SCH (09:33)
[2018-03-18] MEDS: ALPRAZolam 1 MG TABLET PO PRN (09:42)
--- NOTE | 2018-03-18 10:49 | Electrocardiograph Report ---
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
--- NOTE | 2018-03-18 10:56 | Electrocardiograph Report ---
[address] [place] [address] Test Date: 2018-03-15 Pat Name: Elena Zacarias Department: [id number] Room: 2A25 Gender: F Consulting It Architect: : 1960 Requested By: You Campos Order Number: [id number] Reading MD: Nicolasa Christianson Measurements Intervals [place] Rate: 82 P: 83 [place]: 152 QRS: 255 QRSD: 97 T: 60 QT: 387 QTc: 452 Interpretive Statements Sinus rhythm Right axis deviation Abnormal T waves anteroseptal leads, consider ischemia Electronically Signed On 03-18-2018 10:54:57 EDT by Nicolasa Christianson
--- NOTE | 2018-03-18 11:54 | Electrocardiograph Report ---
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 SINUS RHYTHM INDETERMINATE AXIS Electronically Signed On 03-18-2018 11:52:32 EDT by Nicolasa Christianson
--- NOTE | 2018-03-18 11:55 | Electrocardiograph Report ---
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
--- NOTE | 2018-03-18 15:03 | Internal Med Progress Note ---
Hospitalist Progress Note - Encounter Date of Encounter: 03/18/18 Time of Encounter: 15:01 - Subjective Interval History: Evaluated at bedside, patient reports doing well, but reports productive cough, no fever/chills, shortness of breath or chest pain. Patient tolerating PO diet. - Exam Vitals: Temp Pulse Resp BP Pulse Ox 98.8 F 77 16 99/63 97 03/18/18 11:17 03/18/18 11:17 03/18/18 11:17 03/18/18 11:17 03/18/18 11:17 Exam: General: Alert and oriented 4. No acute distress. Cachectic with temporal wasting. Skin: Chronic decubiti ulcers in the lower back. Cardiovascular: RRR, Normal S1 & S2, no rubs, murmurs or gallops. Lungs: Rales to auscultation b/l at the bases, no wheezes or crackles. Abdomen: Soft, hyperactive BS in all 4 quadrants. No guarding or rigidity. Extremities: right lower extr symmetrically larger than the left. Neurological: Normal cognition. CN II-XII intact. Rest of the physical exam is non contributory - Assessment and Plan (1) HCAP (healthcare-associated pneumonia) Current Visit: Yes Status: Acute Assessment and Plan: Rales at both bases. Productive cough. WBC trending down. patient afebrile, hemodynamically stable. Continue Piperazilli/tazobactam B/C no growth, pending final report sputum culture and gram stain ordered: pending. Continue Nebs PRN (2) Non-pressure chronic ulcer of buttock with fat layer exposed Current Visit: Yes Status: Chronic Assessment and Plan: Wound care as per wound care nurse. 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 Requested the ensure to be cold when delivered to her. DVT Prophylaxis: On Lovenox 40 mg subcutaneous daily for DVT prophylaxis. - Summary of Assessment and Plan Summary of Assessment and Plan: Patient to remain in the hospital for 24-48 hours for close observation as patient is immunocompromised. - Time Spent with Patient Total time spent is greater than 50% in coordination of care (as documented) at patient's floor/unit and/or counseling patient: 25 - 35 minutes Plan of Care Discussed with: patient (and the nurse) Internal Medicine: Result - Labs CBC & Chem 7: 03/18/18 07:36 03/18/18 07:36 Labs: Short CBC 03/18/18 Range/Units 07:36 WBC 16.9 H (4.3-11.1) K/mcL Hgb 10.7 L (11.5-15.4) g/dL Hct 35.7 (35.3-44.9) % Plt Count 404 H (140-400) K/mcL BMP 03/18/18 07:36 Sodium 137 Potassium 3.7 Chloride 103 Carbon Dioxide 26 BUN 9 Creatinine 0.48 L Glucose 69 L Calcium 9.1 - ABG Interpretation ABG results: PT/INR, D-dimer PT 14.9 Seconds (9.4-12.1) H 03/15/18 20:19 - Impressions Impressions Echocardiogram 03/17/18 08:09 Impressions: LVEF 60%. Normal LV chamber size, wall thickness and function. Atypical septal motion of unclear etiology. Mild left ventricular diastolic dysfunction. Normal right ventricular structure and function. Mild tricuspid regurgitation. Mild pulmonary hypertension. Left Ventricular Wall Motion: Rest Echo Findings All wall segments showed normal motion. Findings: Study Quality * Technically adequate exam. ECG Findings * Normal sinus rhythm. Left Ventricle * LVEF 60%. * Normal LV chamber size, wall thickness and function. * Atypical septal motion of unclear etiology. * Mild left ventricular diastolic dysfunction. Right Ventricle * Normal right ventricular structure and function. Left Atrium * Normal left atrial size. Right Atrium * Normal right atrial size. Aortic Valve * Trileaflet aortic valve with normal function. * No aortic stenosis. * Trace aortic regurgitation. Mitral Valve * Normal mitral valve structure and function. * No mitral regurgitation. * No mitral stenosis. Tricuspid Valve * Normal tricuspid valve structure and function. * Trace tricuspid regurgitation. * Mild pulmonary hypertension. Pulmonic Valve * Normal pulmonic valve structure and function. * No pulmonic regurgitation. Pericardium * The pericardium appears normal. IVC * Normal IVC dimensions and inspiratory collapse. Aorta * Normally sized aortic root. Pulmonary Artery * Normal visualized portions of the main pulmonary artery. Consult Discharge Plan - Plan Referrals: NONE,PCP [Family Provider] - Naif Watkins MD [Primary Care Provider] - (3) Lung cancer Qualifiers: Laterality: unspecified laterality Lung location: unspecified part of lung Qualified Code(s): C34.90 - Malignant neoplasm of unspecified part of unspecified bronchus or lung
[2018-03-18] MEDS: *HR* OxyCODONE ER (12 HR) 20 MG TABLET PO SCH (22:06)
[2018-03-19] MEDS: Piperacillin/Tazobactam 3.375 GM in 0.9 % Sodium Chloride Mini Bag 100 ML IVPB SCH (02:17)
[2018-03-19] MEDS: *HR* Enoxaparin 40 MG/0.4 ML SYRINGE SQ SCH (07:00)
[2018-03-19 07:07] LABS: Basophils % 0.3 %; Eosinophils # 0.2 K/mcL (0.0-0.6); Eosinophils % 1.4 %; Hematocrit 33.2 % (35.3-44.9); Hemoglobin 9.9 g/dL (11.5-15.4); Immature Granulocytes % 1.2 % (0-4); Lymphocytes # 0.9 K/mcL (0.6-4.6); Lymphocytes % 7.8 %; Mean Corpuscular HGB Conc 29.8 g/dL (31.6-35.5); Mean Corpuscular Hemoglobin 25.1 pg (28.0-33.3); Mean Corpuscular Volume 84.3 fL (83.0-100.0); Mean Platelet Volume 9.1 fL (9.4-12.4); Monocytes # 0.4 K/mcL (0.0-1.3); Neutrophils # 9.3 K/mcL (1.6-8.9); Platelet Count 397 K/mcL (140-400); Red Blood Count 3.94 M/mcL (3.82-4.97); Red Cell Distribution Width 20.1 % (11.5-14.5); Segmented Neutrophils % 85.3 %
[2018-03-19 07:19] LABS: BUN/Creatinine Ratio 24 (6-26); Blood Urea Nitrogen 11 mg/dL (6-20); Calcium 8.9 mg/dL (8.6-10.3); Carbon Dioxide 28 mEq/L (23-29); Chloride 99 mEq/L (98-107); Glucose 86 mg/dL (70-105); Magnesium 1.9 mg/dL (1.6-2.6); Osmolality,Calculated 281 (280-300); Potassium 3.4 mEq/L (3.5-5.1); Sodium 136 mEq/L (136-145); eGFR For Non-African Americans > 60 (> 60)
[2018-03-19] MEDS: Sennosides 8.6 MG TABLET PO SCH (07:43)
[2018-03-19] MEDS: Gabapentin 300 MG CAPSULE PO SCH (07:43)
[2018-03-19] MEDS ORDERED: levoFLOXacin 750 MG TABLET PO SCH (09:15)
--- NOTE | 2018-03-19 10:40 | Discharge Summary ---
- NOTES TO OUTPATIENT PROVIDER Notes to Outpatient Provider: Follow-up with Hem&Onc within 1-2 weeks of hospital discharge. Date of Encounter: 03/19/18 Time of Encounter: 10:37 - Discharge Diagnosis (1) HCAP (healthcare-associated pneumonia) Priority: Primary Status: Acute Assessment and Plan: Resolving. (2) Non-pressure chronic ulcer of buttock with fat layer exposed Priority: Secondary Status: Chronic (3) Lung cancer Priority: Secondary Status: Chronic Qualifiers: Laterality: unspecified laterality Lung location: unspecified part of lung Qualified Code(s): C34.90 - Malignant neoplasm of unspecified part of unspecified bronchus or lung (4) Right leg swelling Priority: Secondary Status: Chronic (5) Severe protein-calorie malnutrition Priority: Secondary Status: Chronic Hospital course: Ms. Zacarias is a 57 year old female diagnosed with metastatic lung cancer in May 2017 with peripheral destructive lesion in the right proximal femur associated with fracture, [place] gangrene s/p debridement and TANYA who completed palliative radiation to her right hip in September 2017, stopped chemotherapy in December 2017 due to lack of response and is currently on nivolumab immunotherapy. Patient presented to the emergency room complaining of productive cough accompanied with rhinorrhea. As part of the workup WBC count was found to be 23,000. CTA of the chest done reported as left lower lobe infiltrate concerning for pneumonia; no emboli reported. Patient treated with broad spectrum IV antibiotics, which patient responded well. patient afebrile, WBC wnl, hemodynamically stable. Patient Seen by PT/OT who recommended patient to go SNF, but patient refused and want to go home with services. Patient being discharged home, on oral antibiotics. Recommended to f/u with her PCP and oncologist upon hospital discharge. - Time Spent with Patient Total time spent providing and/or coordinating discharge services: Less than 30 minutes - Discharge Medications Prescriptions: Amoxicillin/Clavulanate [Augmentin] 875 mg PO BIDWM 6 Days #12 tablet Home Medications: ALPRAZolam [Xanax 1 MG Tablet] 1 mg PO BID PRN 08/27/17 [History] Citalopram [CeleXA] 20 mg PO DAILY 09/11/17 [History] Promethazine [Phenergan] 25 mg PO Q6HR PRN #30 tablet 11/18/17 [Rx] Sennosides [Senokot] 8.6 mg PO BID #60 tablet 11/25/17 [Rx] Gabapentin [Neurontin] 600 mg PO TID #90 tablet 01/28/18 [Rx] Pantoprazole Sodium [Protonix] 40 mg PO DAILY #30 tablet.dr 01/28/18 [Rx] Oxycodone HCl 5 - 10 mg PO Q6H PRN 30 Days #180 tablet 02/17/18 [Rx] Oxycodone HCl [Oxycontin] 80 mg PO BID 30 Days #120 tab.er.12h 02/17/18 [Rx] Zolpidem [Ambien] 10 mg PO HS 30 Days #30 tablet 02/17/18 [Rx] Amoxicillin/Clavulanate [Augmentin] 875 mg PO BIDWM 6 Days #12 tablet 03/19/18 [ Rx] Allergies/Adverse Reactions: 3 Allergy/AdvReac Type Severity Reaction Status Date / Time hydrocodone [From [place]] AdvReac Gastrointestinal Verified 01/21/18 09:06 Upset Date of admission: 03/16/18 05:12 Primary care physician: Naif Watkins MD Consults: 03/19/18 07:31 Consult to Occupational Therapy [CONS] Routine Comment: Evaluate, develop and implement POC Reason for Consult: generaliazed weakness Does patient have active BEDREST order?: No Is patient medically & hemodynamically stable?: Yes Consult to Physical Therapy [CONS] Routine Comment: Evaluate, develop and implement POC Reason for Consult: Generalized weakness Does patient have active BEDREST order?: No Is patient medically & hemodynamically stable?: Yes - Constitutional Vitals: Temp Pulse Resp BP Pulse Ox 98.7 F 76 16 136/79 93 03/19/18 08:05 03/19/18 08:05 03/19/18 08:05 03/19/18 08:05 03/19/18 08:05 Exam: General: Alert and oriented 4. No acute distress. Cachectic with temporal wasting. Skin: Chronic decubiti ulcers. Cardiovascular: RRR, Normal S1 & S2, no rubs, murmurs or gallops. Lungs: Clear to auscultation b/l, no wheezes, rales or crackles. Abdomen: Soft, NABS in all 4 quadrants. No guarding or rigidity. Extremities: right lower extr symmetrically larger than the left. Neurological: Normal cognition. CN II-XII intact. Rest of the physical exam is non contributory - Patient Status Disposition: Home Health Service Condition: Fair Functional capacity at discharge: independent ambulation Overall status at discharge: patient is progressing back to baseline - Discharge Instructions Follow Up With: NONE,PCP [Family Provider] - Naif Watkins MD [Primary Care Provider] - - Diet and Activity Activity: as per physical therapy Diet: advance to your usual diet
--- NOTE | 2018-03-19 10:47 | Physician Discharge Referral ---
Home Health/Hosp Referral Info Transfer to: Home Health - Diagnosis (1) HCAP (healthcare-associated pneumonia) Priority: Primary Status: Acute (2) Non-pressure chronic ulcer of buttock with fat layer exposed Priority: Secondary Status: Chronic (3) Lung cancer Priority: Secondary Status: Chronic (4) Right leg swelling Priority: Secondary Status: Chronic (5) Severe protein-calorie malnutrition Priority: Secondary Status: Chronic - Respiratory Orders Oxygen / L per min (2-4 litters of O2) Smoking Cessation: Smoking cessation has been advised. For more information, call the [place] Tobacco Quit Line at 9-409-YJMZ-NOW. - Diet/Nutrition Diet/Nutrition Orders: Regular - Activity Activity Orders: Ambulate - Services Needed Following services are medically necessary services: Nursing, Home Health Aide, Physical Therapy, Occupational Therapy - Transfer Medications Prescriptions: Amoxicillin/Clavulanate [Augmentin] 875 mg PO BIDWM 6 Days #12 tablet Home Medications: ALPRAZolam [Xanax 1 MG Tablet] 1 mg PO BID PRN 08/27/17 [History] Citalopram [CeleXA] 20 mg PO DAILY 09/11/17 [History] Promethazine [Phenergan] 25 mg PO Q6HR PRN #30 tablet 11/18/17 [Rx] Sennosides [Senokot] 8.6 mg PO BID #60 tablet 11/25/17 [Rx] Gabapentin [Neurontin] 600 mg PO TID #90 tablet 01/28/18 [Rx] Pantoprazole Sodium [Protonix] 40 mg PO DAILY #30 tablet. 01/28/18 [Rx] Oxycodone HCl 5 - 10 mg PO Q6H PRN 30 Days #180 tablet 02/17/18 [Rx] Oxycodone HCl [Oxycontin] 80 mg PO BID 30 Days #120 tab.er.12h 02/17/18 [Rx] Zolpidem [Ambien] 10 mg PO HS 30 Days #30 tablet 02/17/18 [Rx] Amoxicillin/Clavulanate [Augmentin] 875 mg PO BIDWM 6 Days #12 tablet 03/19/18 [ Rx] Allergies/Adverse Reactions: 3 Allergy/AdvReac Type Severity Reaction Status Date / Time hydrocodone [From [place]] AdvReac Gastrointestinal Verified 01/21/18 09:06 Upset Certification: Further, I certify that my clinical findings support that this patient is homebound (i.e. absences from home require considerable and taxing effort and are for medical reasons or restoration services or infrequently or short duration when for other reasons) because: Homebound Reason: Patient requires assistance of a person or device to safely leave home Attestation: My signature below is to certify that this patient is under my care and that I, or nurse practitioner, or a physician's office assistant working with me, has a face-to -face encounter with this patient.
[2018-03-19] MEDS: *HR* OxyCODONE ER (12 HR) 20 MG TABLET PO SCH (10:54)
[2018-03-19 11:24] VITALS: BP 109/76
== END 2018-03-19 13:34 | disposition home health service (06) | DRG 720 ==
LOC: 2ANU 17:24 → EMEROOARM 17:24 → 2ANU 22:36 → SUATTDRO 03-16 05:12
PROVIDERS: ADMIT Internal Medicine; ATTEND Internal Medicine

== ENCOUNTER 2018-05-02 09:26 | Observation (INO) ==
--- NOTE | 2018-05-02 09:40 | Emergency Department Note ---
Disposition Clinical Impression: Altered mental status, Adenosquamous carcinoma of lung Disposition: Admitted As Inpatient Condition: Good General Adult HPI - General Chief complaint: ED Altered Mental Status Stated complaint: AMS Time Seen by Provider: 05/02/18 09:31 Source: EMS Limitations: no limitations - History of Present Illness Pain Scale: 0 - Related Data Home Medications Medication Instructions Recorded Confirmed RX: ALPRAZolam [Xanax 1 MG Tablet] 1 mg PO BID PRN 08/27/17 05/02/18 RX: Citalopram [CeleXA] 40 mg PO DAILY 09/11/17 05/02/18 Cannabidiol (Cbd) Extract 2 drop PO DAILY 05/02/18 05/02/18 [Epidiolex] Lactose-Reduced Food [Ensure 1 bottle PO TID 05/02/18 05/02/18 Liquid] Previous Rx's Medication Instructions Recorded RX: Promethazine [Phenergan] 25 mg PO Q6HR PRN #30 tablet 11/18/17 RX: Sennosides [Senokot] 8.6 mg PO BID #60 tablet 11/25/17 RX: Pantoprazole Sodium [Protonix] 40 mg PO DAILY #30 tablet. 01/28/18 RX: Zolpidem [Ambien] 10 mg PO HS 30 Days #30 tablet 02/17/18 RX: Gabapentin [Neurontin] 600 mg PO TID #90 tablet 03/30/18 Cyclobenzaprine [Flexeril] 10 mg PO TID PRN 30 Days #90 tablet 04/14/18 RX: Oxycodone HCl 10 - 15 mg PO Q6H PRN 30 Days #360 04/14/18 tablet Dronabinol [Marinol] 5 mg PO BID 30 Days #60 capsule 04/28/18 RX: Oxycodone HCl [Oxycontin] 80 mg PO BID 30 Days #120 04/28/18 tab.er.12h Allergies Allergy/AdvReac Type Severity Reaction Status Date / Time hydrocodone [From [place]] AdvReac Gastrointestinal Verified 05/02/18 09:37 Upset Past Medical History - Past Medical History Medical history: Reports: cancer, other Surgical history: Reports: other Psychiatric history: Reports: anxiety [employer] history: Reports: bilateral tubal ligation - Social History Smoking Status: Current some day smoker Smokeless Tobacco Status: No Alcohol use: Reports: none Drug use: Reports: none Physical Exam - General Limitations: no limitations General appearance: alert, in no apparent distress Course Vital Signs Temperature 97.9 F 05/02/18 09:29 Pulse Rate 107 05/02/18 09:29 Respiratory Rate 20 05/02/18 09:29 Blood Pressure 122/76 05/02/18 09:29 O2 Sat by Pulse Oximetry 85 05/02/18 09:29 Temperature 98.2 F 05/02/18 14:31 Pulse Rate 84 05/02/18 14:31 Respiratory Rate 18 05/02/18 14:31 Blood Pressure 106/66 05/02/18 14:31 O2 Sat by Pulse Oximetry 94 05/02/18 14:31 Oxygen Delivery Oxygen Delivery Room Air Medical Decision Making - Lab Data Result diagrams: 05/02/18 09:32 05/02/18 09:32 Lab Results 05/02/18 05/02/18 05/02/18 Range/Units 09:32 09:32 09:32 WBC 9.1 (4.3-11.1) K/mcL RBC 4.21 (3.82-4.97) M/mcL Hgb 10.4 L (11.5-15.4) g/dL Hct 34.3 L (35.3-44.9) % MCV 81.5 L (83.0-100.0) fL MCH 24.7 L (28.0-33.3) pg MCHC 30.3 L (31.6-35.5) g/dL RDW 20.6 H (11.5-14.5) % Plt Count 481 H (140-400) K/mcL MPV 8.6 L (9.4-12.4) fL Immature Gran % 0.3 (0-4) % Seg Neutrophils % 78.6 % Lymphocytes % 13.3 % Monocytes % 6.6 % Eosinophils % 1.1 % Basophils % 0.1 % Neutrophils # 7.2 (1.6-8.9) K/mcL Lymphocytes # 1.2 (0.6-4.6) K/mcL Monocytes # 0.6 (0.0-1.3) K/mcL Eosinophils # 0.1 (0.0-0.6) K/mcL Basophils # 0.0 (0.0-0.2) K/mcL APTT 30.6 (26.0-36.0) Seconds ABG pH (7.32-7.45) pH Units ABG pCO2 (35-45) mmHg ABG pO2 (85-104) mmHg ABG HCO3 (21-27) mEq/L ABG Total CO2 (20-26) mEq/L ABG O2 Saturation (95-98) % ABG Base Excess (-2 to 3) mEq/L VBG pH (7.32-7.42) pH Units VBG pCO2 (41-51) mmHg VBG pO2 (25-50) mmHg VBG HCO3 (21-27) mEq/L O2 Delivery Device Inspired O2 (1-15=lpm fm88-215=%) Sodium 133 L (136-145) mEq/L Potassium 4.3 (3.5-5.1) mEq/L Chloride 98 (98-107) mEq/L Carbon Dioxide 31 H (23-29) mEq/L BUN 8 (6-20) mg/dL Creatinine 0.46 L (0.60-1.20) mg/dL Est GFR ( Amer) > 60 (> 60) Est GFR (Non-Af Amer) > 60 (> 60) BUN/Creatinine Ratio 17 (6-26) Glucose 93 (70-105) mg/dL Calculated Osmolality 274 L (280-300) Lactic Acid (0.5-2.2) mmol/L Calcium 8.7 (8.6-10.3) mg/dL Total Bilirubin 0.3 (0.3-1.0) mg/dL Direct Bilirubin 0.1 (0.0-0.2) mg/dL Indirect Bilirubin 0.2 (0.0-1.2) mg/dL AST 16 (13-39) Units/L ALT 10 (7-52) Units/L Alkaline Phosphatase 122 H (34-104) Units/L Ammonia (16-53) mcmol/L Troponin I < 0.03 (< 0.04) ng/mL Serum Total Protein 6.0 L (6.4-8.9) g/dL Albumin 2.6 L (3.5-5.7) g/dL Globulin 3.4 (2.4-3.5) g/dL Albumin/Globulin Ratio 0.8 L (1.1-2.2) Urine Color (Yellow) Urine Clarity (Clear) Urine pH (5.0-8.0) pH Units Ur Specific [place] (1.010-1.025) Urine Protein (Neg-Trace) mg/dL Urine Glucose (UA) (Normal) mg/dL Urine Ketones (Negative) mg/dL Urine Blood (Negative) Urine Nitrite (Negative) Urine Bilirubin (Negative) Urine Urobilinogen (Normal) mg/dL Ur Leukocyte Esterase (Negative) Ur Culture Indicated? (NO) Urine Opiates Screen (Lcgmge=339) ng/mL Ur Barbiturates Screen (Nckiip=399) ng/mL Ur Phencyclidine Scrn (Cutoff=25) ng/mL Ur Amphetamines Screen (Sbrmrv=8598) ng/mL U Benzodiazepines Scrn (Ucogkq=100) ng/mL Urine Cocaine Screen (Cutoff= 300) ng/mL U Marijuana (THC) Screen (Cutoff = 50) ng/mL Ur Drug Screen Interp Ethyl Alcohol < 10 (Less than 10) mg/dL 05/02/18 05/02/18 05/02/18 Range/Units 09:46 09:46 09:59 WBC (4.3-11.1) K/mcL RBC (3.82-4.97) M/mcL Hgb (11.5-15.4) g/dL Hct (35.3-44.9) % MCV (83.0-100.0) fL MCH (28.0-33.3) pg MCHC (31.6-35.5) g/dL RDW (11.5-14.5) % Plt Count (140-400) K/mcL MPV (9.4-12.4) fL Immature Gran % (0-4) % Seg Neutrophils % % Lymphocytes % % Monocytes % % Eosinophils % % Basophils % % Neutrophils # (1.6-8.9) K/mcL Lymphocytes # (0.6-4.6) K/mcL Monocytes # (0.0-1.3) K/mcL Eosinophils # (0.0-0.6) K/mcL Basophils # (0.0-0.2) K/mcL APTT (26.0-36.0) Seconds ABG pH (7.32-7.45) pH Units ABG pCO2 (35-45) mmHg ABG pO2 (85-104) mmHg ABG HCO3 (21-27) mEq/L ABG Total CO2 (20-26) mEq/L ABG O2 Saturation (95-98) % ABG Base Excess (-2 to 3) mEq/L VBG pH (7.32-7.42) pH Units VBG pCO2 (41-51) mmHg VBG pO2 (25-50) mmHg VBG HCO3 (21-27) mEq/L O2 Delivery Device Inspired O2 (1-15=lpm nm58-930=%) Sodium (136-145) mEq/L Potassium (3.5-5.1) mEq/L Chloride (98-107) mEq/L Carbon Dioxide (23-29) mEq/L BUN (6-20) mg/dL Creatinine (0.60-1.20) mg/dL Est GFR ( Amer) (> 60) Est GFR (Non-Af Amer) (> 60) BUN/Creatinine Ratio (6-26) Glucose (70-105) mg/dL Calculated Osmolality (280-300) Lactic Acid 0.5 (0.5-2.2) mmol/L Calcium (8.6-10.3) mg/dL Total Bilirubin (0.3-1.0) mg/dL Direct Bilirubin (0.0-0.2) mg/dL Indirect Bilirubin (0.0-1.2) mg/dL AST (13-39) Units/L ALT (7-52) Units/L Alkaline Phosphatase (34-104) Units/L Ammonia 37 (16-53) mcmol/L Troponin I (< 0.04) ng/mL Serum Total Protein (6.4-8.9) g/dL Albumin (3.5-5.7) g/dL Globulin (2.4-3.5) g/dL Albumin/Globulin Ratio (1.1-2.2) Urine Color Yellow (Yellow) Urine Clarity Clear (Clear) Urine pH 7.5 (5.0-8.0) pH Units Ur Specific [place] 1.009 L (1.010-1.025) Urine Protein Negative (Neg-Trace) mg/dL Urine Glucose (UA) Normal (Normal) mg/dL Urine Ketones Negative (Negative) mg/dL Urine Blood Negative (Negative) Urine Nitrite Negative (Negative) Urine Bilirubin Negative (Negative) Urine Urobilinogen Normal (Normal) mg/dL Ur Leukocyte Esterase Negative (Negative) Ur Culture Indicated? NO (NO) Urine Opiates Screen (Sdaemb=405) ng/mL Ur Barbiturates Screen (Ixdfep=182) ng/mL Ur Phencyclidine Scrn (Cutoff=25) ng/mL Ur Amphetamines Screen (Qkflvp=5338) ng/mL U Benzodiazepines Scrn (Xdynps=619) ng/mL Urine Cocaine Screen (Cutoff= 300) ng/mL U Marijuana (THC) Screen (Cutoff = 50) ng/mL Ur Drug Screen Interp Ethyl Alcohol (Less than 10) mg/dL 05/02/18 05/02/18 05/02/18 Range/Units 09:59 10:04 10:08 WBC (4.3-11.1) K/mcL RBC (3.82-4.97) M/mcL Hgb (11.5-15.4) g/dL Hct (35.3-44.9) % MCV (83.0-100.0) fL MCH (28.0-33.3) pg MCHC (31.6-35.5) g/dL RDW (11.5-14.5) % Plt Count (140-400) K/mcL MPV (9.4-12.4) fL Immature Gran % (0-4) % Seg Neutrophils % % Lymphocytes % % Monocytes % % Eosinophils % % Basophils % % Neutrophils # (1.6-8.9) K/mcL Lymphocytes # (0.6-4.6) K/mcL Monocytes # (0.0-1.3) K/mcL Eosinophils # (0.0-0.6) K/mcL Basophils # (0.0-0.2) K/mcL APTT (26.0-36.0) Seconds ABG pH 7.44 (7.32-7.45) pH Units ABG pCO2 47 H (35-45) mmHg ABG pO2 106 H (85-104) mmHg ABG HCO3 32 H (21-27) mEq/L ABG Total CO2 33 H (20-26) mEq/L ABG O2 Saturation 98 (95-98) % ABG Base Excess 7 H (-2 to 3) mEq/L VBG pH 7.38 (7.32-7.42) pH Units VBG pCO2 55 H (41-51) mmHg VBG pO2 35 (25-50) mmHg VBG HCO3 32 H (21-27) mEq/L O2 Delivery Device Cannula Inspired O2 4.0 (1-15=lpm re98-278=%) Sodium (136-145) mEq/L Potassium (3.5-5.1) mEq/L Chloride (98-107) mEq/L Carbon Dioxide (23-29) mEq/L BUN (6-20) mg/dL Creatinine (0.60-1.20) mg/dL Est GFR ( Amer) (> 60) Est GFR (Non-Af Amer) (> 60) BUN/Creatinine Ratio (6-26) Glucose (70-105) mg/dL Calculated Osmolality (280-300) Lactic Acid (0.5-2.2) mmol/L Calcium (8.6-10.3) mg/dL Total Bilirubin (0.3-1.0) mg/dL Direct Bilirubin (0.0-0.2) mg/dL Indirect Bilirubin (0.0-1.2) mg/dL AST (13-39) Units/L ALT (7-52) Units/L Alkaline Phosphatase (34-104) Units/L Ammonia (16-53) mcmol/L Troponin I (< 0.04) ng/mL Serum Total Protein (6.4-8.9) g/dL Albumin (3.5-5.7) g/dL Globulin (2.4-3.5) g/dL Albumin/Globulin Ratio (1.1-2.2) Urine Color (Yellow) Urine Clarity (Clear) Urine pH (5.0-8.0) pH Units Ur Specific [place] (1.010-1.025) Urine Protein (Neg-Trace) mg/dL Urine Glucose (UA) (Normal) mg/dL Urine Ketones (Negative) mg/dL Urine Blood (Negative) Urine Nitrite (Negative) Urine Bilirubin (Negative) Urine Urobilinogen (Normal) mg/dL Ur Leukocyte Esterase (Negative) Ur Culture Indicated? (NO) Urine Opiates Screen Positive H (Ffuhnu=807) ng/mL Ur Barbiturates Screen Negative (Tppbhp=205) ng/mL Ur Phencyclidine Scrn Negative (Cutoff=25) ng/mL Ur Amphetamines Screen Negative (Jlkoxo=2985) ng/mL U Benzodiazepines Scrn Positive H (Voskhj=360) ng/mL Urine Cocaine Screen Negative (Cutoff= 300) ng/mL U Marijuana (THC) Screen Positive H (Cutoff = 50) ng/mL Ur Drug Screen Interp See Below Ethyl Alcohol (Less than 10) mg/dL Attestation Statement - Attestation Attestation: I examined this patient and my medical decision-making was reviewed with the Resident Physician. I agree with the documented findings, disposition and treatment plan as described except to the extent set forth below. [id number] time provided Patient arrives by EMS from home with altered mentation. The patient has a known history of lung cancer. Baseline medication list reviewed by me. The patient is alert and lucid but does seem somewhat confused. There is no evidence of a focal motor deficit
--- NOTE | 2018-05-02 09:40 | Emergency Department Note ---
Addendum entered and electronically signed by Francisca Aragon 05/02/18 21:31: MDM: Patient found today and yesterday to be more confused than her baseline. Lab and radiology tests reveal no acute changes beyond her baseline but she continues to be intermittently somnolent then alert. Her family believes this to be much different from her baseline. Initial concern was for hypercarbia but her ABG was found to be fairly nonspecific. The patient will be admitted for further evaluation of her altered mental status. Patient agrees with and understands course of treatment plan including plan for admission. All questions answered. Original Note: Disposition Clinical Impression: Altered mental status Qualifiers: Altered mental status type: somnolence Qualified Code(s): R40.0 - Somnolence Adenosquamous carcinoma of lung Qualifiers: Laterality: unspecified laterality Qualified Code(s): C34.90 - Malignant neoplasm of unspecified part of unspecified bronchus or lung Disposition: Admitted As Inpatient Condition: Good General Adult HPI - General Chief complaint: ED Altered Mental Status Stated complaint: AMS Time Seen by Provider: 05/02/18 09:31 Source: EMS Limitations: no limitations Nursing Notes Reviewed: Yes Vital Signs Reviewed: Yes - History of Present Illness HPI Narrative: 57-year-old female with history of lung cancer metastasized to her right hip presenting due to altered mental status. Per EMS the patient was found by her public relations supervisor and was acting differently. She was reportedly off her oxygen overnight. Per friend in the emergency department she has been "off" since yesterday with periods of alertness mixed with somnolence. She denies any pain anywhere or overtaking her under taking her medications. Pain Scale: 0 - Related Data Home Medications Medication Instructions Recorded Confirmed ALPRAZolam [Xanax 1 MG Tablet] 1 mg PO BID PRN 08/27/17 04/28/18 Citalopram [CeleXA] 40 mg PO DAILY 09/11/17 04/28/18 Previous Rx's Medication Instructions Recorded Promethazine [Phenergan] 25 mg PO Q6HR PRN #30 tablet 11/18/17 Sennosides [Senokot] 8.6 mg PO BID #60 tablet 11/25/17 Pantoprazole Sodium [Protonix] 40 mg PO DAILY #30 tablet. 01/28/18 Zolpidem [Ambien] 10 mg PO HS 30 Days #30 tablet 02/17/18 Gabapentin [Neurontin] 600 mg PO TID #90 tablet 03/30/18 Cyclobenzaprine [Flexeril] 10 mg PO TID PRN 30 Days #90 tablet 04/14/18 Oxycodone HCl 10 - 15 mg PO Q6H PRN 30 Days #360 04/14/18 tablet Dronabinol [Marinol] 5 mg PO BID 30 Days #60 capsule 04/28/18 Oxycodone HCl [Oxycontin] 80 mg PO BID 30 Days #120 04/28/18 tab.er.12h Allergies Allergy/AdvReac Type Severity Reaction Status Date / Time hydrocodone [From [place]] AdvReac Gastrointestinal Verified 05/02/18 09:37 Upset Limitations: ROS unobtainable due to patients medical condition Past Medical History - Past Medical History Attestation: Yes The following information was validated with the patient. Source: old records reviewed Medical history: Reports: cancer, other Surgical history: Reports: other Psychiatric history: Reports: anxiety STUNT DOUBLE history: Reports: bilateral tubal ligation - Social History Smoking Status: Current some day smoker Smokeless Tobacco Status: No Alcohol use: Reports: none Drug use: Reports: none Physical Exam - General Limitations: no limitations General appearance: alert, in no apparent distress, cachectic - Head Head exam: atraumatic, normocephalic - Eye Eye exam: Present: normal appearance, PERRL, EOMI - ENT ENT exam: normal exam, normal oropharynx - Neck Neck exam: Present: normal inspection, full ROM, trachea midline - Chest Chest inspection: Present: normal inspection, symmetric chest wall rise. Absent: tenderness - Respiratory Respiratory exam: Present: normal lung sounds bilaterally. Absent: respiratory distress, wheezes, stridor, accessory muscle use - Cardiovascular Cardiovascular exam: Present: regular rate, normal rhythm, normal heart sounds - Abdominal Exam Abdominal exam: Present: soft, Non-Tender, normal bowel sounds. Absent: distention, guarding, rebound, rigidity - Extremities Exam Extremities exam: Present: normal inspection. Absent: pedal edema - Expanded Lower Extremity Exam Hip/Pelvis exam: Present: other (small erythematous lesion R lateral hip). Absent: ecchymosis, deformity - Back Exam Back exam: Present: normal inspection - Neurological Exam Neurological exam: Present: alert - Expanded Neurological Exam Patient oriented to: Present: person, place. Absent: time (1997) Speech: Present: fluid speech Coma Scale Eye Opening: Spontaneous Coma Scale Motor Response: Obeys Commands Coma Scale Verbal Response: Confused Coma Scale Total: 14 - Psychiatric Psychiatric exam: Present: normal affect, normal mood - Skin Skin exam: Present: warm, dry, intact Course Course Narrative: 57-year-old female with history of lung cancer with metastasis presenting with concern for altered mental status. On examination she is protecting her airway but seems confused. We will obtain broad laboratory workup including CT head and chest x-ray. Vital Signs Temperature 97.9 F 05/02/18 09:29 Pulse Rate 107 05/02/18 09:29 Respiratory Rate 20 05/02/18 09:29 Blood Pressure 122/76 05/02/18 09:29 O2 Sat by Pulse Oximetry 85 05/02/18 09:29 Temperature 97.9 F 05/02/18 09:29 Pulse Rate 105 05/02/18 11:09 Respiratory Rate 18 05/02/18 11:09 Blood Pressure 111/85 05/02/18 11:09 O2 Sat by Pulse Oximetry 99 05/02/18 11:09 Oxygen Delivery Oxygen Delivery Nasal Cannula Medical Decision Making - Medical Records Medical records reviewed: Yes I reviewed the patient's medical records. - Lab Data Lab results reviewed: Yes I reviewed the patient's lab results. Result diagrams: 05/02/18 09:32 05/02/18 09:32 Lab Results 05/02/18 05/02/18 05/02/18 Range/Units 09:32 09:32 09:32 WBC 9.1 (4.3-11.1) K/mcL RBC 4.21 (3.82-4.97) M/mcL Hgb 10.4 L (11.5-15.4) g/dL Hct 34.3 L (35.3-44.9) % MCV 81.5 L (83.0-100.0) fL MCH 24.7 L (28.0-33.3) pg MCHC 30.3 L (31.6-35.5) g/dL RDW 20.6 H (11.5-14.5) % Plt Count 481 H (140-400) K/mcL MPV 8.6 L (9.4-12.4) fL Immature Gran % 0.3 (0-4) % Seg Neutrophils % 78.6 % Lymphocytes % 13.3 % Monocytes % 6.6 % Eosinophils % 1.1 % Basophils % 0.1 % Neutrophils # 7.2 (1.6-8.9) K/mcL Lymphocytes # 1.2 (0.6-4.6) K/mcL Monocytes # 0.6 (0.0-1.3) K/mcL Eosinophils # 0.1 (0.0-0.6) K/mcL Basophils # 0.0 (0.0-0.2) K/mcL APTT 30.6 (26.0-36.0) Seconds ABG pH (7.32-7.45) pH Units ABG pCO2 (35-45) mmHg ABG pO2 (85-104) mmHg ABG HCO3 (21-27) mEq/L ABG Total CO2 (20-26) mEq/L ABG O2 Saturation (95-98) % ABG Base Excess (-2 to 3) mEq/L VBG pH (7.32-7.42) pH Units VBG pCO2 (41-51) mmHg VBG pO2 (25-50) mmHg VBG HCO3 (21-27) mEq/L O2 Delivery Device Inspired O2 (1-15=lpm [id number]=%) Sodium 133 L (136-145) mEq/L Potassium 4.3 (3.5-5.1) mEq/L Chloride 98 (98-107) mEq/L Carbon Dioxide 31 H (23-29) mEq/L BUN 8 (6-20) mg/dL Creatinine 0.46 L (0.60-1.20) mg/dL Est GFR ( Amer) > 60 (> 60) Est GFR (Non-Af Amer) > 60 (> 60) BUN/Creatinine Ratio 17 (6-26) Glucose 93 (70-105) mg/dL Calculated Osmolality 274 L (280-300) Lactic Acid (0.5-2.2) mmol/L Calcium 8.7 (8.6-10.3) mg/dL Total Bilirubin 0.3 (0.3-1.0) mg/dL Direct Bilirubin 0.1 (0.0-0.2) mg/dL Indirect Bilirubin 0.2 (0.0-1.2) mg/dL AST 16 (13-39) Units/L ALT 10 (7-52) Units/L Alkaline Phosphatase 122 H (34-104) Units/L Ammonia (16-53) mcmol/L Troponin I < 0.03 (< 0.04) ng/mL Serum Total Protein 6.0 L (6.4-8.9) g/dL Albumin 2.6 L (3.5-5.7) g/dL Globulin 3.4 (2.4-3.5) g/dL Albumin/Globulin Ratio 0.8 L (1.1-2.2) Urine Color (Yellow) Urine Clarity (Clear) Urine pH (5.0-8.0) pH Units Ur Specific [place] (1.010-1.025) Urine Protein (Neg-Trace) mg/dL Urine Glucose (UA) (Normal) mg/dL Urine Ketones (Negative) mg/dL Urine Blood (Negative) Urine Nitrite (Negative) Urine Bilirubin (Negative) Urine Urobilinogen (Normal) mg/dL Ur Leukocyte Esterase (Negative) Ur Culture Indicated? (NO) Urine Opiates Screen (Bspyuv=444) ng/mL Ur Barbiturates Screen (Tznxsf=687) ng/mL Ur Phencyclidine Scrn (Cutoff=25) ng/mL Ur Amphetamines Screen (Hsdgus=5694) ng/mL U Benzodiazepines Scrn (Nhubmm=111) ng/mL Urine Cocaine Screen (Cutoff= 300) ng/mL U Marijuana (THC) Screen (Cutoff = 50) ng/mL Ur Drug Screen Interp Ethyl Alcohol < 10 (Less than 10) mg/dL 05/02/18 05/02/18 05/02/18 Range/Units 09:46 09:46 09:59 WBC (4.3-11.1) K/mcL RBC (3.82-4.97) M/mcL Hgb (11.5-15.4) g/dL Hct (35.3-44.9) % MCV (83.0-100.0) fL MCH (28.0-33.3) pg MCHC (31.6-35.5) g/dL RDW (11.5-14.5) % Plt Count (140-400) K/mcL MPV (9.4-12.4) fL Immature Gran % (0-4) % Seg Neutrophils % % Lymphocytes % % Monocytes % % Eosinophils % % Basophils % % Neutrophils # (1.6-8.9) K/mcL Lymphocytes # (0.6-4.6) K/mcL Monocytes # (0.0-1.3) K/mcL Eosinophils # (0.0-0.6) K/mcL Basophils # (0.0-0.2) K/mcL APTT (26.0-36.0) Seconds ABG pH (7.32-7.45) pH Units ABG pCO2 (35-45) mmHg ABG pO2 (85-104) mmHg ABG HCO3 (21-27) mEq/L ABG Total CO2 (20-26) mEq/L ABG O2 Saturation (95-98) % ABG Base Excess (-2 to 3) mEq/L VBG pH (7.32-7.42) pH Units VBG pCO2 (41-51) mmHg VBG pO2 (25-50) mmHg VBG HCO3 (21-27) mEq/L O2 Delivery Device Inspired O2 (1-15=lpm [id number]=%) Sodium (136-145) mEq/L Potassium (3.5-5.1) mEq/L Chloride (98-107) mEq/L Carbon Dioxide (23-29) mEq/L BUN (6-20) mg/dL Creatinine (0.60-1.20) mg/dL Est GFR ( Amer) (> 60) Est GFR (Non-Af Amer) (> 60) BUN/Creatinine Ratio (6-26) Glucose (70-105) mg/dL Calculated Osmolality (280-300) Lactic Acid 0.5 (0.5-2.2) mmol/L Calcium (8.6-10.3) mg/dL Total Bilirubin (0.3-1.0) mg/dL Direct Bilirubin (0.0-0.2) mg/dL Indirect Bilirubin (0.0-1.2) mg/dL AST (13-39) Units/L ALT (7-52) Units/L Alkaline Phosphatase (34-104) Units/L Ammonia 37 (16-53) mcmol/L Troponin I (< 0.04) ng/mL Serum Total Protein (6.4-8.9) g/dL Albumin (3.5-5.7) g/dL Globulin (2.4-3.5) g/dL Albumin/Globulin Ratio (1.1-2.2) Urine Color Yellow (Yellow) Urine Clarity Clear (Clear) Urine pH 7.5 (5.0-8.0) pH Units Ur Specific [place] 1.009 L (1.010-1.025) Urine Protein Negative (Neg-Trace) mg/dL Urine Glucose (UA) Normal (Normal) mg/dL Urine Ketones Negative (Negative) mg/dL Urine Blood Negative (Negative) Urine Nitrite Negative (Negative) Urine Bilirubin Negative (Negative) Urine Urobilinogen Normal (Normal) mg/dL Ur Leukocyte Esterase Negative (Negative) Ur Culture Indicated? NO (NO) Urine Opiates Screen (Pfrcfk=072) ng/mL Ur Barbiturates Screen ([place]=044) ng/mL Ur Phencyclidine Scrn (Cutoff=25) ng/mL Ur Amphetamines Screen (Qbwhgb=7137) ng/mL U Benzodiazepines Scrn (Zgspbh=465) ng/mL Urine Cocaine Screen (Cutoff= 300) ng/mL U Marijuana (THC) Screen (Cutoff = 50) ng/mL Ur Drug Screen Interp Ethyl Alcohol (Less than 10) mg/dL 05/02/18 05/02/18 05/02/18 Range/Units 09:59 10:04 10:08 WBC (4.3-11.1) K/mcL RBC (3.82-4.97) M/mcL Hgb (11.5-15.4) g/dL Hct (35.3-44.9) % MCV (83.0-100.0) fL MCH (28.0-33.3) pg MCHC (31.6-35.5) g/dL RDW (11.5-14.5) % Plt Count (140-400) K/mcL MPV (9.4-12.4) fL Immature Gran % (0-4) % Seg Neutrophils % % Lymphocytes % % Monocytes % % Eosinophils % % Basophils % % Neutrophils # (1.6-8.9) K/mcL Lymphocytes # (0.6-4.6) K/mcL Monocytes # (0.0-1.3) K/mcL Eosinophils # (0.0-0.6) K/mcL Basophils # (0.0-0.2) K/mcL APTT (26.0-36.0) Seconds ABG pH 7.44 (7.32-7.45) pH Units ABG pCO2 47 H (35-45) mmHg ABG pO2 106 H (85-104) mmHg ABG HCO3 32 H (21-27) mEq/L ABG Total CO2 33 H (20-26) mEq/L ABG O2 Saturation 98 (95-98) % ABG Base Excess 7 H (-2 to 3) mEq/L VBG pH 7.38 (7.32-7.42) pH Units VBG pCO2 55 H (41-51) mmHg VBG pO2 35 (25-50) mmHg VBG HCO3 32 H (21-27) mEq/L O2 Delivery Device Cannula Inspired O2 4.0 (1-15=lpm pi55-206=%) Sodium (136-145) mEq/L Potassium (3.5-5.1) mEq/L Chloride (98-107) mEq/L Carbon Dioxide (23-29) mEq/L BUN (6-20) mg/dL Creatinine (0.60-1.20) mg/dL Est GFR ( Amer) (> 60) Est GFR (Non-Af Amer) (> 60) BUN/Creatinine Ratio (6-26) Glucose (70-105) mg/dL Calculated Osmolality (280-300) Lactic Acid (0.5-2.2) mmol/L Calcium (8.6-10.3) mg/dL Total Bilirubin (0.3-1.0) mg/dL Direct Bilirubin (0.0-0.2) mg/dL Indirect Bilirubin (0.0-1.2) mg/dL AST (13-39) Units/L ALT (7-52) Units/L Alkaline Phosphatase (34-104) Units/L Ammonia (16-53) mcmol/L Troponin I (< 0.04) ng/mL Serum Total Protein (6.4-8.9) g/dL Albumin (3.5-5.7) g/dL Globulin (2.4-3.5) g/dL Albumin/Globulin Ratio (1.1-2.2) Urine Color (Yellow) Urine Clarity (Clear) Urine pH (5.0-8.0) pH Units Ur Specific [place] (1.010-1.025) Urine Protein (Neg-Trace) mg/dL Urine Glucose (UA) (Normal) mg/dL Urine Ketones (Negative) mg/dL Urine Blood (Negative) Urine Nitrite (Negative) Urine Bilirubin (Negative) Urine Urobilinogen (Normal) mg/dL Ur Leukocyte Esterase (Negative) Ur Culture Indicated? (NO) Urine Opiates Screen Positive H (Idqfla=279) ng/mL Ur Barbiturates Screen Negative (Tbszlm=173) ng/mL Ur Phencyclidine Scrn Negative (Cutoff=25) ng/mL Ur Amphetamines Screen Negative (Wnbowd=1647) ng/mL U Benzodiazepines Scrn Positive H (Gxqfif=753) ng/mL Urine Cocaine Screen Negative (Cutoff= 300) ng/mL U Marijuana (THC) Screen Positive H (Cutoff = 50) ng/mL Ur Drug Screen Interp See Below Ethyl Alcohol (Less than 10) mg/dL - Radiology Data Radiology results reviewed: Yes I reviewed the patient's radiology results. Chest X-Ray 05/02/18 09:32 IMPRESSION: No acute findings. D/ / 05/02/2018 10:37:04 Fran Pak MD / kellie Interpreting Provider: Fran Pak MD Head CT 05/02/18 09:32 IMPRESSION: No acute intracranial abnormality is seen. Paranasal sinus disease with near complete opacification of the maxillary sinuses right worse than left. D/ / 05/02/2018 10:53:59 Fito Dial MD / kellie Interpreting Provider: Fito Dial MD - EKG Data EKG #1 EKG attestation: Yes I reviewed and interpreted this EKG. EKG results narrative: Normal sinus rhythm rate of 96. Normal axis. TN 152, QRS 93, QTC 352, QTC 445. No evidence of ST elevation. Flattening in aVL which is changed from prior on 03/16/18.
[2018-05-02 09:57] LABS: Basophils % 0.1 %; Eosinophils # 0.1 K/mcL (0.0-0.6); Eosinophils % 1.1 %; Hematocrit 34.3 % (35.3-44.9); Hemoglobin 10.4 g/dL (11.5-15.4); Immature Granulocytes % 0.3 % (0-4); Lymphocytes # 1.2 K/mcL (0.6-4.6); Lymphocytes % 13.3 %; Mean Corpuscular HGB Conc 30.3 g/dL (31.6-35.5); Mean Corpuscular Hemoglobin 24.7 pg (28.0-33.3); Mean Corpuscular Volume 81.5 fL (83.0-100.0); Mean Platelet Volume 8.6 fL (9.4-12.4); Monocytes # 0.6 K/mcL (0.0-1.3); Monocytes % 6.6 %; Neutrophils # 7.2 K/mcL (1.6-8.9); Platelet Count 481 K/mcL (140-400); Red Blood Count 4.21 M/mcL (3.82-4.97); Red Cell Distribution Width 20.6 % (11.5-14.5); Segmented Neutrophils % 78.6 %
[2018-05-02 10:09] LABS: VBG HCO3 32 mEq/L (21-27); VBG PCO2 55 mmHg (41-51); VBG PH 7.38 pH Units (7.32-7.42); VBG PO2 35 mmHg (25-50)
[2018-05-02 10:11] LABS: ABG Base Excess 7 mEq/L (-2 to 3); ABG HCO3 32 mEq/L (21-27); ABG Oxygen Saturation 98 % (95-98); ABG PCO2 47 mmHg (35-45); ABG PH 7.44 pH Units (7.32-7.45); ABG PO2 106 mmHg (85-104); ABG TCO2 33 mEq/L (20-26)
[2018-05-02 10:14] LABS: Bilirubin,Urine Negative (Negative); Blood,Urine Negative (Negative); Clarity,Urine Clear (Clear); Color,Urine Yellow (Yellow); Glucose,Urine (UA) Normal (Normal); Ketones,Urine Negative (Negative); Leukocyte Esterase,Urine Negative (Negative); Nitrite,Urine Negative (Negative); PH,Urine 7.5 pH Units (5.0-8.0); Protein,Urine Negative (Neg-Trace); Specific Gravity,Urine 1.009 (1.010-1.025); Urobilinogen,Urine Normal (Normal)
[2018-05-02 10:18] LABS: Troponin I < 0.03 ng/mL (< 0.04)
[2018-05-02 10:19] LABS: Alanine Aminotransferase 10 Units/L (7-52); Albumin 2.6 g/dL (3.5-5.7); Albumin/Globulin Ratio 0.8 (1.1-2.2); Alkaline Phosphatase 122 Units/L (34-104); Aspartate Amino Transferase 16 Units/L (13-39); BUN/Creatinine Ratio 17 (6-26); Bilirubin,Direct 0.1 mg/dL (0.0-0.2); Bilirubin,Indirect 0.2 mg/dL (0.0-1.2); Bilirubin,Total 0.3 mg/dL (0.3-1.0); Blood Urea Nitrogen 8 mg/dL (6-20); Calcium 8.7 mg/dL (8.6-10.3); Carbon Dioxide 31 mEq/L (23-29); Chloride 98 mEq/L (98-107); Ethanol < 10 mg/dL (Less than 10); Globulin 3.4 g/dL (2.4-3.5); Glucose 93 mg/dL (70-105); Osmolality,Calculated 274 (280-300); Potassium 4.3 mEq/L (3.5-5.1); Sodium 133 mEq/L (136-145); eGFR For Non-African Americans > 60 (> 60)
[2018-05-02 10:28] LABS: Amphetamine Screen,Urine Negative ng/mL (Cutoff=1000); Barbiturate Screen,Urine Negative ng/mL (Cutoff=200); Benzodiazepines Screen,Urine Positive ng/mL (Cutoff=200); Cannabinoid Screen,Urine Positive ng/mL (Cutoff = 50); Cocaine Screen,Urine Negative ng/mL (Cutoff= 300); Opiate Screen,Urine Positive ng/mL (Cutoff=300); Phencyclidine Screen,Urine Negative ng/mL (Cutoff=25)
[2018-05-02] MEDS ORDERED: Naloxone 0.4 MG/ML INJ IVP PRN (12:23)
[2018-05-02] MEDS ORDERED: *HR* OxyCODONE Immed Rel 5 MG TABLET PO PRN ×2 (13:26→18:06)
[2018-05-02] MEDS ORDERED: ALPRAZolam 1 MG TABLET PO PRN (13:26)
--- NOTE | 2018-05-02 14:48 | Internal Med History&Physical ---
Date of Encounter: 05/02/18 Time of Encounter: 14:47 Internal Medicine - H&P: HPI Chief complaint: My friends say I am confused Admitted From: Home Plans for Post Hospital Care: Home History of present illness: Ms. Zacarias is a 57 year old female with metastatic lung cancer in May 2017 with peripheral destructive lesion in the right proximal femur associated with fracture, [place] gangrene s/p debridement and TANYA who completed palliative radiation to her right hip in September 2017, stopped chemotherapy in December 2017 due to lack of response and is currently on nivolumab immunotherapy. She has since developed chronic right lower extremity edema and undergoes wound care for non- healing surgical wound in her gluteal region and hip She has chronic resp failure on O2. She is seen and evaluated at bedside She was brought to the ER by friends/funeral home associate for concerns of confusion. Patient reports "I am not confused, I just spoke so fast they could not understand". She is AAOX3 at time of review and coherent. Her work up was negative and she had no treatment in the ER She denies taking extra of her meds, she denies any changes in her meds from her last Oncology or wound care clinics 04/28 and 04/27. She denies chest pain, SOB, palpitations, dizziness, n/v/diarrhea, leg edema, agitation, cough . She denies fever or chills She lives alone, has a visiting nurse, and daily funeral home associate, she is ambulatory with a cane and denies any falls in the past 3 months She will be placed on observation for confusion which seems to have resolved Past Med Surg Social Fam HX - Past Medical History Medical history: cancer, other Additional medical history: lung cancer Psychiatric history: anxiety - Past Surgical History Surgical History: other Additional surgical history: Femur removal, debridements - Social History Smoking Status: Current some day smoker Smokeless Tobacco Status: No Alcohol use: none Drug use: none - Family History Mother Adopted: No Family Member Ethnicity: Non- Living Status: Still Living Hx Family Cardiac Disorders: No Hx Family Respiratory Disorders: No Hx Family Cancer: No Hx Family GI Disorders: No Hx Family Endocrine Disorder: Yes Hx Family Neuromuscular Disorders: No Hx Family Neurologic Disorders: No Hx Family HEENT Disorders: No Hx Family Autoimmune Disorders: No Father Family Member Ethnicity: Non- Living Status: Still Living Internal Medicine - H&P: Meds ALPRAZolam [Xanax 1 MG Tablet] 1 mg PO BID PRN 08/27/17 [History] Citalopram [CeleXA] 40 mg PO DAILY 09/11/17 [History] Promethazine [Phenergan] 25 mg PO Q6HR PRN #30 tablet 11/18/17 [Rx] Sennosides [Senokot] 8.6 mg PO BID #60 tablet 11/25/17 [Rx] Pantoprazole Sodium [Protonix] 40 mg PO DAILY #30 tablet.dr 01/28/18 [Rx] Zolpidem [Ambien] 10 mg PO HS 30 Days #30 tablet 02/17/18 [Rx] Gabapentin [Neurontin] 600 mg PO TID #90 tablet 03/30/18 [Rx] Cyclobenzaprine [Flexeril] 10 mg PO TID PRN 30 Days #90 tablet 04/14/18 [Rx] Oxycodone HCl 10 - 15 mg PO Q6H PRN 30 Days #360 tablet 04/14/18 [Rx] Dronabinol [Marinol] 5 mg PO BID 30 Days #60 capsule 04/28/18 [Rx] Oxycodone HCl [Oxycontin] 80 mg PO BID 30 Days #120 tab.er.12h 04/28/18 [Rx] Cannabidiol (Cbd) Extract [Epidiolex] 2 drop PO DAILY 05/02/18 [History] Lactose-Reduced Food [Ensure Liquid] 1 bottle PO TID 05/02/18 [History] Allergy/AdvReac Type Severity Reaction Status Date / Time hydrocodone [From [place]] AdvReac Gastrointestinal Verified 05/02/18 09:37 Upset All Systems PM: A 10-system review of systems was performed and is negative for pertinent fi ndings except as documented above in the HPI. - Constitutional Constitutional: no chills, no fever(s), no night sweats - EENT Eyes: no change in vision, no discharge, no pain, no photophobia Ears: no ear discharge, no ear pain, no tinnitus Nose, mouth and throat: no dysphagia, no nasal discharge, no neck pain, no sore throat - Cardiovascular Cardiovascular ROS IM: no chest pain, no diaphoresis, no dyspnea, no lightheadedness, no palpitations, no syncope - Respiratory Respiratory: no cough, no dyspnea, no wheezing, no excessive phlegm production - Gastrointestinal Gastrointestinal: no abdominal pain, no diarrhea, no hematemesis, no hematochezia, no melena, no nausea, no vomiting - Genitourinary Genitourinary: no change in urinary stream, no dysuria, no flank pain, no hematuria - Musculoskeletal Musculoskeletal ROS IM: no numbness, no tingling - Integumentary Integumentary IM: no rash, no unusual bruising - Neurological Neurological ROS: as per HPI, no confusion, no convulsions, no focal weakness, no numbness, no tingling, no tremor(s) - Hematologic/Lymphatic Hematologic/Lymphatic: no easy bruising - Constitutional Vitals: Temp Pulse Resp BP Pulse Ox 98.2 F 84 18 106/66 94 05/02/18 14:31 05/02/18 14:31 05/02/18 14:31 05/02/18 14:31 05/02/18 14:31 Exam: VSS, Stable Gen: Cachectic, Calm, not in distress, speaks full sentences HEENT: Moist oral mucosa, sclera anicteric, not pale Chest: Equal chest movement bilaterally REsp: CTAB Heart: S1, S2, only, no m/g/r Abdomen: Obese, soft, not tender, BS present in al quadrants : Bilateral chronic pressure ulcers vs chronic fistula from L and R carmen- gluteal regon, L wound is draining actively Extremities: R hip with nodular lesion with associated muscular thickening - chronic, from lung mets hip. no pedal edema, pulses present bilaterally Neuro: AAOX3, no speech deficits, moves all extremities equally, no facial paralysis Psych: Affect is appropriate Internal Med - H&P Results - Labs CBC & Chem 7: 05/02/18 09:32 05/02/18 09:32 Labs: Short CBC 05/02/18 Range/Units 09:32 WBC 9.1 (4.3-11.1) K/mcL Hgb 10.4 L (11.5-15.4) g/dL Hct 34.3 L (35.3-44.9) % Plt Count 481 H (140-400) K/mcL Neutrophils # 7.2 (1.6-8.9) K/mcL BMP 05/02/18 09:32 Sodium 133 L Potassium 4.3 Chloride 98 Carbon Dioxide 31 H BUN 8 Creatinine 0.46 L Glucose 93 Calcium 8.7 Cardiac Enzymes 05/02/18 Range/Units 09:32 Troponin I < 0.03 (< 0.04) ng/mL Liver Function 05/02/18 Range/Units 09:32 Total Bilirubin 0.3 (0.3-1.0) mg/dL Direct Bilirubin 0.1 (0.0-0.2) mg/dL AST 16 (13-39) Units/L ALT 10 (7-52) Units/L Alkaline Phosphatase 122 H (34-104) Units/L Albumin 2.6 L (3.5-5.7) g/dL Urine 05/02/18 Range/Units 09:59 Urine Color Yellow (Yellow) Urine Clarity Clear (Clear) Urine pH 7.5 (5.0-8.0) pH Units Ur Specific [place] 1.009 L (1.010-1.025) Urine Protein Negative (Neg-Trace) mg/dL Urine Glucose (UA) Normal (Normal) mg/dL - ABG Interpretation ABG results: 05/02/18 05/02/18 10:04 10:08 ABG pH 7.44 ABG pCO2 47 H ABG pO2 106 H ABG HCO3 32 H ABG Total CO2 33 H ABG O2 Saturation 98 ABG Base Excess 7 H VBG pH 7.38 VBG pCO2 55 H VBG pO2 35 VBG HCO3 32 H - Impressions ITS Impressions Chest X-Ray 05/02/18 09:32 IMPRESSION: No acute findings. D/ / 05/02/2018 10:37:04 Fran Pak MD / kellie Interpreting Provider: Fran Pak MD Head CT 05/02/18 09:32 IMPRESSION: No acute intracranial abnormality is seen. Paranasal sinus disease with near complete opacification of the maxillary sinuses right worse than left. D/ / 05/02/2018 10:53:59 Fito Dial MD / [email or web address] Interpreting Provider: Fito Dial MD - Assessment and plan (1) Altered mental status Current Visit: Yes Status: Resolved Assessment and plan: Patient is alert, oriented and able to make meaningful conversation without confusion or somnolence Work up including CBC, Chem, Utox, Ammonia , LFT levels are WNL CXR and Head CT unremarkable Will keep on observation for the next 24 hrs Qualifiers: Altered mental status type: somnolence Qualified Code(s): R40.0 - Somnolence (2) Anemia Current Visit: Yes Status: Chronic Assessment and plan: At baseline Continue to monitor Qualifiers: Anemia type: iron deficiency Qualified Code(s): D50.8 - Other iron deficiency anemias (3) Depression with anxiety Current Visit: Yes Status: Chronic Assessment and plan: continue home meds (4) Metastatic lung carcinoma Current Visit: Yes Status: Chronic Assessment and plan: Actively following with Onc Progress note from 04/28 noted-patient is on therapy with nivolumab Continue follow up, as outpatient Qualifiers: Laterality: unspecified laterality Qualified Code(s): C78.00 - Secondary malignant neoplasm of unspecified lung (5) Non-healing surgical wound Current Visit: Yes Status: Chronic Assessment and plan: Dr. 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 Exam today is similar to findings in wound care clinic Patient does not currently have evidence of infection Qualifiers: Encounter type: subsequent encounter Qualified Code(s): T81.89XD - Other complications of procedures, not elsewhere classified, subsequent encounter (6) Non-pressure chronic ulcer of buttock with fat layer exposed Current Visit: Yes Status: Chronic Assessment and plan: Continue wound care (7) Severe protein-calorie malnutrition Current Visit: Yes Status: Chronic Assessment and plan: Continue po supplement (8) Tobacco abuse Current Visit: Yes Status: Chronic Assessment and plan: Encourage cessation - Time Spent With Patient Total time spent is greater than 50% in coordination of care (as documented) at patient's floor/unit and/or counseling patient:
[2018-05-02] MEDS: ENSURE PO SCH ×2 (15:16→20:32)
[2018-05-02] MEDS: Gabapentin 300 MG CAPSULE PO SCH ×2 (15:19→20:34)
[2018-05-02] MEDS: Sennosides 8.6 MG TABLET PO SCH (20:34)
[2018-05-02] MEDS: *HR* OxyCODONE ER (12 HR) 40 MG TABLET PO SCH (20:34)
[2018-05-03 05:00] LABS: Basophils % 0.3 %; Eosinophils # 0.1 K/mcL (0.0-0.6); Eosinophils % 0.7 %; Hematocrit 36.5 % (35.3-44.9); Hemoglobin 10.9 g/dL (11.5-15.4); Immature Granulocytes % 0.4 % (0-4); Lymphocytes # 1.4 K/mcL (0.6-4.6); Lymphocytes % 12.5 %; Mean Corpuscular HGB Conc 29.9 g/dL (31.6-35.5); Mean Corpuscular Hemoglobin 24.4 pg (28.0-33.3); Mean Corpuscular Volume 81.8 fL (83.0-100.0); Mean Platelet Volume 9.4 fL (9.4-12.4); Monocytes # 0.8 K/mcL (0.0-1.3); Monocytes % 6.8 %; Neutrophils # 8.9 K/mcL (1.6-8.9); Platelet Count 497 K/mcL (140-400); Red Blood Count 4.46 M/mcL (3.82-4.97); Red Cell Distribution Width 20.6 % (11.5-14.5); Segmented Neutrophils % 79.3 %
[2018-05-03 05:18] LABS: BUN/Creatinine Ratio 16 (6-26); Blood Urea Nitrogen 7 mg/dL (6-20); Calcium 8.9 mg/dL (8.6-10.3); Carbon Dioxide 26 mEq/L (23-29); Chloride 102 mEq/L (98-107); Glucose 79 mg/dL (70-105); Osmolality,Calculated 275 (280-300); Potassium 3.8 mEq/L (3.5-5.1); Sodium 134 mEq/L (136-145); eGFR For Non-African Americans > 60 (> 60)
[2018-05-03] MEDS ORDERED: *HR* Enoxaparin 40 MG/0.4 ML SYRINGE SQ SCH (06:00)
[2018-05-03 07:04] VITALS: BP 105/65
[2018-05-03] MEDS: *HR* OxyCODONE ER (12 HR) 40 MG TABLET PO SCH (08:04)
[2018-05-03] MEDS: Gabapentin 300 MG CAPSULE PO SCH (08:04)
[2018-05-03] MEDS: Sennosides 8.6 MG TABLET PO SCH (08:05)
[2018-05-03] MEDS: ENSURE PO SCH (08:05)
--- NOTE | 2018-05-03 11:10 | Discharge Summary ---
- NOTES TO OUTPATIENT PROVIDER Notes to Outpatient Provider: Follow up with PCP in one week. follow up with Dr. Wang at wound care center as scheduled before Orders not resulted at time of discharge: Pending orders 05/02/18 09:46 Culture,Blood [BC] Stat 05/02/18 14:56 Culture,Wound [RM] Stat Date of Encounter: 05/03/18 Time of Encounter: 11:06 - Discharge Diagnosis (1) Altered mental status Priority: Primary Status: Resolved Qualifiers: Altered mental status type: somnolence Qualified Code(s): R40.0 - Somnol ence (2) Tobacco abuse Priority: Secondary Status: Chronic (3) Metastatic lung carcinoma Priority: Secondary Status: Chronic Qualifiers: Laterality: unspecified laterality Qualified Code(s): C78.00 - Secondary malignant neoplasm of unspecified lung (4) Non-healing surgical wound Priority: Secondary Status: Chronic Qualifiers: Encounter type: subsequent encounter Qualified Code(s): T81.89XD - Other complications of procedures, not elsewhere classified, subsequent encounter (5) Depression with anxiety Priority: Secondary Status: Chronic (6) Non-pressure chronic ulcer of buttock with fat layer exposed Priority: Secondary Status: Chronic (7) Anemia Priority: Secondary Status: Chronic Qualifiers: Anemia type: iron deficiency Qualified Code(s): D50.8 - Other iron deficiency anemias (8) Severe protein-calorie malnutrition Priority: Secondary Status: Chronic Hospital course: Ms. Zacarias is a 57 year old female with metastatic lung cancer in May 2017 with peripheral destructive lesion in the right proximal femur associated with fracture, [place] gangrene s/p debridement and TANYA who completed palliative radiation to her right hip in September 2017, stopped chemotherapy in December 2017 due to lack of response and is currently on nivolumab immunotherapy. She has since developed chronic right lower extremity edema and undergoes wound care for non- healing surgical wound in her gluteal region and hip. She does have chronic hypoxic respiratory failure uses 2 lit oxygen at home. She was brought to the ER by friends/group home counselor for concerns of confusion. Patient reports "I am not confused, I just spoke so fast they could not understand". She does seem to have mild metabolic encephalopathy with the dehydration. Patient was started on symptomatic and supportive care with IV hydration. Today she is alert, awake and oriented X3. Does not look confused anymore. Patient would like to go home today. Will discharge her home in a stable condition today. Patient is on heavy dose of narcotics due to her cancer related pain, recommend to use the pain medication as needed only - Time Spent with Patient Total time spent providing and/or coordinating discharge services: - Discharge Medications Home Medications: ALPRAZolam [Xanax 1 MG Tablet] 1 mg PO BID PRN 08/27/17 [History] Citalopram [CeleXA] 40 mg PO DAILY 09/11/17 [History] Promethazine [Phenergan] 25 mg PO Q6HR PRN #30 tablet 11/18/17 [Rx] Sennosides [Senokot] 8.6 mg PO BID #60 tablet 11/25/17 [Rx] Pantoprazole Sodium [Protonix] 40 mg PO DAILY #30 tablet. 01/28/18 [Rx] Zolpidem [Ambien] 10 mg PO HS 30 Days #30 tablet 02/17/18 [Rx] Gabapentin [Neurontin] 600 mg PO TID #90 tablet 03/30/18 [Rx] Cyclobenzaprine [Flexeril] 10 mg PO TID PRN 30 Days #90 tablet 04/14/18 [Rx] Dronabinol [Marinol] 5 mg PO BID 30 Days #60 capsule 04/28/18 [Rx] Oxycodone HCl [Oxycontin] 80 mg PO BID 30 Days #120 tab.er.12h 04/28/18 [Rx] Cannabidiol (Cbd) Extract [Epidiolex] 2 drop PO DAILY 05/02/18 [History] Lactose-Reduced Food [Ensure Liquid] 1 bottle PO TID 05/02/18 [History] Oxycodone HCl 10 mg PO Q6H PRN 30 Days #360 tablet 05/03/18 [Rx] Allergies/Adverse Reactions: Allergy/AdvReac Type Severity Reaction Status Date / Time hydrocodone [From [place]] AdvReac Gastrointestinal Verified 05/02/18 09:37 Upset Date of admission: 05/02/18 12:08 Primary care physician: PCP NONE Consults: 05/02/18 16:18 Consult to Industrial Production Manager [CONS] Routine Reason for SW Consult: discharge planning changing home health 05/02/18 16:39 Consult to Wound Care [CONS] Routine Reason for Consult: patient has bilateral wounds on her buttocks that are being treated out patient by Dr. Wang. Please advise on wound care dressing. Call Completed: No - Constitutional Vitals: Temp Pulse Resp BP Pulse Ox 97.9 F 100 17 105/65 90 05/03/18 07:03 05/03/18 07:03 05/03/18 07:03 05/03/18 07:03 05/03/18 07:03 General appearance: Present: A&O X 3 Exam: See below - Head Head exam: Present: atraumatic, normal inspection - Neck Neck exam general surgery: Present: supple - Respiratory Respiratory exam: Present: decreased breath sounds. Absent: respiratory distress, rhonchi, wheezes - Cardiovascular Cardiovascular exam: Present: RRR, +S1, +S2. Absent: tachycardia - Back Exam Additional comments: Nonhealing surgical wound in her gluteal region and hip noticed. Dressing placed + - Neurological Exam Neurological exam: Present: alert, oriented X3 - Psychiatric Psychiatric exam: Present: normal affect, normal mood - Patient Status Disposition: Home Health Service Condition: Good Overall status at discharge: patient is back to baseline - Discharge Instructions Follow Up With: NONE,PCP [Primary Care Provider] - - Diet and Activity Activity: as per physical therapy, increase activity as tolerated, wear oxygen at all times Diet: low salt diet
--- NOTE | 2018-05-03 11:19 | Physician Discharge Referral ---
Home Health/Hosp Referral Info Transfer to: Home Health Provider in Charge Post Discharge: PCP - Diagnosis (1) Altered mental status Status: Resolved (2) Tobacco abuse Status: Chronic (3) Metastatic lung carcinoma Status: Chronic (4) Non-healing surgical wound Status: Chronic (5) Depression with anxiety Status: Chronic (6) Non-pressure chronic ulcer of buttock with fat layer exposed Status: Chronic (7) Anemia Status: Chronic (8) Severe protein-calorie malnutrition Status: Chronic - Respiratory Orders Smoking Cessation: Smoking cessation has been advised. For more information, call the [place] Tobacco Quit Line at 4-273-OIII-NOW. - Services Needed Following services are medically necessary services: Nursing, Physical Therapy, Occupational Therapy - Transfer Medications Home Medications: ALPRAZolam [Xanax 1 MG Tablet] 1 mg PO BID PRN 08/27/17 [History] Citalopram [CeleXA] 40 mg PO DAILY 09/11/17 [History] Promethazine [Phenergan] 25 mg PO Q6HR PRN #30 tablet 11/18/17 [Rx] Sennosides [Senokot] 8.6 mg PO BID #60 tablet 11/25/17 [Rx] Pantoprazole Sodium [Protonix] 40 mg PO DAILY #30 tablet. 01/28/18 [Rx] Zolpidem [Ambien] 10 mg PO HS 30 Days #30 tablet 02/17/18 [Rx] Gabapentin [Neurontin] 600 mg PO TID #90 tablet 03/30/18 [Rx] Cyclobenzaprine [Flexeril] 10 mg PO TID PRN 30 Days #90 tablet 04/14/18 [Rx] Dronabinol [Marinol] 5 mg PO BID 30 Days #60 capsule 04/28/18 [Rx] Oxycodone HCl [Oxycontin] 80 mg PO BID 30 Days #120 tab.er.12h 04/28/18 [Rx] Cannabidiol (Cbd) Extract [Epidiolex] 2 drop PO DAILY 05/02/18 [History] Lactose-Reduced Food [Ensure Liquid] 1 bottle PO TID 05/02/18 [History] Oxycodone HCl 10 mg PO Q6H PRN 30 Days #360 tablet 05/03/18 [Rx] Allergies/Adverse Reactions: Allergy/AdvReac Type Severity Reaction Status Date / Time hydrocodone [From [place]] AdvReac Gastrointestinal Verified 05/02/18 09:37 Upset Certification: Further, I certify that my clinical findings support that this patient is homebound (i.e. absences from home require considerable and taxing effort and are for medical reasons or roman catholic services or infrequently or short duration when for other reasons) because: Homebound Reason: Patient requires assistance of a person or device to safely leave home Attestation: My signature below is to certify that this patient is under my care and that I, or nurse practitioner, or a physician's training assistant working with me, has a [id number] encounter with this patient.
--- NOTE | 2018-05-04 08:14 | Electrocardiograph Report ---
[address] [place], [place] [address] Test Date: 2018-05-02 Pat Name: Elena Zacarias Department: [id number] Room: 3B21 Gender: F Operations Advisor: : [id number] Requested By: Dashawn Ny Order Number: [id number] Reading MD: Andre Russo Measurements Intervals [place] Rate: 96 P: 70 GA: 152 QRS: 16 QRSD: 93 T: 41 QT: 352 QTc: 445 Interpretive Statements Sinus rhythm Electronically Signed On 05-04-2018 8:12:53 EST by Andre Russo
== END 2018-05-03 12:28 | disposition home health service (06) ==
LOC: 3BNU 09:26 → EMEROOARM 09:26 → 3BNU 14:19
PROVIDERS: ADMIT Internal Medicine; ATTEND Internal Medicine